=== PATIENT | female | born 1935 | race Hispanic/Latino ===

== ENCOUNTER 2021-07-12 17:31 | Inpatient (IN) | payer OTHER ==
[2021-07-12 18:59] LABS: Urine Blood 1+ (Negative); Urine Glucose Negative (Negative); Urine Protein 2+ (Negative)
--- NOTE | 2021-07-12 19:04 | RAD REPORT ---
EXAM DESCRIPTION: CT - CTHCSPWOC - 07/12/2021 6:58 pm CLINICAL HISTORY: Trauma, head and neck injury. syncope, head injury COMPARISON: No comparisons TECHNIQUE: Axial 5 mm thick images of the head were obtained. Axial 2 mm thick images of the cervical spine were obtained with sagittal and coronal reconstruction images generated and reviewed. All CT scans are performed using dose optimization technique as appropriate and may include automated exposure control or mA/KV adjustment according to patient size. FINDINGS: CT HEAD WITHOUT CONTRAST: No acute hemorrhage, hydrocephalus or extra-axial collection is identified.Mild generalized brain atr ophy is present with mild periventricular and deep white matter chronic microvascular ischemic change s.No areas of brain edema or midline shift. The paranasal sinuses and mastoids are clear.The calvarium is intact. CT CERVICAL SPINE WITHOUT CONTRAST: No fracture or subluxation.Moderate lower cervical degenerative spondylosis is present.No prevertebra l soft tissues swelling is identified. IMPRESSION: No acute intracranial or cervical spine findings.
[2021-07-12 19:07] LABS: Absolute Lymphocytes (CBC) 1.9 K/uL (0.7-4.9); Hematocrit 41.7 % (36.0-45.0); Lymphocytes % 28.1 % (15.3-44.8); MPV 9.1 fL (7.6-11.3); RBC Red Blood Cell Count 4.97 M/uL (3.86-4.86)
[2021-07-12 19:09] LABS: Protime INR 0.98
[2021-07-12] MEDS ORDERED: MORPHINE 2 MG/ML SYR ONE (19:20)
[2021-07-12] MEDS ORDERED: ONDANSETRON 4 MG/2 ML VIAL ONE (19:20)
[2021-07-12] MEDS ORDERED: HYDRALAZINE HCL 20 MG/ML VIAL ONE (19:22)
[2021-07-12 19:28] LABS: Albumin 3.9 g/dL (3.4-5.0); Bilirubin Direct 0.1 mg/dL (0-0.2); Bilirubin Total 0.4 mg/dL (0.2-1.0); Magnesium 2.2 mg/dL (1.8-2.4); Potassium 3.6 mmol/L (3.5-5.1); Protein, Total 8.4 g/dL (6.4-8.2); Troponin High Sensitivity 57.1 pg/mL (<58.9)
[2021-07-12 20:07] LABS: SARS-COV-2 RT PCR NEGATIVE (NEGATIVE)
--- NOTE | 2021-07-12 20:07 | RAD REPORT ---
EXAM DESCRIPTION: CT - Head angio - 07/12/2021 7:59 pm CLINICAL HISTORY: Dizziness, non-specific Headache, drowsiness COMPARISON: <Comparisons> TECHNIQUE: CT angiography of the head was performed with MIPs. All CT scans are performed using dose optimization technique as appropriate and may include automated exposure control or mA/KV adjustment according to patient size. FINDINGS: No evidence of aneurysm is detected. No flow-limiting stenosis or vascular malformation id entified. Antegrade flow is seen in the vertebral arteries. The vertebral arteries are codominant. The visualized dural venous sinuses are patent. IMPRESSION: No significant flow abnormality is detected.
--- NOTE | 2021-07-12 20:09 | RAD REPORT ---
EXAM DESCRIPTION: CT - Neck Angio - 07/12/2021 7:56 pm CLINICAL HISTORY: Dizziness, non-specific Headache, drowsiness TECHNIQUE: CT angiography of the neck vessels was performed with MIPs. All CT scans are performed using dose optimization technique as appropriate and may include automated exposure control or mA/KV adjustment according to patient size. FINDINGS: A left aortic arch is identified with normal three vessel configuration of the great vesse ls. Mild aortic arch atherosclerosis. No significant flow abnormality is seen of the common carotid bilaterally. Mild atherosclerosis is seen in both proximal internal carotid artery/carotid artery bulbs, greater o n the right. No significant stenosis is seen of either internal carotid artery. Normal flow is seen within both vertebral arteries. IMPRESSION: No significant flow abnormality of the neck vessels.
--- NOTE | 2021-07-12 20:09 | RAD REPORT ---
EXAM DESCRIPTION: RAD - Chest Single View - 07/12/2021 7:47 pm CLINICAL HISTORY: syncope Chest pain. COMPARISON: No comparisons FINDINGS: Portable technique limits examination quality. The lungs are mildly emphysematous but grossly clear. The heart is upper limit of normal in size. No displaced fractures.Aortic atherosclerosis. IMPRESSION: No acute intrathoracic process suspected.
--- NOTE | 2021-07-12 20:31 | EDPHYS ---
Physician Documentation [facility] Name: Lashell Mathur Age: 85 yrs Sex: Female : 1935 Arrival Date: 07/12/2021 Time: 17:37 Bed 18 Private MD: ED Physician Phoebe Antonio HPI: 07/12 18:29 This 85 yrs old Female presents to ER via Ambulatory with complaints of jmm Dizziness. 18:29 The patient presents with dizziness. Onset: The symptoms/episode began/occurred jmm acutely, 1 week(s) ago. Modifying factors: The symptoms are alleviated by nothing, the symptoms are aggravated by movement of head, changing position. Is an 85-year-old female with history of hypertension the presents emerged department with complaints of left-sided headache and dizziness beginning proximally 1 week ago after she had a syncopal episode and fall hitting her head. Patient states since then she has had ongoing left-sided headache and difficulty walking secondary to dizziness. Denies chest pain or shortness of breath. She has not taken her blood pressure medication since she left from [place].. Historical: - Allergies: 18:20 No Known Allergies; vg1 - Home Meds: 18:20 None [Active]; vg1 - PMHx: 18:20 Hypertensive disorder; vg1 - Immunization history:: Client reports receiving the 2nd dose of the Covid vaccine. - Social history:: Smoking status: Patient denies any tobacco usage or history of. ROS: 18:29 Constitutional: Negative for fever, chills, and weight loss, Cardiovascular: Negative jmm for chest pain, palpitations, and edema, Respiratory: Negative for shortness of breath, cough, wheezing, and pleuritic chest pain. 18:29 Neuro: Positive for headache. 18:29 All other systems are negative. Exam: 18:29 Constitutional: This is a well developed, well nourished patient who is awake, alert, jmm and in no acute distress. Head/Face: atraumatic. 18:29 Neck: Trachea midline, Supple Chest/axilla: Normal chest wall appearance and motion. Cardiovascular: Regular rate and rhythm. No edema appreciated Respiratory: Normal respirations, no respiratory distress appreciated Abdomen/GI: Non distended, soft Back: Normal ROM Skin: General appearance color normal MS/ Extremity: Moves all extremities, no obvious deformities appreciated, no edema noted to the lower extremities 18:29 Eyes: Nystagmus: nystagmus with fast component noted, bilaterally. 18:29 Neuro: Orientation: is normal, Mentation: is normal. 18:29 Psych: Behavior/mood is pleasant, cooperative. Vital Signs: 18:17 BP 255 / 104; Pulse 89; Resp 16; Temp 98.2; Pulse Ox 100% ; Weight 53.52 kg; Height 5 vg1 ft. 4 in. (162.56 cm); Pain 8/10; 19:22 BP 215 / 92; Pulse 90; Resp 16 S; Pulse Ox 98% on R/A; Pain 10/10; ag7 19:30 BP 218 / 85; Pulse 91 MON; Resp 19; Pulse Ox 99% on R/A; Pain 10/10; ag7 19:35 BP 189 / 72; Pulse 83; Resp 19 S; Pulse Ox 98% on R/A; Pain 10/10; ag7 20:16 BP 133 / 114; Pulse 102; Resp 19 S; Pulse Ox 98% on R/A; Pain 5/10; ag7 21:15 BP 150 / 67; Pulse 78; Resp 12; Pulse Ox 95% ; Pain 0/10; ag7 21:29 Pain 5/10; ag7 18:17 Body Mass Index 20.25 (53.52 kg, 162.56 cm) vg1 MDM: 18:29 Patient medically screened. [facility] 20:27 Data reviewed: vital signs, nurses notes. Counseling: I had a detailed discussion with kamran the patient and/or guardian regarding: the historical points, exam findings, and any diagnostic results supporting the discharge/admit diagnosis, lab results, radiology results, the need for further work-up and treatment in the hospital. ED course: I discussed the patient with Theresa Tapia whom accepted the patient to Dr. Lord's service. . 07/12 18:30 Order name: Basic Metabolic Panel; Complete Time: 19:32 [facility] 07/12 18:30 Order name: CBC with Diff; Complete Time: 19:13 [facility] 07/12 18:30 Order name: LFT's; Complete Time: 19:32 [facility] 07/12 18:30 Order name: Magnesium; Complete Time: 19:32 [facility] 07/12 18:30 Order name: NT PRO-BNP; Complete Time: 19:32 [facility] 07/12 18:30 Order name: PT-INR; Complete Time: 19:13 [facility] 07/12 18:30 Order name: Troponin HS; Complete Time: 19:32 [facility] 07/12 18:30 Order name: XRAY Chest (1 view); Complete Time: 20:10 [facility] 07/12 18:30 Order name: CT Head C Spine; Complete Time: 19:13 [facility] 07/12 18:34 Order name: COVID-19/FLU A+B (Document "Date of Onset" if Symptomatic); Complete Time: [facility] 20:08 07/12 18:59 Order name: Urine Dipstick-Ancillary; Complete Time: 19:01 [facility] 07/12 19:34 Order name: CT Head Angio; Complete Time: 20:08 [facility] 07/12 19:34 Order name: CT Neck Angio; Complete Time: 20:10 [facility] 07/12 18:30 Order name: EKG; Complete Time: 18:31 [facility] 07/12 18:30 Order name: Cardiac monitoring; Complete Time: 19:40 [facility] 07/12 18:30 Order name: EKG - Nurse/Tech; Complete Time: 19:40 [facility] 07/12 18:30 Order name: IV Saline Lock; Complete Time: 19:09 [facility] 07/12 18:30 Order name: Labs collected and sent; Complete Time: 19:09 [facility] 07/12 18:30 Order name: O2 Per Protocol; Complete Time: 19:09 [facility] 07/12 18:30 Order name: O2 Sat Monitoring; Complete Time: 19:09 [facility] Administered Medications: 19:39 Drug: morphine 2 mg Route: IVP; Site: right antecubital; ag7 21:29 Follow up: Pain 5/10 Adult; Response: No adverse reaction; Marked relief of symptoms; ag7 RASS: Alert and Calm (0) 19:39 Drug: Zofran (Ondansetron) 4 mg Route: IVP; Site: right antecubital; ag7 20:00 Follow up: Response: No adverse reaction; Marked relief of symptoms ag7 19:39 Drug: hydrALAZINE 5 mg Route: IVP; Site: right antecubital; ag7 20:00 Follow up: Response: No adverse reaction; Marked relief of symptoms ag7 20:56 Drug: Rocephin (cefTRIAXone) 1 grams Route: IV; Rate: calculated rate; Site: right ag7 antecubital; 20:57 Follow up: IV Status: Completed infusion; IV Intake: 10ml ag7 21:28 Follow up: Response: No adverse reaction ag7 20:56 Drug: Meclizine 25 mg Route: PO; ag7 21:28 Follow up: Response: No adverse reaction ag7 Disposition Summary: 07/12/21 20:30 Hospitalization Ordered Hospitalization Status: Observation [facility] Provider: Matthew Lord Location: Telemetry/MedSurg (observation) [facility] Condition: Stable [facility] Problem: new m Symptoms: are unchanged [facility] Bed/Room Type: Standard [facility] Room Assignment: 221(07/12/21 21:34) vc1 Diagnosis - Vertigo jmm - Syncope jmm - Urinary Tract Infection [facility] Forms: - Medication Reconciliation Form [facility] - SBAR form [facility] Addendum: 07/17/2021 18:07 Co-signature as Attending Physician, hPoebe Antonio MD. m a2 Signatures: Dispatcher [employer] EDMS Helder Cruz PA PA Phoebe Baxter MD MD ma2 Kimberly Ricardo RN RN vg1 Christina Fuchs RN RN vc1 Shahnaz Nieto, ALICAI RN ag7 Corrections: (The following items were deleted from the chart) 07/12 21:34 20:30 [facility] vc1
--- NOTE | 2021-07-12 20:31 | ER ---
Nurse's Notes [facility] Name: Lashell Mathur Age: 85 yrs Sex: Female : 1935 Arrival Date: 07/12/2021 Time: 17:37 Bed 18 Private MD: Diagnosis: Vertigo;Syncope;Urinary Tract Infection Presentation: 07/12 18:17 Chief complaint: Patient states: Last week Wednesday pt states fainted and fell and hit vg1 head; states has been feeling dizzy with headache since. Denies N/V. Stated did not get medical care last week. Coronavirus screen: Vaccine status: Patient reports receiving the 2nd dose of the covid vaccine. Client denies travel out of the [place] in the last 14 days. Ebola Screen: Patient denies exposure to infectious person. Patient denies travel to an Ebola-affected area in the 21 days before illness onset. Initial Sepsis Screen: Does the patient meet any 2 criteria? No. Patient's initial sepsis screen is negative. Does the patient have a suspected source of infection? No. Patient's initial sepsis screen is negative. Risk Assessment: Do you want to hurt yourself or someone else? Patient reports no desire to harm self or others. Onset of symptoms was July 05, 2021. 18:17 Method Of Arrival: Ambulatory vg1 18:17 Acuity: TERESA 2 vg1 Triage Assessment: 18:20 General: Appears uncomfortable, Behavior is calm, cooperative. Pain: Complains of pain vg1 in head Pain currently is 8 out of 10 on a pain scale. Neuro: Level of Consciousness is awake, alert, obeys commands, Oriented to person, place, time, situation. Respiratory: Airway is patent Respiratory effort is even, unlabored. GI: Patient currently denies nausea, vomiting. :. Historical: - Allergies: 18:20 No Known Allergies; vg1 - Home Meds: 18:20 None [Active]; vg1 - PMHx: 18:20 Hypertensive disorder; vg1 - Immunization history:: Client reports receiving the 2nd dose of the Covid vaccine. - Social history:: Smoking status: Patient denies any tobacco usage or history of. Screenin:02 Abuse screen: Denies threats or abuse. Nutritional screening: No deficits noted. ag7 Tuberculosis screening: No symptoms or risk factors identified. Fall Risk Fall in past 12 months (25 points). Secondary diagnosis (15 points) IV access (20 points). Ambulatory Aid- None/Bed Rest/Nurse Assist (0 pts). Gait- Weak (10 pts.). Mental Status- Oriented to own ability (0 pts). Total Holly Fall Scale indicates High Risk Score (45 or more points). Fall prevention measures have been instituted. Side Rails Up X 2 Placed Close to Nursing Station Frequent Obs/Assessments Occuring Family Present and informed to notify staff if the need to leave the bedside As available patient and family educated on Fall Prevention Program and Strategies. Assessment: 19:00 General: Appears in no apparent distress. Behavior is calm, cooperative, appropriate ag7 for age. Pain: Complains of pain in forehead Pain does not radiate. Pain currently is 10 out of 10 on a pain scale. Quality of pain is described as aching, pressure, Pain began suddenly, Is intermittent. Neuro: Level of Consciousness is awake, alert, obeys commands, Oriented to Appropriate for age Reports dizziness. Cardiovascular: Heart tones S1 S2 present Capillary refill < 3 seconds in bilateral fingers Clubbing of nail beds is absent Patient's skin is warm and dry. Pulses are palpable in right radial artery and left radial artery Edema is absent. Rhythm is. Respiratory: Airway is patent Trachea midline Respiratory effort is even, unlabored, Respiratory pattern is regular, symmetrical, Breath sounds are clear bilaterally. 21:27 Derm: Skin is dusky. ag7 22:00 Reassessment: Patient and/or family updated on plan of care and expected duration. Pain ag7 level reassessed. Patient is alert, oriented x 3, equal unlabored respirations, skin warm/dry/pink. 22:13 Reassessment: spoke to Shanelle for report RM 221, call back pending. ag7 Vital Signs: 18:17 BP 255 / 104; Pulse 89; Resp 16; Temp 98.2; Pulse Ox 100% ; Weight 53.52 kg; Height 5 vg1 ft. 4 in. (162.56 cm); Pain 8/10; 19:22 BP 215 / 92; Pulse 90; Resp 16 S; Pulse Ox 98% on R/A; Pain 10/10; ag7 19:30 BP 218 / 85; Pulse 91 MON; Resp 19; Pulse Ox 99% on R/A; Pain 10/10; ag7 19:35 BP 189 / 72; Pulse 83; Resp 19 S; Pulse Ox 98% on R/A; Pain 10/10; ag7 20:16 BP 133 / 114; Pulse 102; Resp 19 S; Pulse Ox 98% on R/A; Pain 5/10; ag7 21:15 BP 150 / 67; Pulse 78; Resp 12; Pulse Ox 95% ; Pain 0/10; ag7 21:29 Pain 5/10; ag7 18:17 Body Mass Index 20.25 (53.52 kg, 162.56 cm) vg1 ED Course: 17:37 Patient arrived in ED. ds1 18:20 Triage completed. vg1 18:20 Arm band placed on. 1 18:24 Helder Cruz PA is PHCP. m 18:24 Phoebe Antonio MD is Attending Physician. jmm 18:57 Yumiko Rodriguez, RN is Primary Nurse. ll1 18:57 Patient placed in an exam room, on a stretcher. ll1 18:58 Inserted saline lock: 20 gauge in right antecubital area, using aseptic technique. mb7 Blood collected. 18:59 CT Head C Spine In Process Unspecified. EDMS 18:59 COVID-19/FLU A+B (Document "Date of Onset" if Symptomatic) Sent. mb7 19:09 Basic Metabolic Panel Sent. mb7 19:09 Troponin HS Sent. mb7 19:10 PT-INR Sent. mb7 19:10 NT PRO-BNP Sent. mb7 19:10 LFT's Sent. mb7 19:10 Magnesium Sent. mb7 19:22 EKG done, by ED staff, reviewed by Helder BELTRE. mb7 19:29 Primary Nurse role handed off by Yumiko Rodriguez, RN mw2 19:39 Shahnaz Nieto, RN is Primary Nurse. ag7 19:49 XRAY Chest (1 view) In Process Unspecified. EDMS 19:57 CT Neck Angio In Process Unspecified. EDMS 20:00 CT Head Angio In Process Unspecified. EDMS 20:29 Matthew Lord is Hospitalizing Provider. m 21:03 Patient has correct armband on for positive identification. Bed in low position. Call ag7 light in reach. Side rails up X 1. Adult w/ patient. 21:03 No provider procedures requiring assistance completed. ag7 22:42 Patient admitted, IV remains in place. ag7 Administered Medications: 19:39 Drug: morphine 2 mg Route: IVP; Site: right antecubital; ag7 21:29 Follow up: Pain 5/10 Adult; Response: No adverse reaction; Marked relief of symptoms; ag7 RASS: Alert and Calm (0) 19:39 Drug: Zofran (Ondansetron) 4 mg Route: IVP; Site: right antecubital; ag7 20:00 Follow up: Response: No adverse reaction; Marked relief of symptoms ag7 19:39 Drug: hydrALAZINE 5 mg Route: IVP; Site: right antecubital; ag7 20:00 Follow up: Response: No adverse reaction; Marked relief of symptoms ag7 20:56 Drug: Rocephin (cefTRIAXone) 1 grams Route: IV; Rate: calculated rate; Site: right ag7 antecubital; 20:57 Follow up: IV Status: Completed infusion; IV Intake: 10ml ag7 21:28 Follow up: Response: No adverse reaction ag7 20:56 Drug: Meclizine 25 mg Route: PO; ag7 21:28 Follow up: Response: No adverse reaction ag7 Intake: 20:57 IV: 10ml; Total: 10ml. 7 Outcome: 20:30 Decision to Hospitalize by Provider. [facility] 22:41 Admitted to Med/surg accompanied by nurse, via wheelchair, room 221, Report called to olivia Wilhelm RN 22:41 Condition: stable 23:03 Patient left the ED. [facility] Signatures: Dispatcher [employer] EDMS Helder Cruz PA PA jmm [place], Demi ds1 Anjel Galeas mw2 Kimberly Ricardo, RN RN vg1 Yumiko Rodriguez RN RN mayra1 Irais Mcclelland mb7 Shahnaz Nieto, RN RN 7 Corrections: (The following items were deleted from the chart) 21:23 21:22 BP 218 / 85; Pulse 91bpm; MonitorResp 19bpm; Pulse Ox 99% RA; Pain 10/10; ag7 ag7 21:27 19:00 Respiratory: Airway is patent Trachea midline Respiratory effort is even, ag7 unlabored, Respiratory pattern is regular, symmetrical, Breath sounds are clear bilaterally. ag7 21:29 21:29 Response: No adverse reaction; Marked relief of symptoms ag7 ag7
[2021-07-12] MEDS ORDERED: MECLIZINE HCL 12.5 MG TAB ONE (20:48)
[2021-07-12] MEDS ORDERED: CEFTRIAXONE 1000 MG/VIAL ONE (20:49)
--- NOTE | 2021-07-12 22:55 | P.HP ---
Certification for Inpatient Patient admitted to: Inpatient With expected LOS: <2 Midnights Patient will require the following post-hospital care: None Practitioner: I am a practitioner with admitting privileges, knowledge of patient current condition, hospital course, and medical plan of care. Services: Services provided to patient in accordance with Admission requirements found in Title 42 Section 412.3 of the Code of Federal Regulations Patient History Date of Service: 07/12/21 Reason for admission: Dizziness History of Present Illness: Patient is an 85-year-old female with past medical history of hypertension who presented to the ED with complaints of left-sided headache and dizziness. She states that about 1 week ago, she fell and hit her head (unsure if she fell because of syncope or fell then had LOC). Since then, she has had ongoing left-sided headache and difficulty walking secondary to dizziness. She denies chest pain or shortness of breath. Patient is visiting her family from [place] and has not taken her blood pressure pressure medication since being here. She does not know the name of the medication she takes. She states that she is otherwise healthy and has no other medical problems. Initial blood pressure was 255/104 and she was given 5 mg of hydralazine and blood pressure eventually came down to 150/67. Head CT and CT head/neck angio negative. She was given meclizine which improved her dizziness. Other labs significant for BNP of 966 and urine positive for UTI. ED provider wishes to admit patient for further evaluation and treatment. Allergies No Known Allergies Allergy (Verified 07/12/21 23:20) - Past Medical/Surgical History Diabetic: No -: HTN Past Surgical History: Patient denies surgical history Psychosocial/ Personal History: Patient is visiting from [place]. - Family History Father -: Heart disease - Social History Smoking Status: Never smoker Alcohol use: No CD- Drugs: No Caffeine use: No Place of Residence: Home Review of Systems General: Other (dizziness, headache) Neurological: Weakness, Other (fall) Physical Examination - Physical Exam General: Alert, In no apparent distress, Oriented x3 HEENT: Atraumatic, PERRLA, Mucous membr. moist/pink, EOMI, Sclerae nonicteric Neck: Supple, 2+ carotid pulse no bruit, No LAD, Without JVD or thyroid abnormality Respiratory: Clear to auscultation bilaterally, Normal air movement Cardiovascular: Regular rate/rhythm, Normal S1 S2 Gastrointestinal: Normal bowel sounds, No tenderness Musculoskeletal: No tenderness Integumentary: No rashes Neurological: Normal speech, Normal strength at 5/5 x4 extr, Normal tone, Normal affect - Studies Laboratory Data (last 24 hrs) 07/12/21 18:45: PT 10.8, INR 0.98 07/12/21 18:45: WBC 6.8, Hgb 13.5, Hct 41.7, Plt Count 200 07/12/21 18:45: Sodium 140, Potassium 3.6, BUN 19 H, Creatinine 1.41 H, Glucose 108 H, Magnesium 2.2, Total Bilirubin 0.4, AST 14 L, ALT 23, Alkaline Phosphatase 101 Assessment and Plan - Problems (Diagnosis) (1) Falls Current Visit: Yes Status: Acute Qualifiers: Encounter type: sequela Qualified Code(s): W19.XXXS - Unspecified fall, sequela (2) Vertigo Current Visit: Yes Status: Acute (3) Hypertensive urgency Current Visit: Yes Status: Acute (4) UTI (urinary tract infection) Current Visit: Yes Status: Acute Qualifiers: Urinary tract infection type: acute cystitis Hematuria presence: without hematuria Qualified Code(s): N30.00 - Acute cystitis without hematuria (5) Hypertension Current Visit: Yes Status: Chronic Qualifiers: Hypertension type: primary hypertension Qualified Code(s): I10 - Essential (primary) hypertension - Plan -nystagmus noted on physical exam. Dizziness likely related to vertigo -Patient has been very hypertensive. Given hydralazine in the ED. We will start patient on metoprolol and hydralazine as needed. Monitor on telemetry -Patient has a UTI. Got 1 g Rocephin in the ED. We will continue -Consider neurology consult if patient's worsens/does not improve. Consider MRI. -Meclizine PRN dizziness -Continue IV fluids -Lovenox for DVT prophylaxis Discharge Plan: Home Plan to discharge in: 48 Hours - Advance Directives Does patient have a Living Will: No Does patient have a Durable POA for Healthcare: No - Code Status/Comfort Care Code Status Assessed: Yes (Full) Physician Review: Patient Assessed, Agree with Above Assessment and Plan Critical Care: No Time Spent Managing Pts Care (In Minutes): 50
[2021-07-12] MEDS ORDERED: MECLIZINE HCL 12.5 MG TAB PO PRN (23:02)
[2021-07-12] MEDS ORDERED: ONDANSETRON 4 MG/2 ML VIAL IV PRN (23:02)
[2021-07-12] MEDS: NA CHLORIDE 0.9% 1,000 ML IV SCH (23:49)
[2021-07-13 01:14] LABS: Urine Appearance Clear (Clear); Urine Bilirubin Negative (Negative); Urine Blood Trace-intact (Negative); Urine Color Yellow (Yellow); Urine Glucose Negative (Negative); Urine Protein 1+ (Negative); Urine Urobilinogen 0.2 mg/dL (0.2-1.0)
[2021-07-13 01:18] LABS: Urine Microscopic Reflex ORDER UMIC
[2021-07-13 01:30] LABS: Urine Bacteria >50 /HPF (<20); Urine Mucus 1+ /HPF (NONE SEEN); Urine Yeast MANY (NONE SEEN)
[2021-07-13 03:48] LABS: Absolute Lymphocytes (CBC) 1.4 K/uL (0.7-4.9); Lymphocytes % 17.8 % (15.3-44.8); RBC Red Blood Cell Count 4.56 M/uL (3.86-4.86)
[2021-07-13 04:17] LABS: Bilirubin Total 0.2 mg/dL (0.2-1.0); Magnesium 2.1 mg/dL (1.8-2.4); Phosphorus 3.5 mg/dL (2.5-4.9); Potassium 3.8 mmol/L (3.5-5.1); Protein, Total 6.7 g/dL (6.4-8.2); Thyroid Stimulating Hormone 0.75 uIU/mL (0.360-3.740)
[2021-07-13] MEDS: METOPROLOL TAR 25 MG TAB PO SCH ×2 (06:14→18:48)
[2021-07-13] MEDS: INSULIN -REGULAR HUMAN 50 UNIT/0.5 ML ML SQ SCH ×2 (07:30→11:30)
[2021-07-13] MEDS ORDERED: PNEUMOCOCCAL VACCINE 0.5 ML IMVAC ONE (08:00)
[2021-07-13] MEDS: ENOXAPARIN 30 MG/0.3 ML SQ SCH (09:12)
[2021-07-13] MEDS: NA CHLORIDE 0.9% 1,000 ML IV SCH (12:04)
[2021-07-13] MEDS: HYDRALAZINE HCL 20 MG/ML VIAL IV PRN ×2 (12:04→16:47)
--- NOTE | 2021-07-13 13:06 | P.PN ---
Subjective Date of Service: 07/13/21 Chief Complaint: Dizziness Patient stated dizziness has resolved. Blood pressure readings have improved. Physical Examination - Vital Signs Temperature: 97.0 F Blood Pressure: 188/88 Pulse: 70 Respirations: 16 Pulse Ox (%): 99 - Physical Exam General: Alert, In no apparent distress, Oriented x3 HEENT: Mucous membr. moist/pink Neck: JVD not distended Respiratory: Clear to auscultation bilaterally, Normal air movement Cardiovascular: No edema, Regular rate/rhythm, Normal S1 S2 Gastrointestinal: Soft and benign, Non-distended, No tenderness Musculoskeletal: No swelling, No tenderness Integumentary: No rashes, No cyanosis Neurological: Normal strength at 5/5 x4 extr, Cranial nerves 3-12 intact - Studies Laboratory Data (last 24 hrs) 07/12/21 18:45: PT 10.8, INR 0.98 07/12/21 18:45: WBC 6.8, Hgb 13.5, Hct 41.7, Plt Count 200 07/12/21 18:45: Sodium 140, Potassium 3.6, BUN 19 H, Creatinine 1.41 H, Glucose 108 H, Magnesium 2.2, Total Bilirubin 0.4, AST 14 L, ALT 23, Alkaline Phospha tase 101 Assessment And Plan - Current Problems (Diagnosis) (1) Falls Current Visit: Yes Status: Acute Qualifiers: Encounter type: sequela Qualified Code(s): W19.XXXS - Unspecified fall, sequela (2) Hypertensive urgency Current Visit: Yes Status: Acute (3) UTI (urinary tract infection) Current Visit: Yes Status: Acute Qualifiers: Urinary tract infection type: acute cystitis Hematuria presence: without hematuria Qualified Code(s): N30.00 - Acute cystitis without hematuria (4) Vertigo Current Visit: Yes Status: Acute (5) Chronic kidney disease, stage III (moderate) Current Visit: Yes Status: Acute - Plan Dizziness and vertigo resolved, blood pressure improved. Vertigo likely related to severe hypertension. Continue metoprolol. Add amlodipine. Seen by PT and assistive device with ambulation recommended. Continue IV Rocephin. Follow urine culture. Monitor renal function. Continue PT. Physician Review: Patient Assessed, Agree with Above Assessment and Plan
[2021-07-13] MEDS: ACETAMINOPHEN 500 MG TAB PO PRN (16:51)
[2021-07-13] MEDS ORDERED: CEFTRIAXONE 1000 MG/VIAL ONE (16:53)
[2021-07-13] MEDS ORDERED: CEFTRIAXONE 1,000 MG in NA CHLORIDE 0.9% 50 ML IVPB SCH (18:00)
[2021-07-14] MEDS: NA CHLORIDE 0.9% 1,000 ML IV SCH (01:16)
[2021-07-14 04:16] VITALS: BMI 19.7
[2021-07-14 04:35] LABS: Absolute Lymphocytes (CBC) 1.5 K/uL (0.7-4.9); Hematocrit 35.5 % (36.0-45.0); Lymphocytes % 21.5 % (15.3-44.8); MPV 9.2 fL (7.6-11.3); RBC Red Blood Cell Count 4.31 M/uL (3.86-4.86)
[2021-07-14 04:55] LABS: Albumin 2.9 g/dL (3.4-5.0); Bilirubin Total 0.3 mg/dL (0.2-1.0); Protein, Total 6.3 g/dL (6.4-8.2)
[2021-07-14] MEDS: METOPROLOL TAR 25 MG TAB PO SCH (05:26)
[2021-07-14] MEDS: ACETAMINOPHEN 500 MG TAB PO PRN ×2 (05:29→09:46)
[2021-07-14] MEDS: ENOXAPARIN 30 MG/0.3 ML SQ SCH (09:43)
[2021-07-14] MEDS: HYDRALAZINE HCL 20 MG/ML VIAL IV PRN (09:46)
[2021-07-14 09:51] VITALS: O2SAT 98
--- NOTE | 2021-07-14 11:05 | P.DS ---
Admission Date: 07/12/21 Discharge Date: 07/14/21 Disposition: ROUTINE DISCHARGE Discharge Condition: FAIR Reason for Admission: Dizziness - Problems (1) Falls Status: Acute Qualifiers: Encounter type: sequela Qualified Code(s): W19.XXXS - Unspecified fall, sequela (2) Hypertensive urgency Status: Acute (3) UTI (urinary tract infection) Status: Acute Qualifiers: Urinary tract infection type: acute cystitis Hematuria presence: without hematuria Qualified Code(s): N30.00 - Acute cystitis without hematuria (4) Vertigo Status: Acute (5) Chronic kidney disease, stage III (moderate) Status: Acute Brief History of Present Illness: 85-year-old female with past medical history of hypertension presented to the ED with complaints of left-sided headache and dizziness. She states that about 1 week ago, she fell and hit her head (unsure if she fell because of syncope or fell then had LOC). Since then, she has had ongoing left-sided headache and difficulty walking secondary to dizziness. She denied chest pain or shortness of breath. Patient is visiting her family from [place] and had not taken her blood pressure pressure medication since being here. She does not know the name of the medication she takes. She stated that she is otherwise healthy and has no other medical problems. Initial blood pressure was 255/104 and she was given 5 mg of hydralazine and blood pressure eventually came down to 150/67. Head CT and CT head/neck angio negative. She was given meclizine which improved her dizziness. Other labs significant for BNP of 966 and urine positive for UTI. Patient admitted for further management. Hospital Course: Patient was admitted to the medical floor, troponin trended negative, blood pressure was managed with oral metoprolol. Hydralazine given for BP spike. Blood pressure improved with treatment. UA suggested the presence of UTI. Urine culture yielded mixed growth. Patient briefly treated with IV Rocephin. She was seen by physical therapy and she ambulated up to 260 feet with a walker. Patient has clinically improved and deemed stable for discharge. She will need home health. She stated she is planning to go back to [place] within days. Patient prescribed metoprolol and amlodipine for blood pressure control. Vital Signs/Physical Exam: Temp Pulse Resp BP Pulse Ox 98.1 F 71 16 161/73 H 98 07/14/21 08:00 07/14/21 08:00 07/14/21 08:00 07/14/21 08:00 07/14/21 08:00 General: Alert, In no apparent distress, Oriented x3 HEENT: Mucous membr. moist/pink Neck: Supple, JVD not distended Respiratory: Clear to auscultation bilaterally, Normal air movement Cardiovascular: No edema, Regular rate/rhythm, Normal S1 S2 Gastrointestinal: Soft and benign, Non-distended, No tenderness Musculoskeletal: No swelling Integumentary: No tenderness/swelling, No cyanosis Neurological: Normal strength at 5/5 x4 extr Laboratory Data at Discharge: WBC 6.9 K/uL (4.3-10.9) 07/14/21 04:01 Hgb 11.8 g/dL (12.0-15.0) L 07/14/21 04:01 Hct 35.5 % (36.0-45.0) L 07/14/21 04:01 Plt Count 186 K/uL (152-406) 07/14/21 04:01 PT 10.8 SECONDS (9.5-12.5) 07/12/21 18:45 INR 0.98 07/12/21 18:45 Sodium 144 mmol/L (136-145) 07/14/21 04:01 Potassium 4.0 mmol/L (3.5-5.1) 07/14/21 04:01 BUN 17 mg/dL (7-18) 07/14/21 04:01 Creatinine 1.30 mg/dL (0.55-1.3) 07/14/21 04:01 Glucose 116 mg/dL (74-106) H 07/14/21 04:01 Phosphorus 3.5 mg/dL (2.5-4.9) 07/13/21 03:33 Magnesium 2.1 mg/dL (1.8-2.4) 07/13/21 03:33 Total Bilirubin 0.3 mg/dL (0.2-1.0) 07/14/21 04:01 AST 12 U/L (15-37) L 07/14/21 04:01 ALT 17 U/L (12-78) 07/14/21 04:01 Alkaline Phosphatase 75 U/L (45-117) 07/14/21 04:01 Triglycerides 135 mg/dL (<150) 07/13/21 03:33 Cholesterol 184 mg/dL (<200) 07/13/21 03:33 HDL Cholesterol 41 mg/dL (40-60) 07/13/21 03:33 Cholesterol/HDL Ratio 4.49 07/13/21 03:33 Home Medications: Amlodipine [Norvasc*] 5 mg PO DAILY #30 tab 07/14/21 Metoprolol Tartrate [Lopressor*] 25 mg PO BID 6AM 6PM #60 tab 07/14/21 New Medications: Metoprolol Tartrate [Lopressor*] 25 mg PO BID 6AM 6PM #60 tab Amlodipine [Norvasc*] 5 mg PO DAILY #30 tab Diet: AHA Activity: Fall precautions Time spent managing pt's care (in minutes): 33
[2021-07-14 12:36] VITALS: BP 169/78; TEMP 97.8
== END 2021-07-14 14:25 | disposition home or self-care (01) | DRG 305 ==
LOC: ER 17:31 → ERHOLD 21:11 → 2ND 22:45
PROVIDERS: ADMIT Internal Medicine; ATTEND Internal Medicine
DX: I16.0 Hypertensive urgency (principal); N30.00 Acute cystitis without hematuria; I12.9 Hypertensive chronic kidney disease with stage 1 through stage 4 chronic kidney disease, or unspecified chronic kidney disease; N18.30 Chronic kidney disease, stage 3 unspecified; Z91.81 History of falling; Z20.822 Contact with and (suspected) exposure to COVID-19
CPT/HCPCS: 0240U; 36415; 70450; 70496; 70498; 71045; 72125; 80048; 80053; 80061; 80076; 81003; 81015; 82947; 83735; 83880; 84100; 84439; 84443; 84484; 85025; 85610; 87086; 87088; 93005; 96374; 96375; 97112; 97116; 97161; 97530; 99285; J0360; J1650; J2270; J2405; J7030; J8597; Q9967

== ENCOUNTER 2022-08-28 09:02 | Emergency (ER) | payer OTHER ==
[2022-08-28 09:34] LABS: Absolute Lymphocytes (CBC) 1.9 K/uL (0.7-4.9); Lymphocytes % 29.9 % (15.3-44.8); MPV 8.7 fL (7.6-11.3); RBC Red Blood Cell Count 4.88 M/uL (3.86-4.86)
[2022-08-28] MEDS ORDERED: NITROGLYCERIN 1 GM PKT TD ONE (09:38)
--- NOTE | 2022-08-28 09:48 | EDPHYS ---
Physician Documentation [facility] Name: Lashell Mathur Age: 86 yrs Sex: Female : 1935 Arrival Date: 08/28/2022 Time: 09:02 Bed 17 Private MD: ED Physician Gerard Madison HPI: 08/28 10:09 This 86 yrs old Female presents to ER via Ambulatory with complaints of Chest rt Pain, Dizziness. 10:09 Patient presents to the ED with intermittent headaches, dizziness described as rt lightheadedness and chest pain for several days. Patient states that she has not taken her blood pressure medications in quite some time. The patient denies shortness of breath, acute complaints at this time. Symptoms are moderate severity, no other aggravating or alleviating factors.. Historical: - Allergies: :08 No Known Allergies; ld1 - PMHx: 09:08 Hypertensive disorder; ld1 - PSHx: 09:08 None; ld1 - Immunization history:: Adult Immunizations up to date, Client reports receiving the 2nd dose of the Covid vaccine. - Social history:: Smoking status: Patient denies any tobacco usage or history of. Patient/guardian denies using alcohol. - Family history:: not pertinent. ROS: 10:09 Constitutional: Negative for fever, chills, and weight loss, Respiratory: Negative for rt shortness of breath, cough, wheezing, and pleuritic chest pain, Abdomen/GI: Negative for abdominal pain, nausea, vomiting, diarrhea, and constipation, MS/Extremity: Negative for injury and deformity, Skin: Negative for injury, rash, and discoloration, Psych: Negative for depression, anxiety, suicide ideation, homicidal ideation, and hallucinations. 10:09 Cardiovascular: Positive for chest pain, Negative for edema. 10:09 Neuro: Positive for dizziness, headache. Exam: 10:09 Constitutional: This is a well developed, well nourished patient who is awake, alert, rt and in no acute distress. Head/Face: Normocephalic, atraumatic. Chest/axilla: Normal chest wall appearance and motion. Nontender with no deformity. No lesions are appreciated. Cardiovascular: Regular rate and rhythm with a normal S1 and S2. No gallops, murmurs, or rubs. Normal PMI, no JVD. No pulse deficits. Respiratory: Lungs have equal breath sounds bilaterally, clear to auscultation and percussion. No rales, rhonchi or wheezes noted. No increased work of breathing, no retractions or nasal flaring. Abdomen/GI: Soft, non-tender, with normal bowel sounds. No distension or tympany. No guarding or rebound. No evidence of tenderness throughout. Skin: Warm, dry with normal turgor. Normal color with no rashes, no lesions, and no evidence of cellulitis. MS/ Extremity: Pulses equal, no cyanosis. Neurovascular intact. Full, normal range of motion. Neuro: Awake and alert, GCS 15, oriented to person, place, time, and situation. Cranial nerves II-XII grossly intact. Motor strength 5/5 in all extremities. Sensory grossly intact. Cerebellar exam normal. Normal gait. Psych: Awake, alert, with orientation to person, place and time. Behavior, mood, and affect are within normal limits. 10:09 ECG was reviewed by the Attending Physician. Vital Signs: 09:06 BP 239 / 115; Pulse 92; Resp 18; Temp 98.2(TE); Pulse Ox 100% on R/A; Weight 49.9 kg; ld1 Height 5 ft. 3 in. ; Pain 3/10; 09:52 BP 234 / 98; db 09:57 BP 233 / 97; Pulse 100; Resp 18; Pulse Ox 100% on R/A; db 10:15 BP 205 / 85; db 10:30 BP 205 / 95; Pulse 92; Resp 14; Pulse Ox 97% on R/A; db 09:06 Body Mass Index 19.49 (49.90 kg, 160.02 cm) ld1 09:06 Pain Scale: Adult ld1 MDM: 09:12 Patient medically screened. rt 10:13 Differential diagnosis: Intracranial hemorrhage, hypertensive emergency, acute coronary rt syndrome. Data reviewed: vital signs, nurses notes, lab test result(s), EKG, radiologic studies. Consideration of Admission/Observation Patient requires transfer for higher level of care. Management of patient was discussed with the following: Master Mechanic: Discussed with accepting neurointensive. I considered the following discharge prescriptions or medication management in the emergency department Medications were administered in the Emergency Department. See MAR. Independent interpretation of the following test(s) in the Emergency Department CT Scan: My interpretation is Hemorrhage seen on interpretation of the CT scan images. Discussion of test interpretation with radiology: I had a discussion with radiology regarding a test interpretation. Discussed findings of hemorrhage with radiologist. Counseling: I had a detailed discussion with the patient and/or guardian regarding: the historical points, exam findings, and any diagnostic results supporting the discharge/admit diagnosis, lab results, radiology results, the need to transfer to another facility. 08/28 09:11 Order name: Basic Metabolic Panel; Complete Time: 10:14 ld08/28 09:11 Order name: CBC with Diff; Complete Time: 09:57 ld08/28 09:11 Order name: Troponin HS; Complete Time: 10:14 ld08/28 09:21 Order name: LFT's; Complete Time: 09:57 rt 08/28 09:21 Order name: NT PRO-BNP; Complete Time: 09:57 rt 08/28 09:11 Order name: XRAY Chest (1 view); Complete Time: 10:44 ld08/28 09:21 Order name: CT Head Brain wo Cont; Complete Time: 10:14 rt 08/28 09:11 Order name: EKG; Complete Time: 09:12 ld08/28 09:11 Order name: Cardiac monitoring; Complete Time: 09:55 ld08/28 09:11 Order name: EKG - Nurse/Tech; Complete Time: 09:11 08/28 09:11 Order name: IV Saline Lock; Complete Time: 09:55 ld08/28 09:11 Order name: Labs collected and sent; Complete Time: 09:55 08/28 09:11 Order name: O2 Per Protocol; Complete Time: 09:55 08/28 09:11 Order name: O2 Sat Monitoring; Complete Time: 09:55 ld08/28 09:51 Order name: Misc. Order: Goal SBP<140; Complete Time: 11:03 rt EC:09 Rate is 84 beats/min. Rhythm is regular, Normal Sinus Rhythm with PACs. QRS [place] is rt Normal. SC interval is normal. QRS interval is normal. QT interval is normal. Clinical impression: NSR w/ Non-specific ST/T Changes. Administered Medications: 09:54 CANCELLED (Physician Discretion; not ): Nitroglycerin Transdermal Ointment 2 % 1 inches db Transdermal once 10:10 Drug: niCARdipine IV 5 mg/hr Route: IV; Rate: calculated rate; Site: right antecubital; db 10:35 Follow up: Response: No adverse reaction; Rate change 7.5 mg/hr db 11:02 Follow up: Response: No adverse reaction; IV Status: Infusion continued upon transfer db 10:58 Drug: Keppra IV 2000 mg Route: IV; Rate: calculated rate; Site: right antecubital; db 11:01 Follow up: IV Status: Infusion continued upon transfer db 10:58 Drug: Ondansetron IVP 4 mg Route: IVP; Site: right antecubital; db 11:03 Follow up: Response: No adverse reaction db Disposition: 10:13 Critical Care:. rt Disposition Summary: 08/28/22 09:47 Transfer Ordered Transfer Location: [facility] ms3 Reason: Higher level of care ms3 Problem: new ms3 Symptoms: are unchanged ms3 Condition: Critical(08/28/22 09:47) ms3 Accepting Physician: (08/28/22 11:05) rosa Diagnosis - Nontraumatic intracranial hemorrhage, unspecified ms3 - Essential (primary) hypertension rt Forms: - Medication Reconciliation Form ms3 - SBAR form ms3 Critical care time excluding procedures: 10:13 Critical care time: Bedside Care: 30 minutes, Consultation: 10 minutes. Total time: 40 rt minutes Signatures: Dispatcher [employer] Milana Lemus RN RN ss Iam Mccoy DO DO ms3 Odalis Mccoy RN RN ld1 Cassandra Chavez RN RN db Gerard Madison MD MD rt Corrections: (The following items were deleted from the chart) 09:47 09:47 Dr ms3 ms3 09:47 09:47 Stable ms3 ms3 09:54 09:21 Nitroglycerin Transdermal Ointment 2 % 1 inches Transdermal once ordered. rt db 10:15 09:47 Dr ms3 rt 11:05 10:15 rt ss
--- NOTE | 2022-08-28 09:48 | ER ---
Nurse's Notes [facility] Name: Lashell Mathur Age: 86 yrs Sex: Female : 1935 Arrival Date: 08/28/2022 Time: 09:02 Bed 17 Private MD: Diagnosis: Nontraumatic intracranial hemorrhage, unspecified;Essential (primary) hypertension Presentation: 08/28 09:06 Chief complaint: Patient states: Intermittent chest pain, skin problem, dizziness + ld1 headache, recent weight loss. Coronavirus screen: At this time, the client does not indicate any symptoms associated with coronavirus-19. Ebola Screen: No symptoms or risks identified at this time. Initial Sepsis Screen: Does the patient meet any 2 criteria? No. Patient's initial sepsis screen is negative. Does the patient have a suspected source of infection? No. Patient's initial sepsis screen is negative. Risk Assessment: Do you want to hurt yourself or someone else? Patient reports no desire to harm self or others. Onset of symptoms was August 28, 2022. 09:06 Method Of Arrival: Ambulatory ld1 09:06 Acuity: TERESA 3 ld1 Triage Assessment: 09:08 General: Appears in no apparent distress. comfortable, Behavior is calm, cooperative, ld1 appropriate for age. Pain: Complains of pain in chest Pain does not radiate. Pain currently is 3 out of 10 on a pain scale. Quality of pain is described as throbbing, Pain began suddenly, Is continuous. EENT: No signs and/or symptoms were reported regarding the EENT system. Neuro: Level of Consciousness is awake, alert, obeys commands, Oriented to person, place, time, situation. Cardiovascular: Capillary refill < 3 seconds Patient's skin is warm and dry. Rhythm is. Respiratory: Airway is patent Respiratory effort is even, unlabored. GI: Abdomen is flat, non-distended. : No signs and/or symptoms were reported regarding the genitourinary system. Derm: No signs and/or symptoms reported regarding the dermatologic system. Musculoskeletal: No signs and/or symptoms reported regarding the musculoskeletal system. Historical: - Allergies: 09:08 No Known Allergies; ld1 - PMHx: 09: Hypertensive disorder; ld1 - PSHx: : None; ld1 - Immunization history:: Adult Immunizations up to date, Client reports receiving the 2nd dose of the Covid vaccine. - Social history:: Smoking status: Patient denies any tobacco usage or history of. Patient/guardian denies using alcohol. - Family history:: not pertinent. Screenin:55 [facility] ED Fall Risk Assessment (Adult) History of falling in the last 3 months, db including since admission Yes- single mechanical fall (1 pt) Confusion or Disorientation Yes (5 pts) Intoxicated or Sedated No (0 pts) Impaired Gait Yes (1 pt) Mobility Assist Device Used Yes (1 pt) Altered Elimination No (0 pt) Score/Fall Risk Level 3 or more points = High Risk Oriented to surroundings, Maintained a safe environment, Hourly rounding (assess needs \T\ fall precautionary measures) done. Abuse screen: Denies threats or abuse. Denies injuries from another. Nutritional screening: No deficits noted. Tuberculosis screening: No symptoms or risk factors identified. Assessment: 09:25 Reassessment: Patient appears in no apparent distress at this time. Patient and/or db family updated on plan of care and expected duration. Pain level reassessed. Patient is alert, oriented x 3, equal unlabored respirations, skin warm/dry/pink. dizziness, hypertension. General: Appears in no apparent distress. comfortable, Behavior is calm, cooperative. 09:56 Derm: Rash noted that is red, noted red/purple pin size rash all over patient body. db Notified Dr. Madison. 10:38 Reassessment: Patient appears in no apparent distress at this time. Patient and/or db family updated on plan of care and expected duration. Pain level reassessed. Patient is alert, oriented x 3, equal unlabored respirations, skin warm/dry/pink. 10:38 Reassessment: patient placed on puriwick. db 10:39 Pain: Denies pain. db 10:39 Reassessment: Called [facility] to give report for patient to ALICIA snider. db 10:40 Reassessment: unable to obtain PTT, PT blood work. db 10:59 Reassessment: Life flight arrived for patient belt picker and transfer. db 11:04 Reassessment: Patient appears in no apparent distress at this time. Patient and/or db family updated on plan of care and expected duration. Pain level reassessed. Patient is alert, oriented x 3, equal unlabored respirations, skin warm/dry/pink. Transferred by [facility]. Pain: Complains of pain in head. Neuro: Level of Consciousness is awake, alert, obeys commands. Vital Signs: 09:06 BP 239 / 115; Pulse 92; Resp 18; Temp 98.2(TE); Pulse Ox 100% on R/A; Weight 49.9 kg; ld1 Height 5 ft. 3 in. ; Pain 3/10; 09:52 BP 234 / 98; db 09:57 BP 233 / 97; Pulse 100; Resp 18; Pulse Ox 100% on R/A; db 10:15 BP 205 / 85; db 10:30 BP 205 / 95; Pulse 92; Resp 14; Pulse Ox 97% on R/A; db 09:06 Body Mass Index 19.49 (49.90 kg, 160.02 cm) ld1 09:06 Pain Scale: Adult ld1 Vitals: 10:30 Cardiac Rhythm Assessment Regular Sinus rhythm. db ED Course: 09:03 Patient arrived in ED. ts1 09:08 Triage completed. ld1 09:08 Arm band placed on right wrist. EKG completed in triage. Results shown to MD. ld1 09:12 Gerard Madison MD is Attending Physician. rt 09:14 Cassandra Chavez, ALICIA is Primary Nurse. db 09:15 EKG done, by ED staff, reviewed by Gerard Madison MD. zm 09:25 Inserted saline lock: 22 gauge in right antecubital area, using aseptic technique. db Blood collected. 09:29 XRAY Chest (1 view) In Process Unspecified. EDMS 09:46 CT Head Brain wo Cont In Process Unspecified. EDMS 09:48 initiated a transfer with Cedrick Croft Rn from the [facility]. eb 10:20 administrative approval given by Cedrick Croft Rn/ patient has been accepted to [facility] 7 south 5 bed 11/ Dr. Pinto has accepted the patient in transfer/ report to be called to [phone]. 11:04 No provider procedures requiring assistance completed. Patient transferred, IV remains db in place. Patient maintains SpO2 saturation greater than 95% on room air. Administered Medications: 09:54 CANCELLED (Physician Discretion; not ): Nitroglycerin Transdermal Ointment 2 % 1 inches db Transdermal once 10:10 Drug: niCARdipine IV 5 mg/hr Route: IV; Rate: calculated rate; Site: right antecubital; db 10:35 Follow up: Response: No adverse reaction; Rate change 7.5 mg/hr db 11:02 Follow up: Response: No adverse reaction; IV Status: Infusion continued upon transfer db 10:58 Drug: Keppra IV 2000 mg Route: IV; Rate: calculated rate; Site: right antecubital; db 11:01 Follow up: IV Status: Infusion continued upon transfer db 10:58 Drug: Ondansetron IVP 4 mg Route: IVP; Site: right antecubital; db 11:03 Follow up: Response: No adverse reaction db Outcome: 09:47 ER care complete, transfer ordered by . ms3 11:03 Transferred by helicopter to [facility], Transfer form completed. db 11:03 Condition: stable 11:03 Instructed on the need for transfer. 11:05 Patient left the ED. Signatures: Dispatcher [employer] EDMilana Martinez RN RN Carrie Ny Marcus, DO DO ms3 Odalis Mccoy RN RN ld1 Lyla Cano Danielle, RN RN db Gerard Madison MD MD rt Diana Plascenica PAS PAS ts1
[2022-08-28 09:56] LABS: Albumin 3.3 g/dL (3.4-5.0); Bilirubin Direct 0.1 mg/dL (0-0.2); Bilirubin Indirect, Calculated 0.2 mg/dL (0.2-0.8); Bilirubin Total 0.3 mg/dL (0.2-1.0); Protein, Total 7.6 g/dL (6.4-8.2)
[2022-08-28 09:57] LABS: Potassium 3.5 mEq/L (3.5-5.1)
[2022-08-28 10:04] LABS: Troponin High Sensitivity 69.5 pg/mL (<58.9)
--- NOTE | 2022-08-28 10:06 | RAD REPORT ---
EXAM DESCRIPTION: CT - Head Brain Wo Cont - 08/28/2022 9:44 am CLINICAL HISTORY: ETIENNE, HTN Headache, drowsiness COMPARISON: Head angio dated 07/12/2021Head angio dated 07/12/2021 TECHNIQUE: All CT scans are performed using dose optimization technique as appropriate and may inclu de automated exposure control or mA/KV adjustment according to patient size. FINDINGS: There is a oblong intercerebral hematoma present measuring 19 x 10 mm. This is adjacent to the left thalamus and close to the posterior limb left internal capsule.Moderate generalized brain a trophy is present with mild periventricular and deep white matter chronic microvascular ischemic benson ges.No areas of brain edema or evidence of midline shift. The paranasal sinuses and mastoids are clear. The calvarium is intact. IMPRESSION: 19 x 10 mm acute intercerebral hematoma is present as detailed, this is favored to be re lated to hypertensive bleed. The findings were discussed with Dr. Madison in the ER On 08/28/2022 at 9:45 a.m. by telephone.
[2022-08-28] MEDS ORDERED: Nicardipine/NS 25 MG/250 ML KIT IV ONE (10:07)
--- NOTE | 2022-08-28 10:24 | RAD REPORT ---
EXAM DESCRIPTION: RAD - Chest Single View - 08/28/2022 9:28 am CLINICAL HISTORY: CHEST PAIN Chest pain. COMPARISON: Chest Single View dated 07/12/2021 FINDINGS: Portable technique limits examination quality. 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 The heart is normal in size. No displaced fractures.Mi ld aortic atherosclerosis. IMPRESSION: No acute intrathoracic process suspected.
[2022-08-28] MEDS ORDERED: LEVETIRACETAM 500 MG/5 ML VIAL IV ONE (11:01)
[2022-08-28] MEDS ORDERED: ONDANSETRON 4 MG/2 ML VIAL ONE (11:01)
[2022-08-28] MEDS ORDERED: NA CHLORIDE 0.9% 100 ML ONE (11:02)
[2022-08-28 11:19] VITALS: TEMP 98.2
[2022-08-28 11:32] VITALS: BP 205/95; O2SAT 97
--- NOTE | 2022-08-31 12:12 | EKG ---
Test Date: 2022-08-28 Test Time: 09:11:15 Visual Manager: MANISHA MEASUREMENT RESULTS: Intervals: Rate: 84 NV: 140 QRSD: 66 QT: 370 QTc: 437 [place]: P: 80 NV: 140 QRS: 40 T: 98 INTERPRETIVE STATEMENTS: Sinus rhythm with premature atrial complexes Low voltage QRS Nonspecific ST and T wave abnormality Abnormal ECG Compared to ECG 07/12/2021 19:14:46 Atrial premature complex(es) now present Low QRS voltage now present ST (T wave) deviation now present Sinus arrhythmia no longer present Electronically Signed On 08-31-22 12:01:46 CDT by Jeremiah Leonard
== END 2022-08-28 11:05 | disposition short-term general hospital (02) ==
LOC: ER 09:02
DX: I62.9 Nontraumatic intracranial hemorrhage, unspecified (principal); I10 Essential (primary) hypertension; R07.9 Chest pain, unspecified
CPT/HCPCS: 96365; 93005; 85025; 80048; 36415; 80076; 84484; 83880; 70450; 71045; 96375; 99285; J1953; J2405

== ENCOUNTER 2022-12-08 17:17 | Emergency (ER) | payer OTHER ==
--- OUTSIDE RECORDS SUMMARY | 2022-12-08 18:04 | XMS REPORT | Continuity of Care Document ---
:1935 Author Organization [facility] t Address [address] [facility] [address] [place] [address] Care Team Providers Name Role Phone LYNETTE AMADOR Attending Clinician Unavailable Carla COLBERT, Rosario Wilkins Attending Clinician [phone] Jesus Toney MD, Kirsten Braun Attending Clinici an Lynette Amador MD Attending Clinician ROSARIO AGUIRRE Attending Clinician Unavailable ROSARIO AGUIRRE Admitting Clinician Unavailable Payers Payer Name Policy Type Policy Number Effective Date Expiration Date Yenny [facility] [id number] 2022 [facility] 00:00:00 MEDICARE A B [id number] Problems Condition Condition Condition Status Onset Resolution Last Treating Co mments Source Name Details Category Date Date Treatment Clinician Date Hypertensi Hypertensi Disease Active [facility], urgency, 00:00: Medica l malignant malignant 00 [facility] ICH Disease Recurre [facility] (intracere (intracere nce 08-28 Tracie kes bral bral 00:00: Medical hemorrhage hemorrhage 00 Ce nter ) ) Allergies, Adverse Reactions, Alerts Allergy Allergy Status Severity Reaction(s) Onset Inactive Treating Comm ents Source Name Type Date Date Clinician NO KNOWN Allergy Active [facility] Social History Social Habit Start Date Stop Date Quantity Comments Source Tobacco use and 2022-08-28 2022-08-28 Sm[address]eless [address] [facility] exposure 00:00:00 00:00:00 [facility]-user [facility] Alcohol intake 2022-08-28 2022-08-[address] [facility] 00:00:00 00:00:00 [facility] Sex Assigned At [birth year] JEVON Ferro [facility] Smoking Status Start Date Stop Date Source Never smoked tobacco [facility] Medications Ordered Filled Start Stop Current Ordering Indication Dosage Frequency Signature Comments Components Source Medication Medication Date Date Medication? Clinician (SIG) Name Name carvediloL 2023- No 25mg Q.5D Take [address] (COREG) 25 6-15 06-14 tablet (25 Tracie kes MG tablet 00:00: 23:59 mg total) Me dical 00 :00 by mouth 2 Center (two) times daily. NIFEdipine 2023- No 30mg QD Take [address] [facility] [address] (PROCARDIA- 6-15 06-14 tablet (30 L ukes XL) 30 MG 00:00: 23:59 mg total) Me dical (OSM) 24 hr 00 :00 by mouth Cent er tablet daily. NIFEdipine 2022- No 30mg QD Take [address] (PROCARDIA- 6-14 06-15 tablet (30 L ukes XL) 30 MG 00:00: 00:00 mg total) Me dical (OSM) 24 hr 00 :00 by mouth Cent er tablet daily. carvediloL 2022- No 25mg Q.5D Take [address] (COREG) 25 6-14 06-15 tablet (25 Tracie kes MG tablet 00:00: 00:00 mg total) Me dical 00 :00 by mouth 2 Center (two) times daily. Vital Signs Vital Name Observation Time Observation Value Comments Source HEIGHT 2022-08-28 12:00:00 160 cm WEIGHT 2022-08-28 12:00:00 39 kg HEIGHT 2022-08-28 12:00:00 160 cm WEIGHT 2022-08-28 12:00:00 39 kg HEIGHT 2022-08-28 12:00:00 160 cm WEIGHT 2022-08-28 12:00:00 39 kg Systolic blood 2022-09-02 07:59:00 120 mm[Hg] [facility] Diastolic blood 2022-09-02 07:59:00 56 mm[Hg] [facility] Heart rate 2022-09-02 07:59:00 72 /min [facility] Body temperature 2022-09-02 07:59:00 37.06 Helga [facility] Respiratory rate 2022-09-02 07:59:00 19 /min [facility] Oxygen saturation in 2022-09-02 07:59:00 96 /min [facility] Arterial blood by Medical Ce nter Pulse oximetry Body weight 2022-08-28 12:00:00 39 kg [facility] BMI 2022-08-28 12:00:00 15.23 kg/m2 [facility] Body height 2022-08-28 12:00:00 160 cm [facility] Procedures Procedure Date / Time Performing Clinician Source Performed POCT-GLUCOSE METER 2022-09-02 08:12:00 Perry, [facility] POCT-GLUCOSE METER 2022-09-02 04:47:00 Perry, [facility] BASIC METABOLIC PANEL 2022-09-02 04:18:00 Perry, [facility] CBC W/PLT COUNT & AUTO 2022-09-02 04:18:00 Perry, [facility] CBC W/PLT COUNT & AUTO 2022-09-02 04:18:00 Perry, [facility] POCT-GLUCOSE METER 2022-09-02 00:15:00 Perry, [facility] POCT-GLUCOSE METER 2022-09-01 17:34:00 [facility], [facility] 2D ECHO W/ DOPPLER 2022-09-01 12:58:[address] [facility] (CW/PW/COLOR) [facility] POCT-GLUCOSE METER 2022-09-01 08:05:00 Perry, [facility] POCT-GLUCOSE METER 2022-09-01 06:09:00 Perry, [facility] BASIC METABOLIC PANEL 2022-09-01 04:41:00 Perry, [facility] CBC W/PLT COUNT & AUTO 2022-09-01 04:41:00 Perry, [facility] CBC W/PLT COUNT & AUTO 2022-09-01 04:41:00 Perry, [facility] CTA CAROTID 2022-09-01 03:53:38 Feng [facility] CTA BRAIN 2022-09-01 03:53:38 Shaye Toney [facility] POCT-GLUCOSE METER 2022-09-01 00:13:00 Perry, [facility] MR BRAIN WITH & WITHOUT 2022-08-31 18:34:14 Perry, [facility] IV CONTRAST [facility] POCT-GLUCOSE METER 2022-08-31 11:57:00 Perry, [facility] POCT-GLUCOSE METER 2022-08-31 08:12:00 Perry, [facility] POCT-GLUCOSE METER 2022-08-31 06:18:00 [facility], [facility] BASIC METABOLIC PANEL 2022-08-31 04:22:00 Perry, [facility] CBC W/PLT COUNT & AUTO 2022-08-31 04:22:00 Perry, [facility] CBC W/PLT COUNT & AUTO 2022-08-31 04:22:00 Perry, [facility] POCT-GLUCOSE METER 2022-08-31 00:36:00 Perry, [facility] POCT-GLUCOSE METER 2022-08-30 17:18:00 Perry, [facility] POCT-GLUCOSE METER 2022-08-30 05:39:00 Jesus Toney [facility] nter BASIC METABOLIC PANEL 2022-08-30 03:24:00 Mary Reyes [facility] CBC W/PLT COUNT & AUTO 2022-08-30 03:24:00 Mary Reyes I [facility] CBC W/PLT COUNT & AUTO 2022-08-30 03:24:00 Mary Reyes I [facility] POCT-GLUCOSE METER 2022-08-30 00:04:00 Mickmichellealyssa Toney, [facility] Ce nter POCT-GLUCOSE METER 2022-08-29 18:07:00 Mickmichellealyssa Toney, [facility] Ce nter CT BRAIN WITHOUT IV 2022-08-29 12:28:40 [facility] Mary [facility] POCT-GLUCOSE METER 2022-08-29 11:36:00 Mickmichellealyssa Toney, [facility] Ce nter POCT-GLUCOSE METER 2022-08-29 05:51:00 Carla nate [facility] HIGH SENSITIVITY 2022-08-29 03:36:00 [facility] TROPONIN I [facility] MAGNESIUM 2022-08-29 03:36:00 [facility] PHOSPHORUS 2022-08-29 03:36:00 [facility] BASIC METABOLIC PANEL 2022-08-29 03:36:00 [facility] CBC W/PLT COUNT & AUTO 2022-08-29 03:36:00 [facility] Mary I [facility] CBC W/PLT COUNT & AUTO 2022-08-29 03:36:00 [facility] POCT-GLUCOSE METER 2022-08-28 18:33:00 Carla [facility] HIGH SENSITIVITY 2022-08-28 18:27:00 [facility] TROPONIN I [facility] BASIC METABOLIC PANEL 2022-08-28 16:56:00 [facility] CBC W/PLT COUNT & AUTO 2022-08-28 16:56:[address] CBC W/PLT COUNT & AUTO 2022-08-28 16:56:00 [facility] POCT-GLUCOSE METER 2022-08-28 14:24:00 AguirreRosario [facility] UT INSERT 2022-08-28 14:21:01 Jeremías Jarvis [facility] CATH,ART,PERCUT,[facility] RM HEPATIC FUNCTION PANEL 2022-08-28 14:18:00 [facility] PROTHROMBIN TIME/INR 2022-08-28 14:18:00 [facility] APTT 2022-08-28 14:18:00 [facility] HIGH SENSITIVITY 2022-08-28 14:18:00 [facility] TROPONIN [facility] ECG 12-LEAD 2022-08-28 14:07:01 [facility] ECG 12-LEAD 2022-08-28 14:07:01 Unknown, [facility] Doctor [facility] ECG 12-LEAD 2022-08-28 14:06:36 Unknown, Hl7 Doctor [facility] Plan of Care Planned Activity Planned Date Details Comments Source Future Scheduled 2023-08-[address] [facility] 00:[facility]00 [facility] r Screening (12+) [code = Tobacco Cessation Counseling and Screening (12+)] Future Scheduled 2022-11-20 Influenza Vaccine (#1) [facility] 00:00:00 [code = Influenza Medical Ce nter Vaccine (#1)] Future Scheduled 2022-03-[address] [facility] Test 00:00:00 (12+) [code = Medical Center DEPRESSION SCREENING (12+)] Future Scheduled 2022-03-22 FALLS RISK SCREENING [facility] Test 00:00:00 [code = FALLS RISK Medical C enter SCREENING] Future Scheduled 2022-03-22 Medicare IPPE (WELCOME [facility] 00:00:00 TO MEDICARE) [code = Medical Center Medicare IPPE (WELCOME TO MEDICARE)] Future Scheduled 2020-08-11 COVID-19 VACCINE (3 - [facility] 00:00:00 Booster for [facility] series) [code = COVID-19 VACCINE (3 - Booster for Moderna series)] Future Scheduled 1998 PNEUMOCOCCAL 65+ YRS [facility] Test 00:00:00 (1 - PCV) [code = Medical Ce nter PNEUMOCOCCAL 65+ YRS (1 - PCV)] Future Scheduled 1983-12-03 SHINGLES VACCINES ([address] [facility] Test 00:00:00 of 2) [code = SHINGLES Medic al Center VACCINES (1 of 2)] Future Scheduled 1952 DTAP/TDAP/TD VACCINES [facility] 00:00:00 (1 - Tdap) [code = Medical C enter DTAP/TDAP/TD VACCINES (1 - Tdap)] Encounters Start End Encounter Admission Attending Care Care Encounter Source Date/Time Date/Time Type Type Clinicians Facility Department ID 2022-09-01 Inpatient ER PERRY, LYNETTE [facility] [id number] [facility] 12:01:44 2022-08-31 Inpatient ER PERRY, LYNETTE [facility]H [facility] [id number] [facility] 17:33:41 2022-10-14 2022-10-14 Outpatient SFA [facility] [id number] [place] 10:23:35 10:23:35 [id number] F Ruffin 2022-10-08 2022-10-08 Outpatient SFA [facility] [id number] [place] 13:50:29 13:50:29 [id number] F Ruffin 2022-09-18 2022-09-18 Outpatient SFA [facility] [id number] [place] 09:04:50 09:04:50 [id number] F Ruffin 2022-08-28 2022-09-02 Inpatient ER PERRY, LYNETTE [facility] [id number] [facility] 11:31:00 10:59:00 2022-08-28 2022-09-02 [facility] Rosario Aguirre [facility] [id number] [facility] 11:31:00 10:59:00 Encounter [facility]irsten Renee [facility] 2022-09-01 2022-09-01 Inpatient ER LYNETTE AMADOR [facility] [id number] [facility] 03:13:20 23:59:00 2022-09-01 2022-09-01 [facility] Lynette Amador [facility] [id number] 02:20:00 23:59:00 Rosario Morales [facility] 2022-08-29 2022-08-29 Inpatient ER CARLA [facility] [id number] SLE 12:18:36 00:00:00 ROSARIO 2022-08-28 2022-08-28 Orders [facility] [id number] 00:00:00 00:00:00 Only [facility] 2022-08-28 2022-08-28 Travel [facility] [id number] [facility] 00[facility]00 00:00:00 [facility] Results Test Description Test Time Test Comments Results Result Comments Source POC-Glucose meter 2022-09-02 08:27:14 Test Item Value Reference Range Interpretation Comme nts POC-Glucose Meter (test code = 122 mg/dL 70-110 H : TESTED AT [facility] [address] [facility] 15[address]) [facility], [address]: Supervisor [place]/Techni shad ID = [id number] for ROHIT SUAZO [place] Lab Interpretation (test code = Abnormal 06995-7) [facility] [id number] 08:27:14 Test Item Value Reference Range Interpretation Comments POC-GLUCOSE METER 122 mg/dL 70-110 H : TESTED A T [facility] [address] (BEAKER) (test code = BERTNE R [facility], 1538) [address]: Supervisor [place]/Techni shad ID = [id number] for PERI UREÑA BASIC METABOLIC [id number] 05:17:53 Test Item Value Reference Range Interpretation Comments SODIUM (BEAKER) 139 meq/L 136-145 (test code = 381) POTASSIUM 4.0 meq/L 3.5-5.1 (BEAKER) (test code = 379) CHLORIDE (BEAKER) 106 meq/L 98-107 (test code = 382) CO2 (BEAKER) 24 meq/L 22-29 (test code = 355) BLOOD UREA 41 mg/dL 7-21 H NITROGEN (BEAKER) (test code = 354) CREATININE 1.74 mg/dL 0.57-1.25 H (BEAKER) (test code = 358) GLUCOSE RANDOM 112 mg/dL 70-105 H (BEAKER) (test code = 652) CALCIUM (BEAKER) 8.4 mg/dL 8.4-10.2 (test code = 697) EGFR (BEAKER) 28 Interpretatio n of eGFR (test code = mL/min/1.73 values Stage De scription 1092) sq m Result G1 Selina l or high >=90 G2 Mildly decreased 60-89 G3a Mildl y to moderately 45-5 9 G3b Moderately to s everely 30-44 G4 Severl y decreased 15-29 G5 Kidne y failure <15Reported eGF R is based on the CKD-EPI 2020 equation that d oes not use a race coefficientEsti mated GFR is not as accur ate as Creatinine Kiah praveen in predicting glom erular filtration rate . Estimated GFR is not appl icable for dialysis patien ts Supervisor [place] ID - FAM WPOCT-GLUCOSE [id number] 04:58:41 Test Item Value Reference Range Interpretation Comments POC-GLUCOSE METER 106 mg/dL 70-110 : TESTED A T [facility] [address] ([facility]) (test code = L[place], [id number]) [id number]: Supervisor [place]/Techni shad ID = [id number] for Ty Herman garcia CBC W/PLT COUNT & AUTO [id number] 04:46:48 Test Item Value Reference Range Interpretation Comments WHITE BLOOD CELL COUNT (BEAKER) 6.7 K/ L 3.5-10.5 (test code = 775) RED BLOOD CELL COUNT (BEAKER) 3.83 M/ L 3.93-5.22 L (test code = 761) HEMOGLOBIN (BEAKER) (test code = 10.1 GM/DL 11.2-15.7 L 410) HEMATOCRIT (BEAKER) (test code = 31.9 % 34.1-44.9 L 411) MEAN CORPUSCULAR VOLUME (BEAKER) 83 fL 79-95 (test code = 753) MEAN CORPUSCULAR HEMOGLOBIN 26.4 pg 25.6-32.2 (BEAKER) (test code = 751) MEAN CORPUSCULAR HEMOGLOBIN CONC 31.7 GM/DL 32.2-35.5 L (BEAKER) (test code = 752) RED CELL DISTRIBUTION WIDTH 15.6 % 11.7-14.4 H (BEAKER) (test code = 412) PLATELET COUNT (BEAKER) (test 192 K/CU MM 150-450 code = 756) MEAN PLATELET VOLUME (BEAKER) 11.3 fL 9.4-12.3 (test code = 754) NUCLEATED RED BLOOD CELLS 0 /100 WBC 0-0 (BEAKER) (test code = 413) NEUTROPHILS RELATIVE PERCENT 56 % (BEAKER) (test code = 429) LYMPHOCYTES RELATIVE PERCENT 31 % (BEAKER) (test code = 430) MONOCYTES RELATIVE PERCENT 9 % (BEAKER) (test code = 431) EOSINOPHILS RELATIVE PERCENT 2 % (BEAKER) (test code = 432) BASOPHILS RELATIVE PERCENT 1 % (BEAKER) (test code = 437) NEUTROPHILS ABSOLUTE COUNT 3.79 K/ L 1.56-6.13 (BEAKER) (test code = 670) LYMPHOCYTES ABSOLUTE COUNT 2.11 K/ L 1.18-3.74 (BEAKER) (test code = 414) MONOCYTES ABSOLUTE COUNT (BEAKER) 0.61 K/ L 0.24-0.36 H (test code = 415) EOSINOPHILS ABSOLUTE COUNT 0.16 K/ L 0.04-0.36 (BEAKER) (test code = 416) BASOPHILS ABSOLUTE COUNT (BEAKER) 0.04 K/ L 0.01-0.08 (test code = 417) IMMATURE GRANULOCYTES-RELATIVE 0.10 % 0.00-1.00 PERCENT (BEAKER) (test code = 2801) POCT-GLUCOSE [id number] 00:27:42 Test Item Value Reference Range Interpretation Comments POC-GLUCOSE METER 114 mg/dL 70-110 H : TESTED A T [facility] 67[address] (BEAKER) (test code = [place], 1538) [address]: Supervisor [place]/Techni shad ID = [id number] for Herman Johnson POCT-GLUCOSE [id number] 17:46:16 Test Item Value Reference Range Interpretation Comments POC-GLUCOSE METER 116 mg/dL 70-110 H : TESTED A T [facility] [address] (BEAKER) (test code = LIDIA Crane [facility], 1538) [address]: Supervisor [place]/Techni shad ID = [id number] for PERI UREÑA MR BRAIN WITH & WITHOUT IV [id number] 14:20:42 [facility] CRUZ KYLE : 1935 Sex: FMR BRAIN WITH & WITHOUT IV CONTRASTINDICATION: Stroke, follow upTechnique: MRI of the brain utilizing axialT1, T2, FLAIR, GRE, DWI,sagittal T1; and postgadolinium axial, sagittal, and coronal T1-weightedimages.COMPARISON: 08/29/22FINDINGS:Unchanged appearance of 1.2 x 1.8 cm intraparenchymal hematoma withinthe left basal ganglia with associated hemosiderin deposition.No restricted diffusion to suggest recent infarct. Remote infarcts ofthe cerebellar hemispheres and volume loss within the extreme capsulesbilaterally is redemonstrated.Scattered T2/FLAIR hyperintense foci within the periventricular andsubcortical white matter are nonspecific, however, statisticallyrepresent chronic microvascular ischemic keturah nges.No hydrocephalus.Orbits are within normal limits.Moderate mucosal thickening of the right maxillary sinus.Additional findings: None.IMPRESSION:1. Unchanged appearance of 1.2 x 1.8 cm intraparenchymal hematomawithin the left basal ganglia with associated hemosiderin deposition.2. 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 withinthe extreme capsules bilaterally is redemonstrated.POCT-GLUCOSE [id number] 08:18:49 Test Item Value Reference Range Interpretation Comments POC-GLUCOSE METER 101 mg/dL 70-110 : TESTED A T [facility] [address] ([place]) (test code = LIDIA Crane [place], 1538) [address]: Supervisor [place]/Techni shad ID = [id number] for PERI UREÑA BASIC METABOLIC [id number] 06:37:20 Test Item Value Reference Range Interpretation Comments SODIUM (BEAKER) 139 meq/L 136-145 (test code = 381) POTASSIUM 4.1 meq/L 3.5-5.1 (BEAKER) (test code = 379) CHLORIDE (BEAKER) 106 meq/L 98-107 (test code = 382) CO2 (BEAKER) 22 meq/L 22-29 (test code = 355) BLOOD UREA 26 mg/dL 7-21 H NITROGEN (BEAKER) (test code = 354) CREATININE 1.39 mg/dL 0.57-1.25 H (BEAKER) (test code = 358) GLUCOSE RANDOM 110 mg/dL 70-105 H (BEAKER) (test code = 652) CALCIUM (BEAKER) 8.5 mg/dL 8.4-10.2 (test code = 697) EGFR (BEAKER) 36 Interpretatio n of eGFR (test code = mL/min/1.73 values Stage De scription 1092) sq m Result G1 Selina l or high >=90 G2 Mildly decreased 60-89 G3a Mildl y to moderately 45-5 9 G3b Moderately to s everely 30-44 G4 Severl y decreased 15-29 G5 Kidney failure <15Reported eGF R is based on the CKD-EPI 2020 equation that d oes not use a race coefficientEsti mated GFR is not as accur ate as Creatinine Kiah morton in predicting glom erular filtration rate . Estimated GFR is not appl icable for dialysis patien ts Supervisor [place] ID - FAM WPOCT-GLUCOSE [id number] 06:20:57 Test Item Value Reference Range Interpretation Comments POC-GLUCOSE METER 100 mg/dL 70-110 : TESTED A T [facility] [address] (BEAKER) (test code ROSY [place], = 1538) [id number]: Supervisor [place]/Techni shad ID = [id number] for Jermaine Quiñones CTA [id number] 05:08:29 [facility]ame: CRUZ KYLE : 1935 Sex: FEXAM: CTA BRAIN, CTA CAROTIDINDICATION: Stroke, follow upTECHNIQUE: Helical CT of the head without IV contrast.Postcontrast CTAof the head and CTA of the neck with IV contrast. Multiplanarreconstructed images. 3D reconstructions with MIP images were performed.This exam was performed according to our departmental dose- optimizationprogram, which includes automated exposure control, adjustment of the mAand/or kV according to patient size and/or use of iterativereconstruction technique.COMPARISON: 08/29/2022.FINDINGS:CT HEAD: Parenchyma: No significant change in size or mass effect of theparenchymal hematoma in the left thalamocapsular region. Nointraventricular extension. No evidence of acute infarction. 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 Patchy and confluentareas of hypoattenuation are present in the cerebral white matter thatare nonspecific but compatible with moderate chronic microvascularischemic changes. Extra-axial Collection: NoneVentricular System: No hydrocephalus.Paranasal Sinuses: Predominantly clearTympanomastoid Cavities: NormalOther: NoneCTA HEAD: Anterior Circulation:Right intracranial internal carotid artery (ICA): Atheroscleroticchanges without significant narrowing. Righ t anterior cerebral artery (ZACK): NormalRight middle cerebral artery (MCA): Moderate focal stenosis of theproximal M1 segment with patency distallyLeft intracranial internal carotid artery (ICA): Moderateatherosclerosis of the cavernous and supraclinoid segments with patencydistally.Left anterior cerebral artery (ZACK): NormalLeft middle cerebral artery (MCA): NormalAnterior communicating artery (AComm): PresentPosterior communicating arteries (PComm): Not well-visualizedbilaterally.Posterior Circulation:Right posterior cerebral artery (MACHINE PRECISION ETCHER): Moderate stenosis of the Y2vbazkla with patency distally.Left posterior cerebral artery (MACHINE PRECISION ETCHER): NormalRight vertebral artery (VA): NormalLeft vertebral artery (VA): NormalBasilar artery (BA): NormalOther: NormalDural Venous Sinuses: NormalCTA NECK:Aortic arch and proximal great vessels: Atherosclerotic changes withoutsignificant narrowing. Right carotid arterial system: Mild (<50%) internal carotid arterynarrowing at the carotid bulb secondary to atherosclerosis.Left carotid arterial system: Minimal atherosclerosis without luminalnarrowing.Right vertebral artery: NormalLeft vertebral artery: Minimal atherosclerosis at the origin withpatency distally.Where applicable, evaluation of internal carotid artery (ICA) stenosiswas performed using NASCET-like criteria, where the site of greateststenosis is compared to the diameter of the ICA distal to the stenosisat a point where the ICA singh become parallel.Neck Soft Tissues: UnremarkableOsseous Structures: No acute osseous abnormality.Included Lung Apices: UnremarkableIMPRESSION:1. No significant change inleft thalamocapsular intracranialhematoma.2. No vascular etiology identified for hemorrhage on CTA of the headand neck.3. No large vessel cut off on CTA of the head. Moderate stenosis ofthe right M1 segment, left cavernous and supraclinoid segments, andright P2 segment with patency distally.4. No hemodynamically significant stenosis on CTA of the neck.CTA [id number] 05:08:29 [facility]ame: CRUZ KYLE : 1935 Sex: FEXAM: CTA BRAIN, CTA CAROTIDINDICATION: Stroke, follow upTECHNIQUE: Helical CT of the head without IV contrast.Postcontrast CTAof the head and CTA of the neck with IV contrast. Multiplanarreconstructed images. 3D reconstructions with MIP images were performed.This exam was performed according to our departmental dose- optimizationprogram, which includes automated exposure control, adjustment of the mAand/or kV according to patient size and/or use of iterativereconstruction technique.COMPARISON: 08/29/2022.FINDINGS:CT HEAD: Parenchyma: No significant change in size or mass effect of theparenchymal hematoma in the left thalamocapsular region. Nointraventricular extension. No evidence of acute infarction. 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 Patchy and confluentareas of hypoattenuation are present in the cerebral white matter thatare nonspecific but compatible with moderate chronic microvascularischemic changes. Extra-axial Collection: NoneVentricular System: No hydrocephalus.Paranasal Sinuses: Predominantly clearTympanomastoid Cavities: NormalOther: NoneCTA HEAD: Anterior Circulation:Right intracranial internal carotid artery (ICA): Atheroscleroticchanges without significant narrowing. Righ t anterior cerebral artery (ZACK): NormalRight middle cerebral artery (MCA): Moderate focal stenosis of theproximal M1 segment with patency distallyLeft intracranial internal carotid artery (ICA): Moderateatherosclerosis of the cavernous and supraclinoid segments with patencydistally.Left anterior cerebral artery (ZACK): NormalLeft middle cerebral artery (MCA): NormalAnterior communicating artery (AComm): PresentPosterior communicating arteries (PComm): Not well-visualizedbilaterally.Posterior Circulation:Right posterior cerebral artery (MACHINE PRECISION ETCHER): Moderate stenosis of the A0zwneigc with patency distally.Left posterior cerebral artery (MACHINE PRECISION ETCHER): NormalRight vertebral artery (VA): NormalLeft vertebral artery (VA): NormalBasilar artery (BA): NormalOther: NormalDural Venous Sinuses: NormalCTA NECK:Aortic arch and proximal great vessels: Atherosclerotic changes withoutsignificant narrowing. Right carotid arterial system: Mild (<50%) internal carotid arterynarrowing at the carotid bulb secondary to atherosclerosis.Left carotid arterial system: Minimal atherosclerosis without luminalnarrowing.Right vertebral artery: NormalLeft vertebral artery: Minimal atherosclerosis at the origin withpatency distally.Where applicable, evaluation of internal carotid artery (ICA) stenosiswas performed using NASCET-like criteria, where the site of greateststenosis is compared to the diameter of the ICA distal to the stenosisat a point where the ICA singh become parallel.Neck Soft Tissues: UnremarkableOsseous Structures: No acute osseous abnormality.Included Lung Apices: UnremarkableIMPRESSION:1. No significant change inleft thalamocapsular intracranialhematoma.2. No vascular etiology identified for hemorrhage on CTA of the headand neck.3. No large vessel cut off on CTA of the head. Moderate stenosis ofthe right M1 segment, left cavernous and supraclinoid segments, andright P2 segment with patency distally.4. No hemodynamically significant stenosis on CTA of the neck.CBC W/PLT COUNT & AUTO [id number] 04:55:51 Test Item Value Reference Range Interpretation Comments WHITE BLOOD CELL COUNT (BEAKER) 6.5 K/ L 3.5-10.5 (test code = 775) RED BLOOD CELL COUNT (BEAKER) 4.46 M/ L 3.93-5.22 (test code = 761) HEMOGLOBIN (BEAKER) (test code = 12.1 GM/DL 11.2-15.7 410) HEMATOCRIT (BEAKER) (test code = 38.1 % 34.1-44.9 411) MEAN CORPUSCULAR VOLUME (BEAKER) 85 fL 79-95 (test code = 753) MEAN CORPUSCULAR HEMOGLOBIN 27.1 pg 25.6-32.2 (BEAKER) (test code = 751) MEAN CORPUSCULAR HEMOGLOBIN CONC 31.8 GM/DL 32.2-35.5 L (BEAKER) (test code = 752) RED CELL DISTRIBUTION WIDTH 15.1 % 11.7-14.4 H (BEAKER) (test code = 412) PLATELET COUNT (BEAKER) (test 196 K/CU MM 150-450 code = 756) MEAN PLATELET VOLUME (BEAKER) 11.0 fL 9.4-12.3 (test code = 754) NUCLEATED RED BLOOD CELLS 0 /100 WBC 0-0 (BEAKER) (test code = 413) NEUTROPHILS RELATIVE PERCENT 60 % (BEAKER) (test code = 429) LYMPHOCYTES RELATIVE PERCENT 28 % (BEAKER) (test code = 430) MONOCYTES RELATIVE PERCENT 9 % (BEAKER) (test code = 431) EOSINOPHILS RELATIVE PERCENT 3 % (BEAKER) (test code = 432) BASOPHILS RELATIVE PERCENT 1 % (BEAKER) (test code = 437) NEUTROPHILS ABSOLUTE COUNT 3.84 K/ L 1.56-6.13 (BEAKER) (test code = 670) LYMPHOCYTES ABSOLUTE COUNT 1.79 K/ L 1.18-3.74 (BEAKER) (test code = 414) MONOCYTES ABSOLUTE COUNT (BEAKER) 0.60 K/ L 0.24-0.36 H (test code = 415) EOSINOPHILS ABSOLUTE COUNT 0.16 K/ L 0.04-0.36 (BEAKER) (test code = 416) BASOPHILS ABSOLUTE COUNT (BEAKER) 0.04 K/ L 0.01-0.08 (test code = 417) IMMATURE GRANULOCYTES-RELATIVE 0.30 % 0.00-1.00 PERCENT (BEAKER) (test code = 2801) POCT-GLUCOSE [id number] 00:29:31 Test Item Value Reference Range Interpretation Comments POC-GLUCOSE METER 105 mg/dL 70-110 : TESTED A T [facility] 6720 (BEAKER) (test code [facility], = 1538) 72794: Supervisor [place]/Techni shad ID = [id number] for Jermaine Quiñones POCT-GLUCOSE [id number] 12:10:56 Test Item Value Reference Range Interpretation Comments POC-GLUCOSE METER 144 mg/dL 70-110 H : TESTED A T [facility] 6720 (BEAKER) (test code = [facility], 1538) 96789: Supervisor [place]/Techni shad ID = [id number] for YOLANDA ZHAOLarry PERI POCT-GLUCOSE [id number] 08:31:08 Test Item Value Reference Range Interpretation Comments POC-GLUCOSE METER 108 mg/dL 70-110 : TESTED A T [facility] 6720 (BEAKER) (test code = [facility], 1538) 92188: Supervisor [place]/Techni shad ID = [id number] for YOLANDA GAINESTIMOTHYLarry PERI BASIC METABOLIC [id number] 08:15:21 Test Item Value Reference Range Interpretation Comments SODIUM (BEAKER) 139 meq/L 136-145 (test code = 381) POTASSIUM 4.4 meq/L 3.5-5.1 Specimen slight ly (BEAKER) (test hemolyzed code = 379) CHLORIDE (BEAKER) 108 meq/L 98-107 H (test code = 382) CO2 (BEAKER) 18 meq/L 22-29 L (test code = 355) BLOOD UREA 20 mg/dL 7-21 NITROGEN (BEAKER) (test code = 354) CREATININE 1.25 mg/dL 0.57-1.25 Specimen slight ly (BEAKER) (test hemolyzed code = 358) GLUCOSE RANDOM 110 mg/dL 70-105 H (BEAKER) (test code = 652) CALCIUM (BEAKER) 8.9 mg/dL 8.4-10.2 (test code = 697) EGFR (BEAKER) 41 Interpretatio n of eGFR (test code = mL/min/1.73 values Stage De scription 1092) sq m Result G1 Selina l or high >=90 G2 Mildly decreased 60-89 G3a Mildl y to moderately 45-5 9 G3b Moderately to s everely 30-44 G4 Severl y decreased 15-29 G5 Kidney failure <15Reported eGF R is based on the CKD-EPI 2020 equation that d oes not use a race coefficientEsti mated GFR is not as accur ate as Creatinine Kiah praveen in predicting glom erular filtration rate . Estimated GFR is not appl icable for dialysis patien ts Supervisor [place] ID - mmCBC W/PLT COUNT & AUTO [id number] 07:06:55 Test Item Value Reference Range Interpretation Comments WHITE BLOOD CELL COUNT 6.3 K/ L 3.5-10.5 (BEAKER) (test code = 775) RED BLOOD CELL COUNT 4.64 M/ L 3.93-5.22 (BEAKER) (test code = 761) HEMOGLOBIN (BEAKER) 12.5 GM/DL 11.2-15.7 (test code = 410) HEMATOCRIT (BEAKER) 40.6 % 34.1-44.9 (test code = 411) MEAN CORPUSCULAR 88 fL 79-95 Discordant results VOLUME (BEAKER) (test compar ed to previous code = 753) results; clinic al correlation required. MEAN CORPUSCULAR 26.9 pg 25.6-32.2 HEMOGLOBIN (BEAKER) (test code = 751) MEAN CORPUSCULAR 30.8 GM/DL 32.2-35.5 L HEMOGLOBIN CONC (BEAKER) (test code = 752) RED CELL DISTRIBUTION 16.1 % 11.7-14.4 H WIDTH (BEAKER) (test code = 412) PLATELET COUNT 153 K/CU MM 150-450 (BEAKER) (test code = 756) MEAN PLATELET VOLUME 11.7 fL 9.4-12.3 (BEAKER) (test code = 754) NUCLEATED RED BLOOD 0 /100 WBC 0-0 CELLS (BEAKER) (test code = 413) NEUTROPHILS RELATIVE 59 % PERCENT (BEAKER) (test code = 429) LYMPHOCYTES RELATIVE 29 % PERCENT (BEAKER) (test code = 430) MONOCYTES RELATIVE 9 % PERCENT (BEAKER) (test code = 431) EOSINOPHILS RELATIVE 2 % PERCENT (BEAKER) (test code = 432) BASOPHILS RELATIVE 1 % PERCENT (BEAKER) (test code = 437) NEUTROPHILS ABSOLUTE 3.66 K/ L 1.56-6.13 COUNT (BEAKER) (test code = 670) LYMPHOCYTES ABSOLUTE 1.82 K/ L 1.18-3.74 COUNT (BEAKER) (test code = 414) MONOCYTES ABSOLUTE 0.54 K/ L 0.24-0.36 H COUNT (BEAKER) (test code = 415) EOSINOPHILS ABSOLUTE 0.10 K/ L 0.04-0.36 COUNT (BEAKER) (test code = 416) BASOPHILS ABSOLUTE 0.05 K/ L 0.01-0.08 COUNT (BEAKER) (test code = 417) IMMATURE 1.30 % 0.00-1.00 H GRANULOCYTES-RELATIVE PERCENT (BEAKER) (test code = 2801) POCT-GLUCOSE [id number] 06:29:48 Test Item Value Reference Range Interpretation Comments POC-GLUCOSE METER 116 mg/dL 70-110 H : TESTED A T [facility] 6720 (BEAKER) (test code = [facility], 153) [id number]: Supervisor [place]/Techni shad ID = [id number] for HORTENCIA WHITEGISEL TONG POCT-GLUCOSE [id number] 00:48:26 Test Item Value Reference Range Interpretation Comments POC-GLUCOSE METER 124 mg/dL 70-110 H : TESTED A T [facility] 6720 (BEAKER) (test code = [facility], 1538) 42175: Supervisor [place]/Techni shad ID = [id number] for HORTENCIA DANIELITO JAMEYTTA POCT-GLUCOSE [id number] 17:30:51 Test Item Value Reference Range Interpretation Comments POC-GLUCOSE METER 135 mg/dL 70-110 H : TESTED A T [facility] 6720 (BEAKER) (test code = [facility], 1538) 98869: Supervisor [place]/Techni shad ID = [id number] for Elvia Davila POCT-GLUCOSE [id number] 05:50:46 Test Item Value Reference Range Interpretation Comments POC-GLUCOSE METER 147 mg/dL 70-110 H : [facility]ED [facility] (BEAKER) [facility] = 1538) 11763: Supervisor [place]/Techni shad ID = [id number] for Jermaine Quiñones BASIC METABOLIC [id number] 05:04:55 Test Item Value Reference Range Interpretation Comments SODIUM (BEAKER) 142 meq/L 136-145 (test code = 381) POTASSIUM 4.0 meq/L 3.5-5.1 (BEAKER) (test code = 379) CHLORIDE (BEAKER) 109 meq/L 98-107 H (test code = 382) CO2 (BEAKER) 25 meq/L 22-29 (test code = 355) BLOOD UREA 18 mg/dL 7-21 NITROGEN (BEAKER) (test code = 354) CREATININE 1.35 mg/dL 0.57-1.25 H (BEAKER) (test code = 358) GLUCOSE RANDOM 129 mg/dL 70-105 H (BEAKER) (test code = 652) CALCIUM (BEAKER) 8.7 mg/dL 8.4-10.2 (test code = 697) EGFR (BEAKER) 38 Interpretatio n of eGFR (test code = mL/min/1.73 values Stage De scription 1092) sq m Result G1 Selina l or high >=90 G2 Mildly decreased 60-89 G3a Mildl y to moderately 45-5 9 G3b Moderately to s everely 30-44 G4 Severl y decreased 15-29 G5 Kidney failure <15Reported eGF R is based on the CKD-EPI 2021 equation that d oes not use a race coefficientEsti mated GFR is not as accur ate as Creatinine Kiah morton in predicting glom erular filtration rate . Estimated GFR is not appl icable for dialysis patien ts Supervisor [place] ID - MMCBC W/PLT COUNT & AUTO [id number] 04:36:37 Test Item Value Reference Range Interpretation Comments WHITE BLOOD CELL COUNT (BEAKER) 8.0 K/ L 3.5-10.5 (test code = 775) RED BLOOD CELL COUNT (BEAKER) 4.54 M/ L 3.93-5.22 (test code = 761) HEMOGLOBIN (BEAKER) (test code = 12.3 GM/DL 11.2-15.7 410) HEMATOCRIT (BEAKER) (test code = 37.5 % 34.1-44.9 411) MEAN CORPUSCULAR VOLUME (BEAKER) 83 fL 79-95 (test code = 753) MEAN CORPUSCULAR HEMOGLOBIN 27.1 pg 25.6-32.2 (BEAKER) (test code = 751) MEAN CORPUSCULAR HEMOGLOBIN CONC 32.8 GM/DL 32.2-35.5 (BEAKER) (test code = 752) RED CELL DISTRIBUTION WIDTH 15.3 % 11.7-14.4 H (BEAKER) (test code = 412) PLATELET COUNT (BEAKER) (test 223 K/CU MM 150-450 code = 756) MEAN PLATELET VOLUME (BEAKER) 11.1 fL 9.4-12.3 (test code = 754) NUCLEATED RED BLOOD CELLS 0 /100 WBC 0-0 (BEAKER) (test code = 413) NEUTROPHILS RELATIVE PERCENT 74 % (BEAKER) (test code = 429) LYMPHOCYTES RELATIVE PERCENT 17 % (BEAKER) (test code = 430) MONOCYTES RELATIVE PERCENT 6 % (BEAKER) (test code = 431) EOSINOPHILS RELATIVE PERCENT 2 % (BEAKER) (test code = 432) BASOPHILS RELATIVE PERCENT 1 % (BEAKER) (test code = 437) NEUTROPHILS ABSOLUTE COUNT 5.89 K/ L 1.56-6.13 (BEAKER) (test code = 670) LYMPHOCYTES ABSOLUTE COUNT 1.35 K/ L 1.18-3.74 (BEAKER) (test code = 414) MONOCYTES ABSOLUTE COUNT (BEAKER) 0.48 K/ L 0.24-0.36 H (test code = 415) EOSINOPHILS ABSOLUTE COUNT 0.18 K/ L 0.04-0.36 (BEAKER) (test code = 416) BASOPHILS ABSOLUTE COUNT (BEAKER) 0.04 K/ L 0.01-0.08 (test code = 417) IMMATURE GRANULOCYTES-RELATIVE 0.40 % 0.00-1.00 PERCENT (BEAKER) (test code = 2801) POCT-GLUCOSE [id number] 00:15:58 Test Item Value Reference Range Interpretation Comments POC-GLUCOSE METER 129 mg/dL 70-110 H : TESTED A T [facility] 6720 (RIZWANA) (test code [facility], = 1538) 35087: Supervisor [place]/Techni shad ID = [id number] for Jermaine Quiñones POCT-GLUCOSE [id number] 18:19:10 Test Item Value Reference Range Interpretation Comments POC-GLUCOSE METER 141 mg/dL 70-110 H : Notified RN/MD: (RIZWANA) (test code = TESTED AT [facility] 6720 1538) [facility], [address]: Supervisor [place]/Techni shad ID = [id number] for VALERIE URIAS CT BRAIN WITHOUT IV [id number] 13:47:49 [facility] CALIF[facility]NIAName: CRUZ KYLE : 1935 Sex: FCT BRAIN WITHOUT IV CONTRASTCLINICAL INDICATION: Unlisted Reason for Exam, follow-up intracranialhemorrhageCOMPARISON: NoneTECHNIQUE: Noncontrast axial CT imaging of the brain and skull. 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 Hypoattenuation within theperiventricular and subcortical white matter is present, nonspecific byimaging, however, statistically representing chronic microvascularchanges in this age group. Diffuse senescent parenchymal volume loss.No hydrocephalus.Atherosclerotic calcification of the intracranial internal carotid andvertebral arteries. Orbits are within normal limits.No obstructive paranasal sinus disease.IMPRESSION:1. 2.3 x 1.9 x 1.2 cm intraparenchymal hematoma in the leftthalamocapsular region. No prior exams were available for review at thetime of this dictation.2. Chronic small volume infarcts in the bilateral cerebellarhemispheresIf there is persistent clinical concern for intracranial pathology, Andrei be considered for further characterization.POCT-GLUCOSE [id number] 11:52:01 Test Item Value Reference Range Interpretation Comments POC-GLUCOSE METER 109 mg/dL 70-110 : TESTED A T [facility] 6720 (BEAKER) (test code = [facility], 1538) 84804: Supervisor [place]/Techni shad ID = [id number] for VALERIE URIAS POCT-GLUCOSE [id number] 06:03:17 Test Item Value Reference Range Interpretation Comments POC-GLUCOSE METER 108 mg/dL 70-110 : TESTED A T [facility] 6720 (BEAKER) (test code = [facility], 1538) 87762: Supervisor [place]/Techni shad ID = [id number] for Wes Suero HIGH SENSITIVITY TROPONIN [id number] 04:24:03 Test Item Value Reference Range Interpretation Comments HIGH SENSITIVITY TROPONIN I (test 50 pg/ml <=17 H code = 2004606) Supervisor [place] ID - MMThe INSTRUMENTATION TECHNICIAN STAT High Sensitivity Troponin-I results should be used in conjunctionwith other diagnostic information such as ECG, clinical observations and information, and patient symptoms to aid in the diagnosis of CA.BASIC METABOLIC [id number] 04:20:39 Test Item Value Reference Range Interpretation Comments SODIUM (BEAKER) 145 meq/L 136-145 (test code = 381) POTASSIUM 3.9 meq/L 3.5-5.1 (BEAKER) (test code = 379) CHLORIDE (BEAKER) 112 meq/L 98-107 H (test code = 382) CO2 (BEAKER) 24 meq/L 22-29 (test code = 355) BLOOD UREA 16 mg/dL 7-21 NITROGEN (BEAKER) (test code = 354) CREATININE 1.16 mg/dL 0.57-1.25 (BEAKER) (test code = 358) GLUCOSE RANDOM 125 mg/dL 70-105 H (BEAKER) (test code = 652) CALCIUM (BEAKER) 8.3 mg/dL 8.4-10.2 L (test code = 697) EGFR (BEAKER) 45 Interpretatio n of eGFR (test code = mL/min/1.73 values Stage De scription 1092) sq m Result G1 Selina l or high >=90 G2 Mildly decreased 60-89 G3a Mildl y to moderately 45-5 9 G3b Moderately to s everely 30-44 G4 Severl y decreased 15-29 G5 Kidne y failure <15Reported eGF R is based on the CKD-EPI 2020 equation that d oes not use a race coefficientEsti mated GFR is not as accur ate as Creatinine Kiah praveen in predicting glom erular filtration rate . Estimated GFR is not appl icable for dialysis patien ts Supervisor [place] ID - [id number] 04:20:39 Test Item Value Reference Range Interpretation Comments MAGNESIUM (BEAKER) (test code = 2.1 mg/dL 1.6-2.6 627) Supervisor [place] ID - [id number] 04:20:39 Test Item Value Reference Range Interpretation Comments PHOSPHORUS (BEAKER) (test code = 4.2 mg/dL 2.3-4.7 604) Supervisor [place] ID - MMCBC W/PLT COUNT & AUTO [id number] 04:03:40 Test Item Value Reference Range Interpretation Comments WHITE BLOOD CELL COUNT (BEAKER) 6.9 K/ L 3.5-10.5 (test code = 775) RED BLOOD CELL COUNT (BEAKER) 3.99 M/ L 3.93-5.22 (test code = 761) HEMOGLOBIN (BEAKER) (test code = 10.7 GM/DL 11.2-15.7 L 410) HEMATOCRIT (BEAKER) (test code = 33.5 % 34.1-44.9 L 411) MEAN CORPUSCULAR VOLUME (BEAKER) 84 fL 79-95 (test code = 753) MEAN CORPUSCULAR HEMOGLOBIN 26.8 pg 25.6-32.2 (BEAKER) (test code = 751) MEAN CORPUSCULAR HEMOGLOBIN CONC 31.9 GM/DL 32.2-35.5 L (BEAKER) (test code = 752) RED CELL DISTRIBUTION WIDTH 14.9 % 11.7-14.4 H (BEAKER) (test code = 412) PLATELET COUNT (BEAKER) (test 210 K/CU MM 150-450 code = 756) MEAN PLATELET VOLUME (BEAKER) 11.2 fL 9.4-12.3 (test code = 754) NUCLEATED RED BLOOD CELLS 0 /100 WBC 0-0 (BEAKER) (test code = 413) NEUTROPHILS RELATIVE PERCENT 65 % (BEAKER) (test code = 429) LYMPHOCYTES RELATIVE PERCENT 23 % (BEAKER) (test code = 430) MONOCYTES RELATIVE PERCENT 8 % (BEAKER) (test code = 431) EOSINOPHILS RELATIVE PERCENT 4 % (BEAKER) (test code = 432) BASOPHILS RELATIVE PERCENT 1 % (BEAKER) (test code = 437) NEUTROPHILS ABSOLUTE COUNT 4.41 K/ L 1.56-6.13 (BEAKER) (test code = 670) LYMPHOCYTES ABSOLUTE COUNT 1.57 K/ L 1.18-3.74 (BEAKER) (test code = 414) MONOCYTES ABSOLUTE COUNT (BEAKER) 0.53 K/ L 0.24-0.36 H (test code = 415) EOSINOPHILS ABSOLUTE COUNT 0.27 K/ L 0.04-0.36 (BEAKER) (test code = 416) BASOPHILS ABSOLUTE COUNT (BEAKER) 0.05 K/ L 0.01-0.08 (test code = 417) IMMATURE GRANULOCYTES-RELATIVE 0.30 % 0.00-1.00 PERCENT (BEAKER) (test code = 2801) HIGH SENSITIVITY TROPONIN [id number] 18:57:01 Test Item Value Reference Range Interpretation Comments HIGH SENSITIVITY TROPONIN I (test 62 pg/ml <=17 H code = 8958610) Supervisor [place] ID - ADMINThe INSTRUMENTATION TECHNICIAN STAT High Sensitivity Troponin-I results should be used in conjunction with other diagnostic information such as ECG, clinical observations and information, and patientsymptoms to aid in the diagnosis of CA. POCT-GLUCOSE [id number] 18:45:08 Test Item Value Reference Range Interpretation Comments POC-GLUCOSE METER 126 mg/dL 70-110 H : TESTED A T [facility] 6720 (BEAKER) (test code = [facility] Royce [place], 1538) 99676: Supervisor [place]/Techni shad ID = [id number] for Ph am, Sharmin (Kendra) BASIC METABOLIC [id number] 17:22:03 Test Item Value Reference Range Interpretation Comments SODIUM (BEAKER) 145 meq/L 136-145 (test code = 381) POTASSIUM 3.7 meq/L 3.5-5.1 (BEAKER) (test code = 379) CHLORIDE (BEAKER) 112 meq/L 98-107 H (test code = 382) CO2 (BEAKER) 23 meq/L 22-29 (test code = 355) BLOOD UREA 16 mg/dL 7-21 NITROGEN (BEAKER) (test code = 354) CREATININE 1.22 mg/dL 0.57-1.25 (BEAKER) (test code = 358) GLUCOSE RANDOM 165 mg/dL 70-105 H (BEAKER) (test code = 652) CALCIUM (BEAKER) 8.3 mg/dL 8.4-10.2 L (test code = 697) EGFR (BEAKER) 43 Interpretatio n of eGFR (test code = mL/min/1.73 values Stage De scription 1092) sq m Result G1 Selina l or high >=90 G2 Mildly decreased 60-89 G3a Mildl y to moderately 45-5 9 G3b Moderately to s everely 30-44 G4 Severl y decreased 15-29 G5 Kidney failure <15Reported eGF R is based on the CKD-EPI 2020 equation that d oes not use a race coefficientEsti mated GFR is not as accur ate as Creatinine Kiah morton in predicting glom erular filtration rate . Estimated GFR is not appl icable for dialysis patien ts Supervisor [place] ID - ADMINCBC W/PLT COUNT & AUTO [id number] 17:07:51 Test Item Value Reference Range Interpretation Comments WHITE BLOOD CELL COUNT (BEAKER) 8.6 K/ L 3.5-10.5 (test code = 775) RED BLOOD CELL COUNT (BEAKER) 4.43 M/ L 3.93-5.22 (test code = 761) HEMOGLOBIN (BEAKER) (test code = 11.9 GM/DL 11.2-15.7 410) HEMATOCRIT (BEAKER) (test code = 37.3 % 34.1-44.9 411) MEAN CORPUSCULAR VOLUME (BEAKER) 84 fL 79-95 (test code = 753) MEAN CORPUSCULAR HEMOGLOBIN 26.9 pg 25.6-32.2 (BEAKER) (test code = 751) MEAN CORPUSCULAR HEMOGLOBIN CONC 31.9 GM/DL 32.2-35.5 L (BEAKER) (test code = 752) RED CELL DISTRIBUTION WIDTH 14.9 % 11.7-14.4 H (BEAKER) (test code = 412) PLATELET COUNT (BEAKER) (test 222 K/CU MM 150-450 code = 756) MEAN PLATELET VOLUME (BEAKER) 10.4 fL 9.4-12.3 (test code = 754) NUCLEATED RED BLOOD CELLS 0 /100 WBC 0-0 (BEAKER) (test code = 413) NEUTROPHILS RELATIVE PERCENT 63 % (BEAKER) (test code = 429) LYMPHOCYTES RELATIVE PERCENT 25 % (BEAKER) (test code = 430) MONOCYTES RELATIVE PERCENT 8 % (BEAKER) (test code = 431) EOSINOPHILS RELATIVE PERCENT 4 % (BEAKER) (test code = 432) BASOPHILS RELATIVE PERCENT 1 % (BEAKER) (test code = 437) NEUTROPHILS ABSOLUTE COUNT 5.40 K/ L 1.56-6.13 (BEAKER) (test code = 670) LYMPHOCYTES ABSOLUTE COUNT 2.14 K/ L 1.18-3.74 (BEAKER) (test code = 414) MONOCYTES ABSOLUTE COUNT (BEAKER) 0.65 K/ L 0.24-0.36 H (test code = 415) EOSINOPHILS ABSOLUTE COUNT 0.30 K/ L 0.04-0.36 (BEAKER) (test code = 416) BASOPHILS ABSOLUTE COUNT (BEAKER) 0.05 K/ L 0.01-0.08 (test code = 417) IMMATURE GRANULOCYTES-RELATIVE 0.20 % 0.00-1.00 PERCENT (BEAKER) (test code = 2801) HIGH SENSITIVITY TROPONIN [id number] 14:52:16 Test Item Value Reference Range Interpretation Comments HIGH SENSITIVITY TROPONIN I (test 65 pg/ml <=17 H code = 6137117) Supervisor [place] ID - ADMINThe INSTRUMENTATION TECHNICIAN STAT High Sensitivity Troponin-I results should be used in conjunction with other diagnostic information such as ECG, clinical observations and information, and patientsymptoms to aid in the diagnosis of CA. HEPATIC FUNCTION [id number] 14:47:09 Test Item Value Reference Range Interpretation Comments TOTAL PROTEIN (BEAKER) (test code = 6.5 gm/dL 6.0-8.3 770) ALBUMIN (BEAKER) (test code = 1145) 3.4 g/dL 3.5-5.0 L BILIRUBIN TOTAL (BEAKER) (test code 0.2 mg/dL 0.2-1.2 = 377) BILIRUBIN DIRECT (BEAKER) (test 0.1 mg/dL 0.1-0.5 code = 706) ALKALINE PHOSPHATASE (BEAKER) (test 83 U/L 40-150 code = 346) AST (SGOT) (BEAKER) (test code = 15 U/L 5-34 353) ALT (SGPT) (BEAKER) (test code = 15 U/L 6-55 347) Supervisor [place] ID - ADMINPOCT-GLUCOSE [id number] 14:38:03 Test Item Value Reference Range Interpretation Comments POC-GLUCOSE METER 123 mg/dL 70-110 H : TESTED A T [facility] 6720 (RIZWANA) (test code = [facility] ID, 1538) [address]: Supervisor [place]/Techni shad ID = [id number] for Ph am, Sharmin (Kendra) [id number] 14:34:20 Test Item Value Reference Range Interpretation Comments PARTIAL THROMBOPLASTIN TIME 27.6 seconds 22.5-36.0 (BEAKER) (test code = 760) PROTHROMBIN TIME/[id number] 14:33:40 Test Item Value Reference Range Interpretation Comments PROTIME (BEAKER) (test code = 14.1 seconds 11.9-14.2 759) INR (BEAKER) (test code = 370) 1.16 <=5.90 RECOMMENDED COUMADIN/WARFARIN INR THERAPY RANGESSTANDARD DOSE: 2.0 - 3.0 Includes: PROPHYLAXIS for venous thrombosis, systemic embolization; TREATMENT for venous thrombosis and/or pulmonary embolus.HIGH RISK: Target INR is 2.5-3.5 for patients with mechanical heart valves.
[2022-12-08 18:30] LABS: Absolute Lymphocytes (CBC) 1.6 K/uL (0.7-4.9); Hematocrit 36.8 % (36.0-45.0); MCV 86.2 fL (80-100); MPV 8.2 fL (7.6-11.3); Platelets 210 thou/uL (152-406); RBC Red Blood Cell Count 4.27 M/uL (3.86-4.86)
[2022-12-08 18:35] LABS: Specific Gravity 1.019 (1.005-1.030); Urine Bacteria <20 /HPF (<20); Urine Bilirubin NEGATIVE (Negative); Urine Blood Negative (Negative); Urine Clarity Turbid (Clear); Urine Color Yellow (Yellow); Urine Crystals Unidentified Few /HPF (None Seen); Urine Glucose NEGATIVE (Negative); Urine Mucus Slight /HPF (None Seen); Urine Protein 1+ (Negative); Urine RBC <5 /HPF (None Seen); Urine Urobilinogen Normal (Normal); Urine WBC Clump Rare /HPF (None Seen); Urine pH 5.5 (5.0-7.0)
[2022-12-08 18:37] LABS: Protime INR 0.92
[2022-12-08 18:50] LABS: Potassium 4.4 mEq/L (3.5-5.1); Troponin High Sensitivity 26.2 pg/mL (<58.9)
--- NOTE | 2022-12-08 19:07 | RAD REPORT ---
EXAM DESCRIPTION: RAD - Chest Single View - 12/08/2022 6:37 pm CLINICAL HISTORY: confusion Chest pain. COMPARISON: Chest Single View dated 08/28/2022; Chest Single View dated 07/12/2021 FINDINGS: Portable technique limits examination quality. 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 The heart is normal in size. No displaced fractures. IMPRESSION: Mild COPD.
--- NOTE | 2022-12-08 19:09 | RAD REPORT ---
EXAM DESCRIPTION: CT - Head Brain Wo Cont - 12/08/2022 6:58 pm CLINICAL HISTORY: CONFUSED Headache, drowsiness COMPARISON: Head Brain Wo Cont dated 08/28/2022; Head angio dated 07/12/2021 TECHNIQUE: All CT scans are performed using dose optimization technique as appropriate and may inclu de automated exposure control or mA/KV adjustment according to patient size. FINDINGS: No intracranial hemorrhage, hydrocephalus or extra-axial fluid collection.Advanced general ized brain atrophy is present with moderate periventricular and deep white matter chronic microvascul ar ischemic changes.No areas of brain edema or evidence of midline shift. Moderate polypoid mucosal thickening right maxillary antrum. The calvarium is intact. IMPRESSION: No acute intracranial abnormality.
--- NOTE | 2022-12-08 19:21 | ER ---
Nurse's Notes [facility] Name: Lashell Mathur Age: 87 yrs Sex: Female : 1935 Arrival Date: 12/08/2022 Time: 17:17 Bed 24 Private MD: Diagnosis: UTI/ Urinary tract infection, site not specified;Altered mental status, unspecified Presentation: 12/08 17:31 Chief complaint: Patient's son or daughter states: "Today, she seemed confused, lost, mb9 dizzy, and had a headache. She was scared because she didn't know where she was at and needed help.". Coronavirus screen: At this time, the client does not indicate any symptoms associated with coronavirus-19. Ebola Screen: No symptoms or risks identified at this time. Initial Sepsis Screen: Does the patient meet any 2 criteria? No. Patient's initial sepsis screen is negative. Does the patient have a suspected source of infection? No. Patient's initial sepsis screen is negative. Risk Assessment: Do you want to hurt yourself or someone else? Patient reports no desire to harm self or others. Onset of symptoms was December 08, 2022. 17:31 Method Of Arrival: Wheelchair mb9 17:31 Acuity: TERESA 3 mb9 Triage Assessment: 17:34 General: Appears uncomfortable, Behavior is cooperative. Pain: Complains of pain in mb9 head. Neuro: Level of Consciousness is awake, obeys commands, Oriented to person. Cardiovascular: Patient's skin is warm and dry. Respiratory: Airway is patent Respiratory effort is even, unlabored, Respiratory pattern is regular, symmetrical. Derm: Skin is fragile, is thin, with poor turgor. Musculoskeletal: Range of motion: intact in all extremities. Historical: - Allergies: 17:33 No Known Allergies; mb9 - Home Meds: 17:33 carvedilol oral [Active]; mb9 - PMHx: 17:33 Hypertensive disorder; mb9 - PSHx: 17:33 None; mb9 - Immunization history:: Adult Immunizations up to date. - Social history:: Smoking status: Patient denies any tobacco usage or history of. Screenin:36 [facility] ED Fall Risk Assessment (Adult) Confusion or Disorientation Yes (5 pts) dd1 Score/Fall Risk Level 3 or more points = High Risk. 18:36 Abuse screen: UNABLE TO VERIFY PT IS ALTERED, NO SUSPITION OF ABUSE NOTICED PER THIS dd1 RN. Nutritional screening: No deficits noted. Tuberculosis screening: No symptoms or risk factors identified. 18:48 [place] Swallow Protocol 3 oz Water Swallow Challenge: Pt able to drink all water without dd1 stopping, coughing, choking or throat clearing: Yes. Assessment: 18:36 Neuro: Reports PT FAMILY MEMBER REPORTS PT HAS BEEN GETTING MORE ALTERED FOR THE PAST dd1 COUPLE MONTHS. FAMILY STATES PT ASKED TO COME IN TODAY. TO THE ED. PT IS AOX2 AT THE MOMENT. NAD NOTED.. Vital Signs: 17:31 BP 147 / 58; Pulse 79; Resp 16; Temp 98.9; Pulse Ox 98% on R/A; Weight 58.97 kg; Height mb9 5 ft. 5 in. ; 18:36 BP 146 / 62; Pulse 72; Resp 16; Pulse Ox 98% ; Pain 0/10; dd1 18:46 Temp 98.4; dd1 17:31 Body Mass Index 21.63 (58.97 kg, 165.1 cm) mb9 18:36 Pain Scale: Adult dd1 ED Course: 17:23 Patient arrived in ED. mg5 17:26 Thu Arrington, BAO is PHCP. aj3 17:26 Iam Mccoy DO is Attending Physician. aj3 17:31 Arm band placed on. mb9 17:33 Triage completed. mb9 17:42 Neymar Nelson, RN is Primary Nurse. dd1 18:26 Urinalysis W/Microscopic Sent. dd1 18:30 No provider procedures requiring assistance completed. Inserted saline lock: 20 gauge dd1 in right antecubital area, using aseptic technique. 18:36 Bed in low position. Call light in reach. Side rails up X2. Adult w/ patient. dd1 18:39 Chest Single View XRAY In Process Unspecified. EDMS 18:59 CT Head Brain wo Cont In Process Unspecified. EDMS 20:02 IV discontinued, intact. dd1 20:03 Provided Education on: DC INSTRUCTIONS GIVEN TO SON AT BEDSIDE. dd1 Administered Medications: 19:40 Drug: Cephalexin PO 500 mg PO once Route: PO; dd1 Medication: 18:36 VIS not applicable for this client. dd1 Outcome: 19:21 Discharge ordered by . aj3 20:02 Discharged to home ambulatory, dd1 20:02 Condition: good 20:02 Discharge instructions given to patient, family, 20:03 Patient left the ED. dd1 Signatures: Dispatcher [employer] EDThu Olguin, PREPARATION SUPERVISOR FREEZING PREPARATION SUPERVISOR FREEZING aj3 Irais Mcclelland, RN RN mb9 Sisi Mccracekn 5 Neymar Nelson RN RN dd1
--- NOTE | 2022-12-08 19:21 | EDPHYS ---
Physician Documentation [facility] [place] Name: Lashell Mathur Age: 87 yrs Sex: Female : 1935 Arrival Date: 12/08/2022 Time: 17:17 Bed 24 Private MD: ED Physician Iam Mccoy HPI: 12/08 17:49 This 87 yrs old Female presents to ER via Wheelchair with complaints of aj3 Confusion, Dizziness. 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 He noticed that since she has been discharged, she has become more forgetful/confused, not knowing who he is or where she is sometimes. Today he he came home and noticed that she was outside confused and scared because she did not know where she was. He did report that she complained of headache but otherwise no other symptoms reported. No obvious signs of respiratory distress, vomiting, fever. Historical: - Allergies: 17:33 No Known Allergies; mb9 - Home Meds: 17:33 carvedilol oral [Active]; mb9 - PMHx: 17:33 Hypertensive disorder; mb9 - PSHx: 17:33 None; mb9 - Immunization history:: Adult Immunizations up to date. - Social history:: Smoking status: Patient denies any tobacco usage or history of. ROS: 17:49 Constitutional: Negative for fever, chills, and weight loss, Neck: Negative for injury, aj3 pain, and swelling, Cardiovascular: Negative for chest pain, palpitations, and edema, Respiratory: Negative for shortness of breath, cough, wheezing, and pleuritic chest pain, Abdomen/GI: Negative for abdominal pain, nausea, vomiting, diarrhea, and constipation, : Negative for dysuria, hematuria, discharge or pelvic pain MS/Extremity: Negative for injury and deformity, Skin: Negative for injury, rash, and discoloration, 17:49 Neuro: Positive for altered mental status, headache, Negative for gait disturbance, numbness, syncope, Exam: 17:49 Constitutional: This is a well developed, well nourished patient who is awake, alert, aj3 and in no acute distress. Head/Face: Normocephalic, atraumatic. Neck: Supple, full range of motion without nuchal rigidity. Cardiovascular: Regular rate and rhythm with a normal S1 and S2. No gallops, murmurs, or rubs. Normal PMI, no JVD. No pulse deficits. Respiratory: Lungs have equal breath sounds bilaterally, clear to auscultation and percussion. No rales, rhonchi or wheezes noted. No increased work of breathing, no retractions or nasal flaring. Abdomen/GI: Soft, non-tender, with normal bowel sounds. No distension or tympany. No guarding or rebound. No evidence of tenderness throughout. Skin: Warm, dry with normal turgor. Normal color with no rashes, no lesions, and no evidence of cellulitis. MS/ Extremity: Pulses equal, no cyanosis. Neurovascular intact. Full, normal range of motion. 17:49 Neuro: Orientation: to person, place, Not oriented to time, situation, Cranial nerves: CN II- XII are normal as tested, 18:23 ECG was reviewed by the Attending Physician. aj3 Vital Signs: 17:31 BP 147 / 58; Pulse 79; Resp 16; Temp 98.9; Pulse Ox 98% on R/A; Weight 58.97 kg; Height mb9 5 ft. 5 in. ; 18:36 BP 146 / 62; Pulse 72; Resp 16; Pulse Ox 98% ; Pain 0/10; dd1 18:46 Temp 98.4; dd1 17:31 Body Mass Index 21.63 (58.97 kg, 165.1 cm) mb9 18:36 Pain Scale: Adult dd1 MDM: 17:49 Patient medically screened. aj3 17:49 Differential diagnosis: pneumonia UTI, intracranial bleed, intracranial mass, ischemic aj3 stroke, dehydration, electrolyte imbalance, anemia, ACS. Data reviewed: vital signs, nurses notes, I have discussed the patient's presentation/case with the attending Emergency Department Physician;. Historians other than the Patient: Daughter/Son: Patient son. 18:53 Data reviewed: lab test result(s), urinalysis, bacteruria. aj3 19:31 Data reviewed: EKG, radiologic studies. Independent interpretation of the following aj3 test(s) in the Emergency Department EKG: See my EKG interpretation above CT Scan: My interpretation is No acute head bleed noted. store leader: rate is 76 beats/min, Rhythm is normal sinus rhythm. 19:31 Care significantly affected by the following chronic conditions: Hypertension. aj3 Counseling: I had a detailed discussion with the patient and/or guardian regarding the historical points, exam findings, and any diagnostic results supporting the discharge/admit diagnosis, the presence of at least one elevated blood pressure reading (>120/80) during this emergency department visit, lab results, radiology results, the need for outpatient follow up, to return to the emergency department if symptoms worsen or persist or if there are any questions or concerns that arise at home. ED course: Patient's labs concerning for UTI which could explain her recent confusion. ED work-up otherwise is unremarkable and does not warrant admission today. Will discharge patient home with Keflex after giving first dose in the ED. Discharge instructions for supportive measures, follow-up and strict ER return precautions given.. 12/08 17:36 Order name: Basic Metabolic Panel; Complete Time: 18:50 [facility] 12/08 17:36 Order name: CBC with Diff; Complete Time: 18:50 [facility] 12/08 17:36 Order name: High Sensitivity Troponin; Complete Time: 18:50 [facility] 12/08 17:36 Order name: Protime (+inr); Complete Time: 18:50 [facility] 12/08 17:36 Order name: Ptt, Activated; Complete Time: 18:50 [facility] 12/08 17:36 Order name: Urinalysis W/Microscopic; Complete Time: 18:50 [facility] 12/08 18:42 Order name: Urine Culture [facility] 12/08 18:46 Order name: Glucose, Ancillary Testing; Complete Time: 18:50 [facility] 12/08 17:36 Order name: CT Head Brain wo Cont; Complete Time: 19:14 [facility] 12/08 17:36 Order name: Chest Single View XRAY; Complete Time: 19:14 [facility] 12/08 17:36 Order name: EKG; Complete Time: 17:37 [facility] 12/08 17:36 Order name: Accucheck; Complete Time: 18:36 [facility] 12/08 17:36 Order name: Cardiac monitoring; Complete Time: 18:25 [facility] 12/08 17:36 Order name: EKG - Nurse/Tech; Complete Time: 18:25 [facility] 12/08 17:36 Order name: IV Saline Lock; Complete Time: 18:25 aj12/08 17:36 Order name: Labs collected and sent; Complete Time: 18:26 12/08 17:36 Order name: NPO; Complete Time: 18:26 12/08 17:36 Order name: O2 Per Protocol; Complete Time: 17:43 12/08 17:36 Order name: O2 Sat Monitoring; Complete Time: 17:43 12/08 17:36 Order name: Stroke Swallow Screen; Complete Time: 18:48 aj3 EC:16 Rate is 75 beats/min. Rhythm is regular. QRS [place] is Normal. VA interval is normal. QRS aj3 interval is normal. QT interval is normal. No ST changes noted. Clinical impression: Normal ECG. Interpreted by me. Reviewed by me. Administered Medications: 19:40 Drug: Cephalexin PO 500 mg PO once Route: PO; dd1 Disposition: 18:55 I was immediately available on-site in the Emergency Department for consultation in the ms3 care of the patient. Disposition Summary: 12/08/22 19:21 Discharge Ordered Problem: new aj3 Symptoms: have improved aj3 Condition: Stable aj3 Diagnosis - UTI/ Urinary tract infection, site not specified aj3 - Altered mental status, unspecified aj3 Followup: aj3 - With: Private Physician - When: - Reason: Recheck today's complaints, Re-evaluation by your physician Followup: aj3 - With: Emergency Department - When: - Reason: Trouble breathing, Worsening of condition Discharge Instructions: - Discharge Summary Sheet aj3 - Urinary Tract Infection, Adult, [id number] aj3 Forms: - Medication Reconciliation Form aj3 - Thank You Letter aj3 - Antibiotic Education aj3 - Prescription Opioid Use aj3 - Patient Portal Instructions aj3 - Leadership Thank You Letter aj3 Prescriptions: - Cephalexin 500 mg Oral capsule - take 1 capsule ORAL route every 12 hours for 7 days; 14 capsule; Refills: 0, aj3 Product Selection Permitted Signatures: Dispatcher [employer] EDIam Schneider DO DO ms3 Thu Arrington NP [employer]OD[employer] M[employer] WORKER [email or web address] Irais Mcclelland, RN RN mb9 Neymar Nelson RN RN dd1
[2022-12-08] MEDS ORDERED: CEPHALEXIN 250 MG CAP ONE (19:49)
[2022-12-08 20:57] VITALS: O2SAT 98
[2022-12-08 20:58] VITALS: BP 146/62
[2022-12-08 20:59] VITALS: TEMP 98.4
--- NOTE | 2022-12-09 14:31 | EKG ---
Test Date: 2022-12-08 Test Time: 18:16:11 Investigator Cash Shortage: BIA MEASUREMENT RESULTS: Intervals: Rate: 75 [place]: 148 QRSD: 64 QT: 398 QTc: 444 [place]: P: 55 [place]: 148 QRS: 22 T: 71 INTERPRETIVE STATEMENTS: Normal sinus rhythm Septal infarct, age undetermined Abnormal ECG Compared to ECG 08/28/2022 09:11:15 Myocardial infarct finding now present Atrial premature complex(es) no longer present ST (T wave) deviation no longer present Electronically Signed On 12-09-22 14:30:22 CDT by Kody Murrieta
== END 2022-12-08 20:03 | disposition home or self-care (01) ==
LOC: ER 17:17
DX: N39.0 Urinary tract infection, site not specified (principal); R51.9 Headache, unspecified; I10 Essential (primary) hypertension
CPT/HCPCS: 36415; 70450; 71045; 80048; 81001; 82947; 84484; 85025; 85610; 85730; 87086; 87088; 93005

== ENCOUNTER 2023-01-17 18:55 | Observation (INO) | payer OTHER ==
--- OUTSIDE RECORDS SUMMARY | 2023-01-17 19:00 | XMS REPORT | Continuity of Care Document ---
:[address] [facility] t Address [address] [facility] [address] [place] [address] Care Team Providers Name Role Phone [facility] Primary Care Physician Unavailable LYNETTE AMADOR Attending Clinician Unavailable GEORGE BURDICK Attending Clinician Unavailable GEORGE BURDICK Attending Clinician Unavailable George Burdick MD Attending Clinician Doctor Unassigned, [place] Attending Clinician Unavailable Carla COLBERT, Rosario Wilkins Attending Clinician [phone] Jesus Toney MD, Kirsten Braun Attending Clinici an Lynette Amador MD Attending Clinician ROSARIO AGUIRRE Attending Clinician Unavailable ROSARIO AGUIRRE Admitting Clinician Unavailable Payers Payer Name Policy Type Policy Number Effective Date Expiration Date Yenny reaves [facility] [id number] 2022 [facility] 00:00:00 [facility] [id number] 2022 00:00:00 Problems Condition Condition Condition Status Onset Resolution Last Treating Co mments Source Name Details Category Date Date Treatment Clinician Date Hypertensi Hypertensi Disease Active C [facility], urgency, 00:00: Medica l malignant malignant 00 Cent er ICH ICH Disease Recurre [facility] (intracere (intracere nce 6-09 Tracie kes bral bral 00:00: Medical hemorrhage hemorrhage 00 Ce nter ) ) Allergies, Adverse Reactions, Alerts Allergy Allergy Status Severity Reaction(s) Onset Inactive Treating Comm ents Source Name Type Date Date Clinician NO KNOWN Drug Active [facility] NO KNOWN Allergy Active [facility] Social History Social Habit Start Date Stop Date Quantity Comments Source Sexual orientation Univer [facility] Tobacco use and 2022-12-18 2022-12-18 Smokeless Universit y of exposure 00:00:00 00:00:00 tobacco non-user [facility] Social 2022-12-18 2022-12-18 Univers ity of function 00:00:00 00:00:00 [facility] Alcohol intake 2022-08-28 2022-08-[address] [facility] 00:00:00 00:00:00 non-drinker [facility] (finding) Sex Assigned At [birth year] [facility] 00:[facility]:00 00:00:00 [facility] Smoking Status Start Date Stop Date Source Tobacco smoking consumption [facility] Never smoked tobacco [facility] Medications Ordered Filled Start Stop Current Ordering Indication Dosage Frequency Signature Comments Components Source Medication Medication Date Date Medication? Clinician (SIG) Name Name rivastigmin 2022-03 Yes [id number] 1{patch Apply 1 Univers e 4.6 mg/24 0-01 } Patch to [place]. Branch rivastigmin 2022-03 Yes [id number] 1{patch Apply 1 Univers e 4.6 mg/24 0-01 } Patch to [place] Medical morning. Branch carvediloL 2023- No 25mg Q.5D Take 1 [...] by mouth Cent er tablet daily. carvediloL 2022-0 2023- No 25mg Q.5D Take [address] (COREG) 25 6-15 06-14 tablet (25 Tracie kes MG tablet 00:00: 23:59 mg total) Me dical 00 :00 by mouth 2 Center (two) times daily. NIFEdipine 2022-0 2023- No 30mg QD Take [address] [facility] (PROCARDIA- 6-15 06-14 tablet (30 L ukes XL) 30 MG 00:00: 23:59 mg total) Me dical (OSM) 24 hr 00 :00 by mouth Cent er tablet daily. carvediloL 2022-0 202- No 25mg Q.5D Take [address] (COREG) 25 6-14 06-15 tablet (25 Tracie kes MG tablet 00:00: 00:00 mg total) Me dical 00 :00 by mouth 2 Center (two) times daily. NIFEdipine 2022-0 2022- No 30mg QD Take [address] (PROCARDIA- 6-14 06-15 tablet (30 L ukes XL) 30 MG 00:00: 00:00 mg total) Me dical (OSM) 24 hr 00 :00 by mouth Cent er tablet daily. NIFEdipine 2022-0 2022- No 30mg QD Take [address] (PROCARDIA- 6-14 06-15 tablet (30 L ukes XL) 30 MG 00:00: 00:00 mg total) Me dical (OSM) 24 hr 00 :00 by mouth Cent er tablet daily. carvediloL 0 2022- No 25mg Q.5D Take [address] (COREG) 25 6-14 06-15 tablet (25 Tracie kes MG tablet 00:00: 00:00 mg total) Me dical 00 :00 by mouth 2 Center (two) times daily. Immunizations Ordered Immunization Filled Immunization Date Status Commen ts Source Name Name SARS-COV-2 COVID-19 Unknown Completed Unive rsity of MODERNA 12+ YRS [facility] ical VACCINE Branch SARS-COV-2 COVID-19 Unknown Completed Unive rsity of MODERNA 12+ YRS [facility] ical VACCINE Branch SARS-COV-2 COVID-19 Unknown Completed Unive rsity of MODERNA 12+ YRS [facility] ical VACCINE Branch SARS-COV-2 COVID-19 Unknown Completed Unive rsity of MODERNA 12+ YRS [facility] ical VACCINE Branch SARS-COV-2 COVID-19 Unknown Completed Unive rsity of MODERNA 12+ YRS [facility] ical VACCINE Branch SARS-COV-2 COVID-19 Unknown Completed Unive rsity of MODERNA 12+ YRS [facility] ical VACCINE Branch Vital Signs Vital Name Observation Time Observation Value Comments Source Systolic blood 2022-12-18 14:03:00 163 mm[Hg] Univer sity of pressure [facility] Diastolic blood 2022-12-18 14:03:00 86 mm[Hg] Unive rsity of pressure [facility] Heart rate 2022-12-18 14:00:00 59 /min Universi ty [facility] Respiratory rate 2022-12-18 14:00:00 18 /min [facility] Body height 2022-12-18 14:00:00 157.5 cm [facility] Body weight 2022-12-18 14:00:00 51.801 kg [facility] BMI 2022-12-18 14:00:00 20.89 kg/m2 [facility] Oxygen saturation in 2022-12-18 14:00:00 99 /min [facility] Arterial blood by [facility] Pulse oximetry Branch HEIGHT 2022-08-28 12:00:00 160 cm WEIGHT 2022-08-28 12:00:00 39 kg HEIGHT 2022-08-28 12:00:00 160 cm WEIGHT 2022-08-28 12:00:00 39 kg HEIGHT 2022-08-28 12:00:00 160 cm WEIGHT 2022-08-28 12:00:00 39 kg Systolic blood 2022-09-02 07:59:00 120 mm[Hg] [facility] Diastolic blood 2022-09-02 07:59:00 56 mm[Hg] [facility] Heart rate 2022-09-02 07:59:00 72 /min [facility] Body temperature 2022-09-02 07:59:00 37.06 Helga [facility] Respiratory rate 2022-09-02 07:59:00 19 /min [facility] Oxygen saturation in 2022-09-02 07:59:00 96 /min [facility] Arterial blood by Medical Ce nter Pulse oximetry Body height 2022-08-28 12:00:00 160 cm [facility] Body weight 2022-08-28 12:00:00 39 kg [facility] BMI 2022-08-28 12:00:00 15.23 kg/m2 [facility] Procedures Procedure Date / Time Performing Clinician Source Performed CONSENT/REFUSAL FOR 2022-12-18 13:36:25 Doctor Unassigned, No Un [facility] DIAGNOSIS AND TREATMENT Name Medical Branch POCT-GLUCOSE METER 2022-09-02 08:12:00 Perry, [facility] POCT-GLUCOSE METER 2022-09-02 04:47:00 Perry, [facility] CBC W/PLT COUNT & AUTO 2022-09-02 04:18:00 Perry, [facility] BASIC METABOLIC PANEL 2022-09-02 04:18:00 Perry, [facility] CBC W/PLT COUNT & AUTO 2022-09-02 04:18:00 Perry, [facility] POCT-GLUCOSE METER 2022-09-02 00:15:00 Perry, [facility] POCT-GLUCOSE METER 2022-09-01 17:34:00 [facility], [facility] 2D ECHO W/ DOPPLER 2022-09-01 12:58:58 Thai [facility] (CW/PW/COLOR) [place] POCT-GLUCOSE METER 2022-09-01 08:05:00 Perry, [facility] POCT-GLUCOSE METER 2022-09-01 06:09:00 Perry, [facility] CBC W/PLT COUNT & AUTO 2022-09-01 04:41:00 Perry, [facility] BASIC METABOLIC PANEL 2022-09-01 04:41:00 Perry, [facility] CBC W/PLT COUNT & AUTO 2022-09-01 04:41:00 Perry, [facility] CTA CAROTID 2022-09-01 03:53:38 FengShaye [facility] CTA BRAIN 2022-09-01 03:53:38 FengGeorgeShaye R [facility] POCT-GLUCOSE METER 2022-09-01 00:13:00 Perry, [facility] MR BRAIN WITH & WITHOUT 2022-08-31 18:34:14 Perry, [facility] CONTRAST [place] POCT-GLUCOSE METER 2022-08-31 11:57:00 Perry, [facility] POCT-GLUCOSE METER 2022-08-31 08:12:00 Perry, [facility] POCT-GLUCOSE METER 2022-08-31 06:18:00 Perry, [facility] CBC W/PLT COUNT & AUTO 2022-08-31 04:22:00 Perry, [facility] BASIC METABOLIC PANEL 2022-08-31 04:22:00 Perry, [facility] CBC W/PLT COUNT & AUTO 2022-08-31 04:22:00 Perry, [facility] POCT-GLUCOSE METER 2022-08-31 00:36:00 Perry, [facility] POCT-GLUCOSE METER 2022-08-30 17:18:00 Perry, [facility] POCT-GLUCOSE METER 2022-08-30 05:39:00 Jesus Toney [facility] CBC W/PLT COUNT & AUTO 2022-08-30 03:24:00 Mary Reyes [facility] BASIC METABOLIC PANEL 2022-08-30 03:24:00 Amy [facility] CBC W/PLT COUNT & AUTO 2022-08-30 03:24:00 Mary Reyes [facility] POCT-GLUCOSE METER 2022-08-30 00:04:00 Jesus Toney [facility] POCT-GLUCOSE METER 2022-08-29 18:07:00 [facility] IV 2022-08-29 12:28:40 [facility] POCT-GLUCOSE METER 2022-08-29 11:36:00 [facility] POCT-GLUCOSE METER 2022-08-29 05:51:00 [facility] W/PLT COUNT & AUTO 2022-08-29 03:36:[address] [facility] HIGH SENSITIVITY 2022-08-29 03:36:00 [facility] TROPONIN I Center MAGNESIUM 2022-08-29 03:36:00 [facility] PHOSPHORUS 2022-08-29 03:36:00 [facility] BASIC METABOLIC PANEL 2022-08-29 03:36:00 [facility] CBC W/PLT COUNT & AUTO 2022-08-29 03:36:[address] [facility] POCT-GLUCOSE METER 2022-08-28 18:33:00 Aguirre [facility] HIGH SENSITIVITY 2022-08-28 18:27:00 [facility] TROPONIN I Center CBC W/PLT COUNT & AUTO 2022-08-28 16:56:[address] [facility] BASIC METABOLIC PANEL 2022-08-28 16:56:00 [facility] CBC W/PLT COUNT & AUTO 2022-08-28 16:56:[address] [facility] POCT-GLUCOSE METER 2022-08-28 14:24:00 Aguirre [facility] UT INSERT 2022-08-28 14:21:01 Jeremías Jarvis [facility] CATH,ART,PERCUT,SHORTTE Center RM HEPATIC FUNCTION PANEL 2022-08-28 14:18:00 [facility] PROTHROMBIN TIME/INR 2022-08-28 14:18:00 [facility] APTT 2022-08-28 14:18:00 [facility] HIGH SENSITIVITY 2022-08-28 14:18:00 [facility] ECG 12-LEAD 2022-08-28 14:07:01 [facility] ECG 12-LEAD 2022-08-28 14:07:01 Unknown, 7 [facility] ECG 12-LEAD 2022-08-28 14:07:01 Unknown, 7 [facility] ECG 12-LEAD 2022-08-28 14:06:36 Unknown, 7 [facility] ECG 12-LEAD 2022-08-28 14:06:36 Unknown, 7 [facility] Plan of Care Planned Activity Planned Date Details Comments Source Future Scheduled 2023-08-[address] [facility] Test 00:[facility]00 [facility] r Screening (12+) [code = Tobacco Cessation Counseling and Screening (12+)] Future Scheduled 2023-08-[address] [facility] Test 00:00:00 [facility] r Screening (12+) [code = Tobacco Cessation Counseling and Screening (12+)] Future Scheduled 2022-11-20 Influenza Vaccine (#1) [facility] 00:00:00 [code = Influenza Medical Ce nter Vaccine (#1)] Future Scheduled 2022-11-20 Influenza Vaccine (#1) C [...] Medicare IPPE (WELCOME TO MEDICARE)] Future Scheduled 2022-03-[address] [...] - Booster for Moderna series)] Future Scheduled 2020-08-11 COVID-19 VACCINE (3 - [facility] 00:00[facility]00 Booster for Moderna Medical Center series) [code = COVID-19 VACCINE (3 - Booster for Moderna series)] Future Scheduled 1998 PNEUMOCOCCAL 65+ YRS [facility] Test 00:00:00 (1 - PCV) [code = Medical Ce nter PNEUMOCOCCAL 65+ YRS (1 - PCV)] Future Scheduled 1998 PNEUMOCOCCAL 65+ YRS [facility] Test 00:00:00 (1 - PCV) [code = Medical Ce nter PNEUMOCOCCAL 65+ YRS (1 - PCV)] Future Scheduled 1983-12-03 SHINGLES VACCINES ([address] [facility] Test 00:00:00 of 2) [code = SHINGLES Medic al Center VACCINES (1 of 2)] Future Scheduled 1983-12-03 SHINGLES VACCINES ([address] [facility] Test 00:00:00 of 2) [code = SHINGLES Medic al Center VACCINES (1 of 2)] Future Scheduled 1952 DTAP/TDAP/TD VACCINES [facility] 00:00:00 (1 - Tdap) [code = Medical C enter DTAP/TDAP/TD VACCINES (1 - Tdap)] Future Scheduled 1952 DTAP/TDAP/TD VACCINES [facility] 00:00:00 (1 - Tdap) [code = Medical C enter DTAP/TDAP/TD VACCINES (1 - Tdap)] Encounters Start End Encounter Admission Attending Care Care Encounter Source Date/Time Date/Time Type Type Clinicians Facility Department ID 2022-09-01 Inpatient ER LYNETTE AMADOR [facility] [id number] [facility] 12:01:44 2022-08-31 Inpatient ER LYNETTE AMADOR [facility] [id number] [facility] 17:33:41 2022-12-28 2022-12-28 Outpatient [facility] [place] 10:54:36 10:54:36 [id number] [place] 2022-12-18 2022-12-18 Outpatient R GEORGE BURDICK [facility] [id number] Univers 09:00:00 10:21:33 GEORGE BURDICK ity of [facility] 2022-12-18 2022-12-18 Office Gennaro [facility] [id number] Univers 09:00:00 10:21:33 Visit [facility] [id number] ity of [place] [id number] Jayjay as SYD?BLEA [id number] [address] MEDICAL OFFICE BUILDING 2022-12-18 2022-12-18 Orders Doctor SENTHIL [id number] Univers 00:00:00 00:00:00 Only Unassigned, MARYAM [id number] ity of [place] [facility] [id number] Jayjay as [id number] [address] 2022-10-14 2022-10-14 Outpatient [facility] [place] 10:23:35 10:23:35 [id number] [place] 2022-10-08 2022-10-08 Outpatient [facility] [place] 13:50:29 13:50:29 [id number] [place] 2022-09-18 2022-09-18 Outpatient [facility] [place] 09:04:50 09:04:50 [id number] [place] 2022-08-28 2022-09-02 [facility] Rosario Aguirre [facility] [id number] [facility] 11:31:00 10:59:00 Encounter Kirsten Reneei Lutessie Perry, Lynette [facility] 2022-08-28 2022-09-02 Hospital ER Rosario Aguirre [facility] [id number] [facility] 11:31:00 10:59:00 Encounter Kirsten Renee [facility] Perry, [facility] 2022-08-28 2022-09-02 Inpatient ER PERRY, LYNETTE [facility] Neurology [id number] [facility] 11:31:00 10:59:00 2022-09-01 2022-09-01 Inpatient ER PERRY, LYNETTE [facility] [id number] [facility] 03:13:20 23:59:00 2022-09-01 2022-09-01 [facility] [id number] 02:20:00 23:59:00 Encounter Rosario Aguirre [facility] 2022-09-01 2022-09-01 [facility], [facility] [id number] 02:20:00 23:59:00 Encounter Rosario Aguirre [facility] 2022-08-29 2022-08-29 Inpatient ER CARLA [facility] [id number] [facility] 12:18:36 00:00:00 [facility] 2022-08-28 2022-08-28 Orders [facility] [id number] 00:00:00 00:00:00 Only [facility] 2022-08-28 2022-08-28 Travel [facility] [id number] [facility] 00[facility]00 [facility] 2022-08-28 2022-08-28 Orders [facility] [id number] 00:00:00 00:00:00 [facility] 2022-08-28 2022-08-28 Travel [facility] [id number] [facility] 00:00:00 00:00:00 [facility] Results Test Description Test Time Test Comments Results Result Comments Source POC-Glucose meter 2022-09-02 08:27:14 Test Item Value Reference Range Interpretation Comme nts POC-Glucose Meter (test code = 122 mg/dL 70-110 H : TESTED AT [facility] [address] [facility] 1538) [facility], 770 30: Manager Welding/Techni shad ID = [id number] for ROHIT SUAZO [place] Lab Interpretation (test code = Abnormal 54680-9) [facility] [id number] 08:27:14 Test Item Value Reference Range Interpretation Comments POC-Glucose Meter (test 122 mg/dL 70-110 H : TE STED AT [facility] code = 1538) [address] [facility], 770 30: Manager Welding/Techni shad ID = [id number] for ROHIT SUAZO [place] Lab Interpretation (test Abnormal code = 49801-3) [facility]-GLUCOSE [id number] 08:27:14 Test Item Value Reference Range Interpretation Comments POC-GLUCOSE METER 122 mg/dL 70-110 H : TESTED A T [facility] 6720 (BEAKER) (test code = BERTNE R [facility], 1538) 58867: Manager Welding/Techni shad ID = [id number] for PERI UREÑA BASIC METABOLIC [id number] 05:17:53 Test Item Value Reference Range Interpretation [...] not appl icable for dialysis patien ts Manager Welding ID - FAM WPOCT-GLUCOSE [id number] 04:58:41 Test Item Value Reference Range Interpretation Comments POC-GLUCOSE METER 106 mg/dL 70-110 : TESTED A T [facility] 6720 (BEAKER) (test code = LIDIA Crane [facility], 1538) 02942: Manager Welding/Techni shad ID = [id number] for Ty Herman garcia CBC W/PLT COUNT & AUTO [id number] 04:46:48 Test Item Value Reference Range Interpretation [...] PERCENT (BEAKER) (test code = 2801) POCT-GLUCOSE [id number] 00:27:42 Test Item Value Reference Range Interpretation Comments POC-GLUCOSE METER 114 mg/dL 70-110 H : TESTED A T [facility] 6720 (BEAKER) (test code = [facility], 1538) 25350: Manager Welding/Techni shad ID = [id number] for Herman Johnson POCT-GLUCOSE [id number] 17:46:16 Test Item Value Reference Range Interpretation Comments POC-GLUCOSE METER 116 mg/dL 70-110 H : TESTED A T [facility] 6720 (BEAKER) (test code = [facility], 1538) 41988: Manager Welding/Techni shad ID = [id number] for PERI UREÑA MR BRAIN WITH & WITHOUT IV [id number] 14:20:42 [facility] 1935 Sex: FMR BRAIN WITH & WITHOUT IV CONTRASTINDICATION: Stroke, follow upTechnique: MRI of the brain utilizing axial T1, T2, FLAIR, GRE, DWI,sagittal T1; and postgadolinium [...] are nonspecific, however, statisticallyrepresent chronic microvascular ischemic ch anges.No hydrocephalus.Orbits are within normal limits.Moderate mucosal thickening of the right maxillary sinus.Additional findings: None.IMPRESSION:1. Unchanged appearance of 1.2 x 1.8 cm intraparenchymal hematomawithin the left basal ganglia with associated hemosiderin deposition.2. 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 withinthe extreme capsules bilaterally is redemonstrated.POCT-GLUCOSE [id number] 08:18:49 Test Item Value Reference Range Interpretation Comments POC-GLUCOSE METER 101 mg/dL 70-110 : TESTED A T [facility] 6720 (BEAKER) (test code = [facility], 1538) 95065: Manager Welding/Techni shad ID = [id number] for PERI UREÑA BASIC METABOLIC [id number] 06:37:20 Test Item Value Reference Range Interpretation [...] high >=90 G2 Mildly decreased 60-89 G3a Mild ly to moderately 45-5 9 G3b Moderately to [...] not appl icable for dialysis patien ts Manager Welding ID - FAM WPOCT-GLUCOSE [id number] 06:20:57 Test Item Value Reference Range Interpretation Comments POC-GLUCOSE METER 100 mg/dL 70-110 : TESTED A T [facility] 6720 (RIZWANA) (test [facility], = 1538) 77781: Manager Welding/Techni shad ID = [id number] for Jermaine Quiñones CTA [id number] 05:08:29 [facility] CENTERName: CRUZ KYLE : 1935 Sex: FEXAM: CTA [...] (PComm): Not well-visualizedbilaterally.Posterior Circulation:Right posterior cerebral artery (JAVA WEB APPLICATION DEVELOPER): Moderate stenosis of the J7zypfecy with patency distally.Left posterior cerebral artery (JAVA WEB APPLICATION DEVELOPER): NormalRight vertebral artery (VA): NormalLeft vertebral artery [...] significant stenosis on CTA of the neck.CTA [id number] 05:08:29 [facility] CENTERName: CRUZ KYLE : 1935 Sex: FEXAM: CTA [...] (PComm): Not well-visualizedbilaterally.Posterior Circulation:Right posterior cerebral artery (JAVA WEB APPLICATION DEVELOPER): Moderate stenosis of the B2wernpkm with patency distally.Left posterior cerebral artery (JAVA WEB APPLICATION DEVELOPER): NormalRight vertebral artery (VA): NormalLeft vertebral artery [...] of the neck.CBC W/PLT COUNT & AUTO [id number] 04:55:51 Test Item Value Reference Range Interpretation [...] PERCENT (BEAKER) (test code = 2801) POCT-GLUCOSE [id number] 00:29:31 Test Item Value Reference Range Interpretation Comments POC-GLUCOSE METER 105 mg/dL 70-110 : TESTED A T [facility] 6720 (BEAKER) (test code ROSY [facility], = 1538) 57962: Manager Welding/Techni shad ID = [id number] for Jermaine Quiñones POCT-GLUCOSE [id number] 12:10:56 Test Item Value Reference Range Interpretation Comments POC-GLUCOSE METER 144 mg/dL 70-110 H : TESTED A T [facility] 6720 (BEAKER) (test code = [facility], 1538) 81692: Manager Welding/Techni shad ID = [id number] for PERI UREÑA POCT-GLUCOSE [id number] 08:31:08 Test Item Value Reference Range Interpretation Comments POC-GLUCOSE METER 108 mg/dL 70-110 : TESTED A T [facility] 6720 (BEAKER) (test code = LEONORNY Royce [facility], 1538) 23300: Manager Welding/Techni shad ID = [id number] for PERI UREÑA BASIC METABOLIC [id number] 08:15:21 Test Item Value Reference Range Interpretation [...] not appl icable for dialysis patien ts Manager Welding ID - mmCBC W/PLT COUNT & AUTO [id number] 07:06:55 Test Item Value Reference Range Interpretation [...] PERCENT (BEAKER) (test code = 2801) POCT-GLUCOSE [id number] 06:29:48 Test Item Value Reference Range Interpretation Comments POC-GLUCOSE METER 116 mg/dL 70-110 H : TESTED A T [facility] 6720 (BEAKER) (test code = [facility], 153) 77786: Manager Welding/Techni shad ID = [id number] for JAMEY SHEETSTTA POCT-GLUCOSE [id number] 00:48:26 Test Item Value Reference Range Interpretation Comments POC-GLUCOSE METER 124 mg/dL 70-110 H : TESTED A T [facility] 6720 (BEAKER) (test code = [facility], 153) 74941: Manager Welding/Techni shad ID = [id number] for HORTENCIA ESTEVES, JAMEYTTA POCT-GLUCOSE [id number] 17:30:51 Test Item Value Reference Range Interpretation Comments POC-GLUCOSE METER 135 mg/dL 70-110 H : TESTED A T [facility] 6720 (BEAKER) (test code = [facility], 153) 69384: Manager Welding/Techni shad ID = [id number] for Elvia Davila POCT-GLUCOSE [id number] 05:50:46 Test Item Value Reference Range Interpretation Comments POC-GLUCOSE METER 147 mg/dL 70-110 H : TESTED A T [facility] 6720 (BEAKER) (test code [facility], = 1538) 63512: Manager Welding/Techni shad ID = [id number] for Jermaine Quiñones BASIC METABOLIC [id number] 05:04:55 Test Item Value Reference Range Interpretation [...] decreased 60-89 G3a Mildl y to moderately 45- 59 G3b Moderately to s everely 30-44 G4 Severl y decreased 15-29 G5 Kidney failure <15Reported eGF R is based on the CKD-EPI 2021 equation that d oes not use a race coefficientEsti mated GFR is not as accur ate as Creatinine Kiah praveen in predicting glom erular filtration rate . Estimated GFR is not appl icable for dialysis patien ts Manager Welding ID - MMCBC W/PLT COUNT & AUTO [id number] 04:36:37 Test Item Value Reference Range Interpretation [...] PERCENT (BEAKER) (test code = 2801) POCT-GLUCOSE [id number] 00:15:58 Test Item Value Reference Range Interpretation Comments POC-GLUCOSE METER 129 mg/dL 70-110 H : TESTED Princess [place] [id number] ([facility]) ([facility], = 1538) [address]: Manager Welding/Techni shad ID = [id number] for Jermaine Quiñones POCT-GLUCOSE [id number] 18:19:10 Test Item Value Reference Range Interpretation Comments POC-GLUCOSE METER 141 mg/dL 70-110 H : Notified RN/MD: ([facility]) (test code = TESTED AT [place] [id number]) [facility], [address]: Manager Welding/Techni shad ID = [id number] for VALERIE URIAS CT BRAIN WITHOUT IV [id number] 13:47:49 [facility] : 1935 Sex: FCT BRAIN [...] is persistent clinical concern for intracranial pathology, MRshould be considered for further characterization.POCT-GLUCOSE [id number] 11:52:01 Test Item Value Reference Range Interpretation Comments POC-GLUCOSE METER 109 mg/dL 70-110 : TESTED A T [facility] 6720 (BEAKER) (test code = LIDIA Crane [place], 1538) [address]: Manager Welding/Techni shad ID = [id number] for VALERIE URIAS POCT-GLUCOSE [id number] 06:03:17 Test Item Value Reference Range Interpretation Comments POC-GLUCOSE METER 108 mg/dL 70-110 : TESTED A T [facility] 6720 (BEAKER) (test code = LIDIA Crane [facility], 1538) [address]: Manager Welding/Techni shad ID = [id number] for Wes Suero HIGH SENSITIVITY TROPONIN [id number] 04:24:03 Test Item Value Reference Range Interpretation Comments HIGH SENSITIVITY TROPONIN I (test 50 pg/ml <=17 H code = 3489379) Manager Welding ID - MMThe REGISTERED NURSE MATERNAL CHILD STAT High Sensitivity Troponin-I results should be used in conjunctionwith other diagnostic information such as ECG, clinical observations and information, and patient symptoms to aid in the diagnosis of [place].BASIC METABOLIC [id number] 04:20:39 Test Item Value Reference Range Interpretation [...] not appl icable for dialysis patien ts Manager Welding ID - [id number] 04:20:39 Test Item Value Reference Range Interpretation Comments MAGNESIUM (BEAKER) (test code = 2.1 mg/dL 1.6-2.6 627) Manager Welding ID - [id number] 04:20:39 Test Item Value Reference Range Interpretation Comments PHOSPHORUS (BEAKER) (test code = 4.2 mg/dL 2.3-4.7 604) Manager Welding ID - MMCBC W/PLT COUNT & AUTO [id number] 04:03:40 Test Item Value Reference Range Interpretation [...] (test code = 2801) HIGH SENSITIVITY TROPONIN [id number] 18:57:01 Test Item Value Reference Range Interpretation Comments HIGH SENSITIVITY TROPONIN I (test 62 pg/ml <=17 H code = 9209100) Manager Welding ID - ADMINThe REGISTERED NURSE MATERNAL CHILD STAT High Sensitivity Troponin-I results should be used in conjunction with other diagnostic information such as ECG, clinical observations and information, and patientsymptoms to aid in the diagnosis of [place]. POCT-GLUCOSE [id number] 18:45:08 Test Item Value Reference Range Interpretation Comments POC-GLUCOSE METER 126 mg/dL 70-110 H : TESTED A T [facility] 6720 (BEAKER) (test code = [place], 1538) [address]: Manager Welding/Techni shad ID = [id number] for Ph am, Sharmin (Kendra) BASIC METABOLIC [id number] 17:22:03 Test Item Value Reference Range Interpretation [...] not appl icable for dialysis patien ts Manager Welding ID - ADMINCBC W/PLT COUNT & AUTO [id number] 17:07:51 Test Item Value Reference Range Interpretation [...] (test code = 2801) HIGH SENSITIVITY TROPONIN [id number] 14:52:16 Test Item Value Reference Range Interpretation Comments HIGH SENSITIVITY TROPONIN I (test 65 pg/ml <=17 H code = 5387486) Manager Welding ID - ADMINThe REGISTERED NURSE MATERNAL CHILD STAT High Sensitivity Troponin-I results should be used in conjunction with other diagnostic information such as ECG, clinical observations and information, and patientsymptoms to aid in the diagnosis of [place]. HEPATIC FUNCTION [id number] 14:47:09 Test Item Value Reference Range Interpretation [...] = 15 U/L 5-34 353) ALT (SGPT) (RIZWANA) (test code = 15 U/L 6-55 347) Manager Welding ID - ADMINPOCT-GLUCOSE [id number] 14:38:03 Test Item Value Reference Range Interpretation Comments POC-GLUCOSE METER 123 mg/dL 70-110 H : TESTED A T [facility] 6720 (RIZ[place]) (test code = [place], 1538) [address]: Manager Welding/Techni shad ID = [id number] for Ph am, Sharmin (Kendra) [id number] 14:34:20 Test Item Value Reference Range Interpretation Comments PARTIAL THROMBOPLASTIN TIME 27.6 seconds 22.5-36.0 (RIZWANA) (test code = 760) PROTHROMBIN TIME/[id number] 14:33:40 Test Item Value Reference Range Interpretation Comments PROTIME (RIZWANA) (test code = 14.1 seconds 11.9-14.2 759) INR (RIZWANA) (test code = 370) 1.16 <=5.90 RECOMMENDED COUMADIN/WARFARIN INR THERAPY RANGESSTANDARD DOSE: 2.0 - 3.0 Includes: PROPHYLAXIS for venous thrombosis, systemic embolization; TREATMENT for venous thrombosis and/or pulmonary embolus.HIGH RISK: Target INR is 2.5-3.5 for patients with mechanical heart valves.
[2023-01-17 19:26] LABS: Hematocrit 33.5 % (36.0-45.0); Lymphocytes % 26.2 % (15.3-44.8); MCV 87.3 fL (80-100); MPV 8.5 fL (7.6-11.3); Platelets 211 thou/uL (152-406); RBC Red Blood Cell Count 3.83 M/uL (3.86-4.86)
[2023-01-17 19:32] LABS: Protime INR 0.95
[2023-01-17 19:51] LABS: ALT/SGPT 21 U/L (13-56); AST/SGOT 10 U/L (15-37); Albumin 3.2 g/dL (3.4-5.0); Alkaline Phosphatase 105 U/L (45-117); BUN Blood Urea Nitrogen 25 mg/dL (7-18); Bicarbonate 24 mEq/L (21-32); Bilirubin Total 0.2 mg/dL (0.2-1.0); Glomerular Filtration Rate 29 ml/min (=/>90); Glucose Level 109 mg/dL (74-106); Magnesium 2.3 mg/dL (1.6-2.4); NT PRO-BNP 756 pg/mL (<450); Potassium 4.2 mEq/L (3.5-5.1); Protein, Total 7.5 g/dL (6.4-8.2); Sodium Level 139 mEq/L (136-145); Troponin High Sensitivity 29.1 pg/mL (<58.9)
[2023-01-17] MEDS ORDERED: ACETAMINOPHEN 500 MG TAB ONE (19:52)
[2023-01-17] MEDS ORDERED: METOCLOPRAMIDE 10 MG/2mL INJ ONE (19:52)
--- NOTE | 2023-01-17 19:54 | RAD REPORT ---
EXAM DESCRIPTION: CT - Head Brain Wo Cont - 01/17/2023 7:33 pm CLINICAL HISTORY: Alteration of awareness/confusion COMPARISON: November 2022 TECHNIQUE: Computed axial tomography of the head was obtained. IV contrast was not requested. All CT scans are performed using dose optimization technique as appropriate and may include automated exposure control or mA/KV adjustment according to patient size. FINDINGS: An intracranial bleed is not seen The ventricles are normal in caliber No extra-axial fluid collection is noted. Mild to moderate low-density areas within periventricular, deep and subcortical white matter likely r epresent ischemic changes secondary to small vessel disease. Fluid within the sinuses/ mastoids is not seen. IMPRESSION: No acute intracranial abnormality is seen If patient's symptoms persist MRI of the brain would be recommended
--- NOTE | 2023-01-17 20:15 | RAD REPORT ---
EXAM DESCRIPTION: Luis Eduardo Single View01/17/2023 8:07 pm CLINICAL HISTORY: Chest pain COMPARISON: none FINDINGS: Mild bilateral interstitial lung opacities Heart is mildly enlarged IMPRESSION: These findings probably indicate mild CHF
[2023-01-17 20:35] LABS: Bilirubin Direct < 0.1 mg/dL (0-0.2); Bilirubin Indirect, Calculated ND mg/dL (0.2-0.8)
[2023-01-17 22:48] LABS: Specific Gravity 1.013 (1.005-1.030); Urine Bacteria None Seen /HPF (<20); Urine Bilirubin NEGATIVE (Negative); Urine Blood Negative (Negative); Urine Clarity Turbid (Clear); Urine Color Light-Yellow (Yellow); Urine Glucose NEGATIVE (Negative); Urine Mucus Slight /HPF (None Seen); Urine Protein TRACE (Negative); Urine RBC <5 /HPF (None Seen); Urine Urobilinogen Normal (Normal); Urine pH 6.5 (5.0-7.0)
[2023-01-17] MEDS ORDERED: ACETAMINOPHEN 325 MG TABLET PO PRN (23:50)
[2023-01-17] MEDS ORDERED: ONDANSETRON 4 MG/2 ML VIAL IV PRN (23:50)
--- NOTE | 2023-01-17 23:52 | EDPHYS ---
Physician Documentation [facility] Name: Lashell Mathur Age: 87 yrs Sex: Female : 1935 Arrival Date: 01/17/2023 Time: 18:55 Bed 2 Private MD: ED Physician Josué Squires HPI: 01/17 19:15 This 87 yrs old Female presents to ER via Unassigned with complaints of sp4 Doesn't Feel Right. 20:45 87-year-old female with past medical history of chronic kidney disease, vertigo, sp4 hypertension, UTIs, presents with acute onset of generalized weakness, headache and confusion. Full history is not possible secondary to patient's confusion on arrival. Patient's relative states he found her at home confused 30 minutes prior to arrival. Patient seems to be having persistent complained about headaches.. Historical: - Allergies: 19:21 No Known Allergies; nj1 - PMHx: 19:21 Hypertensive disorder; Aneurysm; nj1 - Immunization history:: Client reports having NOT received the Covid vaccine. - Social history:: Smoking status: Patient denies any tobacco usage or history of. - Family history:: not pertinent. ROS: 20:45 Constitutional: Negative for fever, chills, and weight loss, positive generalized sp4 weakness and acute confusion Eyes: Negative for injury, pain, redness, and discharge, ENT: Negative for injury, pain, and discharge, Neck: Negative for injury, pain, and swelling, Cardiovascular: Negative for chest pain, palpitations, and edema, Respiratory: Negative for shortness of breath, cough, wheezing, and pleuritic chest pain, 20:45 All other systems are negative, 20:45 Unable to obtain ROS due to altered mental status, sp4 Exam: 20:45 Constitutional: This is a well developed, well nourished patient who is awake, alert, sp4 comfortable appearing female, confused, alert and oriented to self 1 Head/Face: Normocephalic, atraumatic. Eyes: Pupils equal round and reactive to light, extra-ocular motions intact. Lids and lashes normal. Conjunctiva and sclera are not injected. Cornea within normal limits. Periorbital areas with no swelling, redness, or edema. ENT: Nares patent. No nasal discharge, no septal abnormalities noted. Tympanic membranes are normal and external auditory canals are clear. Oropharynx with no redness, swelling, or masses, exudates, or evidence of obstruction, uvula midline. Mucous membranes moist. Neck: Trachea midline, no thyromegaly or masses palpated, and no cervical lymphadenopathy. Supple, full range of motion without nuchal rigidity, or vertebral point tenderness. Chest/axilla: Normal chest wall appearance and motion. Nontender with no deformity. No lesions are appreciated. Cardiovascular: Regular rate and rhythm with a normal S1 and S2. No gallops, murmurs, or rubs. Normal PMI, no JVD. No pulse deficits. Respiratory: Lungs have equal breath sounds bilaterally, clear to auscultation and percussion. No rales, rhonchi or wheezes noted. No increased work of breathing, no retractions or nasal flaring. Abdomen/GI: Soft, non-tender, with normal bowel sounds. No distension or tympany. No guarding or rebound. No evidence of tenderness throughout. Back: No spinal tenderness. No costovertebral tenderness. Skin: Warm, dry with normal turgor. Normal color with no rashes, no lesions, and no evidence of cellulitis. MS/ Extremity: Pulses equal, no cyanosis. Neurovascular intact. Full, normal range of motion. Neuro: Awake and alert, GCS 14, oriented to self 1 . cranial nerves II-XII grossly intact. Motor strength 5/5 in all extremities. Sensory grossly intact. 20:58 ECG was reviewed by the Attending Physician. EKG time 1913, there is normal sinus sp4 rhythm no ST elevation or depression no ectopy. Vital Signs: 19:02 BP 184 / 71; Pulse 78; Resp 18; Temp 97.8; Pulse Ox 100% on R/A; Weight 49.9 kg; Height nj1 5 ft. 4 in. ; 19:15 BP 160 / 69; Pulse 78; Resp 16; Pulse Ox 98% on R/A; km8 19:37 BP 141 / 64; Pulse 77; Resp 16 S; Pulse Ox 97% on R/A; km8 19:45 BP 134 / 66; Pulse 74; Resp 16 S; Pulse Ox 97% on R/A; km8 22:06 BP 148 / 78; Pulse 78; Resp 19 S; Pulse Ox 99% on R/A; km8 22:15 BP 149 / 77; Pulse 78; Resp 18 S; Pulse Ox 99% on R/A; km8 22:30 BP 139 / 68; Pulse 71; Resp 14; Pulse Ox 98% on R/A; km8 22:45 BP 135 / 72; Pulse 67; Resp 14 S; Pulse Ox 98% on R/A; km8 23:00 BP 145 / 67; Pulse 64; Resp 12 S; Pulse Ox 99% on R/A; km8 23:30 BP 146 / 68; Pulse 66; Resp 14 S; Pulse Ox 98% on R/A; km8 01/18 00:00 BP 143 / 68; Pulse 63; Resp 12 S; Pulse Ox 97% on R/A; km8 00:30 BP 143 / 66; Pulse 68; Resp 16 S; Pulse Ox 99% on R/A; km8 01:00 BP 136 / 64; Pulse 67; Resp 16 S; Pulse Ox 97% on R/A; km8 01/17 19:02 Body Mass Index 18.88 (49.90 kg, 162.56 cm) nj1 MDM: 01/17 19:06 Patient medically screened. sp4 23:47 ED course: Chest X ray - EXAM DESCRIPTION: Luis Eduardo Single View01/17/2023 8:07 pm sp4 CLINICAL HISTORY: Chest pain COMPARISON: none FINDINGS: Mild bilateral interstitial lung opacities Heart is mildly enlarged IMPRESSION: These findings probably indicate mild CHF. ED course: CT - TECHNIQUE: Computed axial tomography of the head was obtained. IV contrast was not requested. All CT scans are performed using dose optimization technique as appropriate and may include automated exposure control or mA/KV adjustment according to patient size. FINDINGS: An intracranial bleed is not seen The ventricles are normal in caliber No extra-axial fluid collection is noted. Mild to moderate low-density areas within periventricular, deep and subcortical white matter likely represent ischemic changes secondary to small vessel disease. Fluid within the sinuses/ mastoids is not seen. IMPRESSION: No acute intracranial abnormality is seen If patient's symptoms persist MRI of the brain would be recommended. 23:49 Differential Diagnosis altered mental status, sepsis, flu. Data reviewed: vital signs. sp4 Data reviewed: nurses notes, old medical records, lab test result(s), EKG, radiologic studies, CT scan, plain films. Consideration of Admission/Observation Patient was admitted/placed on observation. Escalation of care including admission/observation considered. Management of patient was discussed with the following: Hospitalist: Alex COLBERT . ED course: Patient has mild acute renal insufficiency on chronic kidney disease, also mild UTI which may contribute to confusion and generalized weakness. Will give IV Rocephin we will request admission for observation.. 01/17 19:06 Order name: Basic Metabolic Panel; Complete Time: 20:44 [facility] 01/17 19:06 Order name: CBC with Diff; Complete Time: 20:44 [facility] 01/17 19:06 Order name: LFT's; Complete Time: 20:44 4 01/17 19:06 Order name: Magnesium; Complete Time: 20:44 [facility] 01/17 19:06 Order name: NT PRO-BNP; Complete Time: 20:44 [facility] 01/17 19:06 Order name: PT-INR; Complete Time: 20:44 [facility] 01/17 19:06 Order name: Troponin HS; Complete Time: 20:44 [facility] 01/17 19:14 Order name: COVID-19 SARS RT PCR; Complete Time: 20:44 [facility] 01/17 19:14 Order name: Influenza Screen (a \T\ B); Complete Time: 20:44 [facility] 01/17 19:14 Order name: Urinalysis W/Microscopic; Complete Time: 23:44 [facility] 01/17 19:14 Order name: Blood Culture Adult (2) [facility] 01/17 19:14 Order name: CRP; Complete Time: 20:44 [facility] 01/17 19:14 Order name: Procalcitonin; Complete Time: 21:19 [facility] 01/17 22:54 Order name: Urine Culture [facility] 01/17 23:59 Order name: Basic Metabolic Panel [facility] 01/17 23:59 Order name: Basic Metabolic Panel [facility] 01/17 19:06 Order name: XRAY Chest (1 view); Complete Time: 20:44 [facility] 01/17 19:06 Order name: CT Head Brain wo Cont; Complete Time: 20:44 [facility] 01/17 19:06 Order name: EKG; Complete Time: 19:07 [facility] 01/17 19:06 Order name: Cardiac monitoring; Complete Time: 19:22 [facility] 01/17 19:06 Order name: EKG - Nurse/Tech; Complete Time: 19:14 [facility] 01/17 19:06 Order name: IV Saline Lock; Complete Time: 19: sp4 01/17 19:06 Order name: Labs collected and sent; Complete Time: 19: sp4 01/17 19:06 Order name: O2 Per Protocol; Complete Time: 19: sp4 01/17 19:06 Order name: O2 Sat Monitoring; Complete Time: 19: sp4 EC:58 Rate is 65 beats/min. Rhythm is regular, Normal Sinus Rhythm. QRS [place] is Normal. DC sp4 interval is normal. QRS interval is normal. QT interval is normal. No Q waves. T waves are Normal. No ST changes noted. Clinical impression: Normal ECG. Interpreted by me. Administered Medications: 19:45 Drug: Acetaminophen PO 500 mg PO once Route: PO; [facility] 22:23 Follow up: Response: No adverse reaction 19:45 Drug: metoCLOPramide IVP 10 mg IVP once; over 1 to 2 minutes Route: IVP; Site: left [facility] antecubital; 22:23 Follow up: Response: No adverse reaction [facility] 01/18 00:23 Drug: Rocephin - Rocephin (cefTRIAXone) IVPB 1 grams IVPB once over 30 mins; (mix in 50 km8 mL NS) Route: IVPB; Infused Over: 30 mins; Site: left antecubital; 00:54 Follow up: Response: No adverse reaction; IV Status: Completed infusion; IV Intake: 03swib4 Disposition Summary: 01/17/23 23:51 Hospitalization Ordered Notes: Hospitalization Status: Observation sp4 Provider: Jose Francisco Johnson sp4 [facility] sp[facility] Condition: Stable sp4 Problem: new sp4 Symptoms: have improved sp4 Bed/Room Type: Standard sp4 Room Assignment: 406(01/18/23 00:48) eb1 Diagnosis - UTI/ Urinary tract infection, site not specified sp4 - Acute hypoactive delirium, acute encephalopathy, acute on chronic renal sp4 insufficiency, and acute UTI Forms: - Medication Reconciliation Form sp4 - SBAR form sp4 - Leadership Thank You Letter sp4 Signatures: Dispatcher [employer] Rohith Rangel RN RN jb4 Sarah Abbott RN RN eb1 Josué Squires MD MD sp4 Selina Bianchi RN RN nj1 Jessica Dyer RN RN km8 Corrections: (The following items were deleted from the chart) 00:48 01/17 23:51 [email or web address] [email or web address]
--- NOTE | 2023-01-17 23:52 | ER ---
Nurse's Notes [facility] [place] Name: Lashell Mathur Age: 87 yrs Sex: Female : 1935 Arrival Date: 01/17/2023 Time: 18:55 Bed 2 Private MD: Diagnosis: UTI/ Urinary tract infection, site not specified;Acute hypoactive delirium, acute encephalopathy, acute on chronic renal insufficiency, and acute UTI Presentation: 01/17 19:02 Chief complaint: Patient's son or daughter states: Confusion. He got home about 30 nj1 minutes ago, his mother was complaining asking to be taken to a doctor. Pt rocking self back and forth stating repeatedly "my head". 19:02 Coronavirus screen: Vaccine status: Patient reports being unvaccinated. Ebola Screen: nj1 Patient denies travel to an Ebola-affected area in the 21 days before illness onset. Initial Sepsis Screen: Does the patient meet any 2 criteria? Altered Mental Status. No. Patient's initial sepsis screen is negative. Does the patient have a suspected source of infection? No. Patient's initial sepsis screen is negative. Risk Assessment: Do you want to hurt yourself or someone else? Unable to obtain. Onset of symptoms was January 17, 2023 at 18:30. 19:02 Method Of Arrival: Wheelchair nj1 19:02 Acuity: TERESA 2 nj1 Historical: - Allergies: 19:21 No Known Allergies; nj1 - PMHx: 19:21 Hypertensive disorder; Aneurysm; nj1 - Immunization history:: Client reports having NOT received the Covid vaccine. - Social history:: Smoking status: Patient denies any tobacco usage or history of. - Family history:: not pertinent. Screenin:26 [facility] ED Fall Risk Assessment (Adult) History of falling in the last 3 months, km8 including since admission Yes- single mechanical fall (1 pt) Confusion or Disorientation No (0 pts) Intoxicated or Sedated No (0 pts) Impaired Gait No (0 pts) Mobility Assist Device Used No (0 pt) Altered Elimination No (0 pt) Score/Fall Risk Level 0 - 2 = Low Risk Oriented to surroundings, Maintained a safe environment, Educated pt \\T\\ family on fall prevention, incl call for assistance when getting out of bed, Assessed \\T\\ reinforced patient's understanding of fall precautions. Abuse screen: Denies threats or abuse. Denies injuries from another. Nutritional screening: No deficits noted. Tuberculosis screening: No symptoms or risk factors identified. Assessment: 19:26 General: Appears in no apparent distress. comfortable, Behavior is calm, cooperative. km8 Pain: Complains of pain in head Unable to use pain scale. Does not appear to understand pain scale. Neuro: Kimble Agitation-Sedation Scale (RASS): 0 - Alert and Calm Level of Consciousness is awake, alert, obeys commands, confused, Oriented to person, place, time. Cardiovascular: Denies chest pain, shortness of breath, Capillary refill < 3 seconds Patient's skin is warm and dry. Respiratory: Airway is patent Respiratory effort is even, unlabored, Respiratory pattern is regular, symmetrical, Denies cough, shortness of breath. GI: No deficits noted. No signs and/or symptoms were reported involving the gastrointestinal system. : No deficits noted. No signs and/or symptoms were reported regarding the genitourinary system. EENT: No deficits noted. No signs and/or symptoms were reported regarding the EENT system. Derm: No signs and/or symptoms reported regarding the dermatologic system. Skin is intact, is fragile, Skin is dry, flakey Skin is normal, Skin temperature is warm. Musculoskeletal: Range of motion: intact in all extremities. 21:47 Reassessment: Patient appears in no apparent distress at this time. No changes from km8 previously documented assessment. Patient and/or family updated on plan of care and expected duration. Pain level reassessed. Patient is alert, oriented x 3, equal unlabored respirations, skin warm/dry/pink. 01/18 00:05 Reassessment: Patient appears in no apparent distress at this time. No changes from km8 previously documented assessment. Patient and/or family updated on plan of care and expected duration. Pain level reassessed. Patient is alert, oriented x 3, equal unlabored respirations, skin warm/dry/pink. Vital Signs: 01/17 19:02 BP 184 / 71; Pulse 78; Resp 18; Temp 97.8; Pulse Ox 100% on R/A; Weight 49.9 kg; Height nj1 5 ft. 4 in. ; 19:15 BP 160 / 69; Pulse 78; Resp 16; Pulse Ox 98% on R/A; km8 19:37 BP 141 / 64; Pulse 77; Resp 16 S; Pulse Ox 97% on R/A; km8 19:45 BP 134 / 66; Pulse 74; Resp 16 S; Pulse Ox 97% on R/A; km8 22:06 BP 148 / 78; Pulse 78; Resp 19 S; Pulse Ox 99% on R/A; km8 22:15 BP 149 / 77; Pulse 78; Resp 18 S; Pulse Ox 99% on R/A; km8 22:30 BP 139 / 68; Pulse 71; Resp 14; Pulse Ox 98% on R/A; km8 22:45 BP 135 / 72; Pulse 67; Resp 14 S; Pulse Ox 98% on R/A; km8 23:00 BP 145 / 67; Pulse 64; Resp 12 S; Pulse Ox 99% on R/A; km8 23:30 BP 146 / 68; Pulse 66; Resp 14 S; Pulse Ox 98% on R/A; km8 01/18 00:00 BP 143 / 68; Pulse 63; Resp 12 S; Pulse Ox 97% on R/A; km8 00:30 BP 143 / 66; Pulse 68; Resp 16 S; Pulse Ox 99% on R/A; km8 01:00 BP 136 / 64; Pulse 67; Resp 16 S; Pulse Ox 97% on R/A; km8 01/17 19:02 Body Mass Index 18.88 (49.90 kg, 162.56 cm) [facility] ED Course: 01/17 18:58 Patient arrived in ED. im 19:06 Josué Squires MD is Attending Physician. sp4 19:06 Jessica Dyer RN is Primary Nurse. km8 19:10 Inserted saline lock: 20 gauge in left antecubital area, using aseptic technique. Blood km8 collected. Patient maintains SpO2 saturation greater than 95% on room air. 19:21 Triage completed. nj1 19:22 Arm band placed on. nj1 19:26 Patient has correct armband on for positive identification. Placed in gown. Bed in low km8 position. Call light in reach. Side rails up X2. Client placed on continuous cardiac and pulse oximetry monitoring. NIBP monitoring applied. nurse monitoring on. Door closed. Noise minimized. Warm blanket given. 19:26 Blood Culture Adult (2) Sent. km8 19:26 Influenza Screen (a \\T\\ B) Sent. km8 19:26 COVID-19 SARS RT PCR Sent. km8 19:26 Basic Metabolic Panel Sent. km8 19:26 CBC with Diff Sent. km8 19:26 LFT's Sent. km8 19:26 Magnesium Sent. km8 19:26 NT PRO-BNP Sent. km8 19:26 PT-INR Sent. km8 19:26 Troponin HS Sent. km8 19:26 Procalcitonin Sent. km8 19:26 CRP Sent. km8 19:34 CT Head Brain wo Cont In Process Unspecified. EDMS 20:09 XRAY Chest (1 view) In Process Unspecified. EDMS 22:23 Urinalysis W/Microscopic Sent. km8 23:50 Jose Francisco Johnson MD is Hospitalizing Provider. sp4 01/18 00:55 No provider procedures requiring assistance completed. km8 01:08 Provided Education on: admission process. km8 01:08 Patient admitted, IV remains in place. km8 Administered Medications: 01/17 19:45 Drug: Acetaminophen PO 500 mg PO once Route: PO; jb4 22:23 Follow up: Response: No adverse reaction km8 19:45 Drug: metoCLOPramide IVP 10 mg IVP once; over 1 to 2 minutes Route: IVP; Site: left [facility] antecubital; 22:23 Follow up: Response: No adverse reaction km8 01/18 00:23 Drug: Rocephin - Rocephin (cefTRIAXone) IVPB 1 grams IVPB once over 30 mins; (mix in 50 km8 mL NS) Route: IVPB; Infused Over: 30 mins; Site: left antecubital; 00:54 Follow up: Response: No adverse reaction; IV Status: Completed infusion; IV Intake: [id number] Medication: 00:54 VIS not applicable for this client. km8 Intake: 00:54 IV: 50ml; Total: 50ml. km8 Outcome: 01/17 23:51 Decision to Hospitalize by Provider. sp4 01/18 01:08 Admitted to Med/surg accompanied by nurse, via wheelchair, room 406, with chart, Report km8 called to Shanelle Condition: stable Discharge instructions given to patient, Instructed on the need for transfer, Demonstrated understanding of instructions, 01:30 Patient left the ED. km8 Signatures: Dispatcher [facility] Rohith Rangel RN RN jb4 Josué Squires MD MD sp4 Selina Bianchi RN RN nj1 Daniela Sabillon Katie, RN RN km8 Corrections: (The following items were deleted from the chart) 01/17 19:22 19:02 Coronavirus screen: Vaccine status: nj1 nj
--- NOTE | 2023-01-18 00:20 | P.HP ---
Certification for Inpatient Patient admitted to: Observation With expected LOS: <2 Midnights Patient will require the following post-hospital care: None Practitioner: I am a practitioner with admitting privileges, knowledge of patient current condition, hospital course, and medical plan of care. Services: Services provided to patient in accordance with Admission requirements found in Title 42 Section 412.3 of the Code of Federal Regulations Patient History Date of Service: 01/18/23 Reason for admission: Altered mental status, urinary tract infection. History of Present Illness: 87-year-old female patient who has a medical history significant for hypertension, advanced age, hyperlipidemia who was brought to the emergency room for complaint of not feeling good and being altered. There was no report of falls, fever, chills, recent changes to medication. She was worked up in the emergency room with imaging studies that revealed no intracranial pathology however her UA was concerning for evolving urinary tract infection. She was also found to have slight elevated blood pressure with systolic in the 180s. She was asked to be admitted on observation secondary to altered mentation. Empiric antibiotic therapy of Rocephin was given after urine and blood cultures were taken. Allergies No Known Allergies Allergy (Verified 07/12/21 23:20) Home Medications: Amlodipine [Norvasc*] 5 mg PO DAILY #30 tab 07/14/21 Metoprolol Tartrate [Lopressor*] 25 mg PO BID 6AM 6PM #60 tab 07/14/21 - Past Medical/Surgical History Diabetic: No -: HTN -: right ovary removed Psychosocial/ Personal History: Patient is visiting from [place]. - Family History Father -: Heart disease - Social History Alcohol use: No CD- Drugs: No Caffeine use: No Review of Systems General: Malaise Eyes: Unremarkable ENT: Unremarkable Respiratory: Unremarkable Cardiovascular: Unremarkable Gastrointestinal: Unremarkable Genitourinary: Unremarkable Integumentary: Unremarkable Neurological: Unremarkable Physical Examination - Physical Exam General: Alert HEENT: Atraumatic, Normocephalic Neck: Supple Respiratory: Normal air movement Cardiovascular: Regular rate/rhythm, Normal S1 S2 Gastrointestinal: Soft and benign Musculoskeletal: No swelling Neurological: Normal speech, Normal strength at 5/5 x4 extr - Studies Laboratory Data (last 24 hrs) 01/17/23 01/17/23 01/17/23 19:11 19:11 19:11 WBC 7.70 Hgb 11.2 L Hct 33.5 L Plt Count 211 PT 10.5 INR 0.95 Sodium 139 Potassium 4.2 BUN 25 H Creatinine 1.68 H Glucose 109 H Magnesium 2.3 Total Bilirubin 0.2 AST 10 L ALT 21 Alkaline Phosphatase 105 Microbiology Data (last 24 hrs): 01/17/23 19:19 Nasopharnyx Influenza Type A Antigen Screen - Final 01/17/23 19:19 Nasopharnyx Influenza Type B Antigen Screen - Final Assessment and Plan - Plan Toxic-metabolic encephalopathy: Deemed secondary to above urinary tract infection. No significant found concerns for hypertensive encephalopathy at this point. Blood and urine cultures were taken and empiric antibiotic therapy Rocephin was started. We will monitor mentation closely. UTI: UA significantly concerning. We will continue routine monitoring of cultures for adjustment of antibiotic therapy. Rocephin to be continued from UTI management pending finalization of cultures. Hypertension: No significant concerns for hypertensive encephalopathy at this time. We will continue routine monitoring of vitals per unit protocol and oral antihypertensive medications as prescribed outpatient Prophylaxis: Lovenox for DVT prophylaxis. CODE STATUS: Full code Disposition: We will manage her altered mental status/UTI and discharge her when she is deemed clinically stable. Discharge Plan: Home - Advance Directives Does patient have a Living Will: No Does patient have a Durable POA for Healthcare: No
[2023-01-18] MEDS ORDERED: CEFTRIAXONE 1000 MG/VIAL ONE (00:25)
[2023-01-18] MEDS ORDERED: NA CHLORIDE 0.9% 50 ML ONE (00:25)
[2023-01-18] MEDS: NA CHLORIDE 0.9% 1,000 ML IV SCH ×2 (01:49→13:59)
[2023-01-18 02:05] VITALS: BMI 18.8
[2023-01-18 06:48] LABS: Potassium 3.6 mEq/L (3.5-5.1)
[2023-01-18] MEDS ORDERED: ENOXAPARIN 40 MG/0.4 ML SQ SCH (09:00)
[2023-01-18] MEDS: ENOXAPARIN 30 MG/0.3 ML SQ SCH (09:03)
--- NOTE | 2023-01-18 12:24 | P.PN ---
Date of Service: 01/18/23 Subjective: Awake, alert, oriented x1 Son at bedside Denies any specific complaints ROS: 10 point ROS as noted above, otherwise negative Physical exam GEN: Alert, oriented x1, NAD HEENT: Normal conjunctiva, sclera anicteric CV: Regular rate and rhythm, no edema Pulm: Nonlabored respirations on room air ABD: Soft, nontender, nondistended MSK: No joint tenderness Integumentary: No rashes Neuro: Normal speech, normal affect Vitals reviewed Problem List Metabolic encephalopathy secondary to UTI Hypertension Dementia Metabolic encephalopathy secondary to UTI Deemed secondary to above urinary tract infection. Follow blood and urine cultures, on empiric Rocephin currently. Hypertension Continue home meds, monitor BP Dementia Now close to baseline per son PT and foster care social worker consult may benefit with home health/PT Prophylaxis: Lovenox . CODE STATUS: Full code Disposition: We will manage her altered mental status/UTI and discharge her when she is deemed clinically stable. Time Spent Managing Pts Care (In Minutes): 35
[2023-01-18] MEDS ORDERED: HYDRALAZINE HCL 20 MG/ML VIAL IV PRN (16:05)
[2023-01-18] MEDS ORDERED: carvediloL 25 MG TAB PO ONE (16:14)
[2023-01-18] MEDS: NIFEDIPINE XL 60 MG TABLET PO SCH (16:21)
[2023-01-18] MEDS ORDERED: carvediloL 25 MG TAB ONE ×2 (16:42→20:25)
[2023-01-18] MEDS ORDERED: NIFEDIPINE XL 90 MG TABLET PO ONE (16:43)
[2023-01-18 17:08] VITALS: TEMP 97.1
[2023-01-18] MEDS ORDERED: HYDRALAZINE HCL 20 MG/ML VIAL ONE (17:26)
[2023-01-18 20:08] VITALS: O2SAT 98
[2023-01-18] MEDS: carvediloL 25 MG TAB PO SCH (20:17)
[2023-01-18] MEDS ORDERED: CEFTRIAXONE 1,000 MG in NA CHLORIDE 0.9% 50 ML IVPB SCH (21:00)
[2023-01-19] MEDS: NA CHLORIDE 0.9% 1,000 ML IV SCH (01:32)
[2023-01-19] MEDS ORDERED: carvediloL 25 MG TAB PO SCH (06:00)
[2023-01-19] MEDS ORDERED: carvediloL 25 MG TAB ONE (07:27)
--- NOTE | 2023-01-19 07:53 | EKG ---
Test Date: 2023-01-17 Test Time: 19:14:16 Motor Equipment Commanding Officer: ERIKA MEASUREMENT RESULTS: Intervals: Rate: 65 OK: QRSD: 68 QT: 434 QTc: 451 Vona: P: OK: QRS: 63 T: 84 INTERPRETIVE STATEMENTS: Junctional rhythm Septal infarct, age undetermined Abnormal ECG Compared to ECG 12/08/2022 18:16:11 Junctional rhythm now present Sinus rhythm no longer present Myocardial infarct finding still present Electronically Signed On 01-19-23 07:51:08 CDT by Kody Murrieta
[2023-01-19] MEDS: NIFEDIPINE XL 60 MG TABLET PO SCH (09:00)
[2023-01-19] MEDS ORDERED: NIFEDIPINE XL 30 MG TABLET PO SCH (09:00)
[2023-01-19] MEDS: carvediloL 25 MG TAB PO SCH (09:17)
[2023-01-19] MEDS: ENOXAPARIN 30 MG/0.3 ML SQ SCH (09:17)
[2023-01-19 09:25] LABS: Absolute Lymphocytes (CBC) 1.2 K/uL (0.7-4.9); Lymphocytes % 13.9 % (15.3-44.8); MCV 87.8 fL (80-100); MPV 8.3 fL (7.6-11.3); Platelets 247 thou/uL (152-406); RBC Red Blood Cell Count 4.32 M/uL (3.86-4.86)
[2023-01-19] MEDS ORDERED: NIFEDIPINE XL 60 MG TABLET PO SCH (09:30)
[2023-01-19 09:37] LABS: Potassium 3.9 mEq/L (3.5-5.1)
--- NOTE | 2023-01-19 12:52 | P.DS ---
Admission Date: 01/17/23 Discharge Date: 01/19/23 Disposition: ROUTINE DISCHARGE Discharge Condition: FAIR Reason for Admission: Altered mental status, urinary tract infection. - Problems (1) Chronic kidney disease, stage III (moderate) Status: Acute (2) UTI (urinary tract infection) Status: Acute Qualifiers: Urinary tract infection type: acute cystitis Hematuria presence: without hematuria Qualified Code(s): N30.00 - Acute cystitis without hematuria (3) Hypertension Status: Chronic Qualifiers: Hypertension type: primary hypertension Qualified Code(s): I10 - Essential (primary) hypertension Hospital Course: Lashell Mathur is a pleasant 87 year old female with a past medical history significant for hypertension, advanced age, and hyperlipidemia who was admitted to the [facility] on 01/17 for UTI. Lashell Mathur presented to the ED c/o altered mental status and not feeling well. While in the ED, CT head did not show any intracranial reason for her altered mental status but the UA was evident of a urinary tract infection. She tolerated IV Rocephin therapy, PO diet, and has been able to converse well. She is stable for dischrge home with home health. On 01/19/23, Lashell was seen on morning rounds and deemed medically stable for discharge. Lashell was discharged with instructions to schedule follow-up appointments with PCP. Lashell was provided prescription for omnicef. The patient and family members were given the opportunity to ask questions and reported no further questions. Furthermore, all questions were answered to the best of my ability. A copy of this discharge summary will be sent to the above providers to facilitate continuity of care. Today, I personally spent 55 minutes with Lashell, of which greater than 50% of the time was spent in patient education, counseling, and coordination of care as described above. Physical exam GEN: Alert, oriented x1, NAD HEENT: Normal conjunctiva, sclera anicteric CV: Regular rate and rhythm, no edema Pulm: Nonlabored respirations on room air ABD: Soft, nontender, nondistended MSK: No joint tenderness Integumentary: No rashes Neuro: Normal speech, normal affect Vital Signs/Physical Exam: Temp Pulse Resp BP Pulse Ox 97.1 F 62 17 152/73 H 98 01/19/23 08:00 01/19/23 09:26 01/19/23 08:00 01/19/23 09:26 01/19/23 08:00 Laboratory Data at Discharge: WBC 8.40 thou/uL (4.3-10.9) 01/19/23 09:07 Hgb 12.4 g/dL (12.0-15.0) 01/19/23 09:07 Hct 38.0 % (36.0-45.0) 01/19/23 09:07 Plt Count 247 thou/uL (152-406) 01/19/23 09:07 PT 10.5 SECONDS (9.5-12.5) 01/17/23 19:11 INR 0.95 01/17/23 19:11 Sodium 140 mEq/L (136-145) 01/19/23 09:07 Potassium 3.9 mEq/L (3.5-5.1) 01/19/23 09:07 BUN 13 mg/dL (7-18) 01/19/23 09:07 Creatinine 1.12 mg/dL (0.55-1.02) H 01/19/23 09:07 Glucose 132 mg/dL (74-106) H 01/19/23 09:07 Magnesium 2.3 mg/dL (1.6-2.4) 01/17/23 19:11 Total Bilirubin 0.2 mg/dL (0.2-1.0) 01/17/23 19:11 AST 10 U/L (15-37) L 01/17/23 19:11 ALT 21 U/L (13-56) 01/17/23 19:11 Alkaline Phosphatase 105 U/L (45-117) 01/17/23 19:11 Home Medications: Amlodipine [Norvasc*] 5 mg PO DAILY #30 tab 07/14/21 Metoprolol Tartrate [Lopressor*] 25 mg PO BID 6AM 6PM #60 tab 07/14/21 Cefdinir [Omnicef] 300 mg PO DAILY 7 Days #7 cap 01/19/23 New Medications: Cefdinir [Omnicef] 300 mg PO DAILY 7 Days #7 cap Physician Discharge Instructions: 1. Please call and schedule a follow-up appointment with your PCP in 3-5 days - Please follow-up with your PCP for medication refills/adjustments 2. Continue home medications as previously prescribed 3. Fall risk, will need assistance while ambulating 4. Regular diet New medications: Omnicef 300 mg daily for 7 days Diet: Regular Activity: Fall risk, needs assistance Followup: NONE,NONE [Primary Care Provider] - 1 Week (make an appointment) Time spent managing pt's care (in minutes): 55
[2023-01-19] MEDS ORDERED: CEFDINIR 300 MG CAP PO SCH (13:00)
[2023-01-19 13:16] VITALS: BP 167/79
== END 2023-01-19 14:50 | disposition home health service (06) ==
LOC: ER 18:55 → ERHOLD 23:51 → 4TH 01-18 00:55
PROVIDERS: ADMIT Internal Medicine Nephrology; ATTEND Internal Medicine
DX: N30.00 Acute cystitis without hematuria (principal); G92.8 Other toxic encephalopathy; E78.5 Hyperlipidemia, unspecified; I12.9 Hypertensive chronic kidney disease with stage 1 through stage 4 chronic kidney disease, or unspecified chronic kidney disease; N18.30 Chronic kidney disease, stage 3 unspecified; F03.90 Unspecified dementia, unspecified severity, without behavioral disturbance, psychotic disturbance, mood disturbance, and anxiety; Z11.52 Encounter for screening for COVID-19
CPT/HCPCS: 36415; 70450; 71045; 80048; 80076; 81001; 83735; 83880; 84145; 84484; 85025; 85610; 86140; 87040; 87086; 87088; 87635; 87804; 93005; 96365; 96375; 97116; 97161; 97530; 99285; G0378; J0360; J0696; J1650; J2765; J7030

== ENCOUNTER 2023-08-02 11:01 | Emergency (ER) | payer OTHER ==
--- NOTE | 2023-08-02 12:14 | RAD REPORT ---
EXAM DESCRIPTION: RADChest Single View08/02/2023 12:05 pm CLINICAL HISTORY: MALAISE COMPARISON: Chest Single View dated 04/29/2023; Chest Single View dated 01/17/2023; Chest Single View dated 12/08/2022; Chest Single View dated 08/28/2022 TECHNIQUE: Portable AP view of the chest. FINDINGS: The lungs are clear. No pneumothorax or effusion. The cardiomediastinal contours are unre markable. IMPRESSION: No acute cardiopulmonary process.
[2023-08-02 12:45] LABS: Absolute Eosinophils 0.1 K/uL (0-0.5); Absolute Lymphocytes (CBC) 1.4 K/uL (0.7-4.9); Absolute Monocytes 0.8 K/uL (0.1-1.3); Absolute Neutrophil 6.2 K/uL (1.8-8.0); Basophils % 0.4 % (0-1.3); Eosinophils % 1.6 % (0-4.4); Hematocrit 38.6 % (36.0-45.0); Hemoglobin 12.2 g/dL (12.0-15.0); Lymphocytes % 16.2 % (15.3-44.8); MCH 27.9 pg (27.0-35.0); MCHC 31.6 g/dL (32.0-36.0); MCV 88.4 fL (80-100); MPV 8.7 fL (7.6-11.3); Monocytes % 9.2 % (3.3-12.3); Neutrophils % 72.6 % (41.7-73.7); Platelets 223 thou/uL (152-406); RBC Red Blood Cell Count 4.36 M/uL (3.86-4.86); Red Cell Distribution Width 16.3 % (12.1-15.2)
[2023-08-02 13:04] LABS: ALT/SGPT 20 U/L (13-56); Albumin 3.3 g/dL (3.4-5.0); Albumin/Globulin Ratio 0.8 (1.1-1.8); Alkaline Phosphatase 98 U/L (45-117); Anion Gap 9.9 mEq/L (5.0-15.0); BUN Blood Urea Nitrogen 20 mg/dL (7-18); Bicarbonate 26 mEq/L (21-32); Bilirubin Total 0.4 mg/dL (0.2-1.0); Globulin 4.3 g/dL (2.3-3.5); Glomerular Filtration Rate 35 ml/min (=/>90); Glucose Level 110 mg/dL (74-106); Lipase 44 U/L (13-75); NT PRO-BNP 1112 pg/mL (<450); Potassium 3.9 mEq/L (3.5-5.1); Protein, Total 7.6 g/dL (6.4-8.2); Sodium Level 139 mEq/L (136-145); Troponin High Sensitivity 28.9 pg/mL (<58.9)
[2023-08-02 13:06] LABS: AST/SGOT < 10 U/L (15-37)
[2023-08-02] MEDS ORDERED: HYDRALAZINE HCL 20 MG/ML VIAL ONE (13:55)
[2023-08-02 14:18] LABS: Specific Gravity 1.012 (1.005-1.030); Sqamous Epithelial None Seen /HPF (None Seen); Urine Bacteria <20 /HPF (<20); Urine Bilirubin NEGATIVE (Negative); Urine Blood Negative (Negative); Urine Clarity Clear (Clear); Urine Color Light-Yellow (Yellow); Urine Culture Reflex Order NOT NEEDED; Urine Glucose NEGATIVE (Negative); Urine Ketones NEGATIVE (Negative); Urine Microscopic Reflex YN ORDER UMIC; Urine Mucus Slight /HPF (None Seen); Urine Nitrite NEGATIVE (Negative); Urine Protein TRACE (Negative); Urine RBC <5 /HPF (None Seen); Urine Urobilinogen Normal (Normal); Urine WBC <5 /HPF (<5); Urine pH 6.5 (5.0-7.0)
[2023-08-02] MEDS ORDERED: MORPHINE 2 MG/ML SYR ONE (14:40)
[2023-08-02] MEDS ORDERED: LABETALOL 20 MG/4ML SYRINGE IV ONE (14:40)
[2023-08-02] MEDS ORDERED: ONDANSETRON 4 MG/2 ML VIAL ONE (14:40)
--- NOTE | 2023-08-02 15:06 | RAD REPORT ---
EXAM DESCRIPTION: CTAbdomen Pelvis Wo Contrast - 08/02/2023 2:38 pm CLINICAL HISTORY: ABD PAIN COMPARISON: Chest Single View dated 08/02/2023; Head C Spine Cap Wo Con dated 04/29/2023 TECHNIQUE: CT of the abdomen and pelvis was performed. All CT scans are performed using dose optimization technique as appropriate and may include automated exposure control or mA/KV adjustment according to patient size. FINDINGS: Lower chest: Coronary calcifications. Liver: Low-density liver lesions noted which are likely benign. Biliary: Question cholelithiasis. Stomach: No significant focal abnormality. Duodenum: No significant focal abnormality. Pancreas: No significant abnormality. Spleen: No significant abnormality. Adrenal: No suspicious lesions. Kidney/ureter: No hydronephrosis. Right nephrolithiasis. Retroperitoneum: No retroperitoneal adenopathy. Vascular: No aneurysm. Atherosclerosis . Bowel: Diverticulosis without diverticulitis.. Peritoneum: Mild ascites. Bladder: Grossly unremarkable. Reproductive: Abnormal pelvic mass which is not well appreciated. This may represent a complex fibroi d uterus. Bones: No acute fracture. Other: n/a IMPRESSION: No acute intra-abdominal or pelvic finding. Enlarged heterogeneous pelvic mass which is not well assessed and possibly an enlarged fibroid uterus . This is grossly similar to the prior CT from 04/29/2023. Nonemergent pelvic ultrasound could furthe r evaluate clinically indicated. . Mild ascites again noted.
--- NOTE | 2023-08-02 15:17 | ER ---
Nurse's Notes [facility] Name: Lashell Mathur Age: 87 yrs Sex: Female : 1935 Arrival Date: 08/02/2023 Time: 11:01 Bed 15 Private MD: Diagnosis: Dysuria;Lower abdominal pain, unspecified;Essential (primary) hypertension Presentation: 08/01 11:12 Chief complaint: Patient states: MALAISE AND DYSURIA SINCE LAST PM. Coronavirus screen: bp At this time, the client does not indicate any symptoms associated with coronavirus-19. Ebola Screen: No symptoms or risks identified at this time. Initial Sepsis Screen: Does the patient meet any 2 criteria? No. Patient's initial sepsis screen is negative. Does the patient have a suspected source of infection? No. Patient's initial sepsis screen is negative. Risk Assessment: Do you want to hurt yourself or someone else? Patient reports no desire to harm self or others. Onset of symptoms was August 02, 2023 at 02:00. 11:12 Method Of Arrival: Ambulatory bp 11:12 Acuity: TERESA 3 bp Triage Assessment: 11:13 General: Appears ill, unkempt, Behavior is cooperative, CONFUSED. Pain: Complains of bp pain in pelvis. Neuro: Level of Consciousness is obeys commands, confused, Oriented to person, AT BASELINE. : Reports burning with urination. Historical: - Allergies: 11:13 No Known Allergies; bp - PMHx: 11:13 Aneurysm; Hypertensive disorder; Dementia; bp - Immunization history:: Adult Immunizations up to date. - Infectious Disease History:: Denies. - Social history:: Smoking status: Patient denies any tobacco usage or history of. Screenin:04 [facility] ED Fall Risk Assessment (Adult) History of falling in the last 3 months, tl4 including since admission No falls in past 3 months (0 pts) Confusion or Disorientation No (0 pts) Intoxicated or Sedated No (0 pts) Impaired Gait No (0 pts) Mobility Assist Device Used No (0 pt) Altered Elimination No (0 pt) Score/Fall Risk Level 0 - 2 = Low Risk Oriented to surroundings, Maintained a safe environment, Educated pt \T\ family on fall prevention, incl call for assistance when getting out of bed, Assessed \T\ reinforced patient's understanding of fall precautions, Provided non-skid footwear, Hourly rounding (assess needs \T\ fall precautionary measures) done, Used ambulatory aids as needed (educated on \T\ assisted with), Used gait belt as appropriate. Abuse screen: Denies threats or abuse. Denies injuries from another. Nutritional screening: No deficits noted. Tuberculosis screening: No symptoms or risk factors identified. Assessment: 12:20 General: Appears in no apparent distress. Behavior is calm, cooperative. Pain: Denies tl4 pain. Neuro: Level of Consciousness is awake, alert, obeys commands, Oriented to person, place, Moves all extremities. Speech is normal, Facial symmetry appears normal. Cardiovascular: Capillary refill < 3 seconds Patient's skin is warm and dry. Respiratory: Airway is patent Respiratory effort is even, unlabored, Respiratory pattern is regular, symmetrical, Breath sounds are clear bilaterally. GI: No signs and/or symptoms were reported involving the gastrointestinal system. : No signs and/or symptoms were reported regarding the genitourinary system. EENT: No signs and/or symptoms were reported regarding the EENT system. Derm: No signs and/or symptoms reported regarding the dermatologic system. Musculoskeletal: No signs and/or symptoms reported regarding the musculoskeletal system. 13:15 Reassessment: No changes from previously documented assessment. Patient and/or family tl4 updated on plan of care and expected duration. Pain level reassessed. Patient is alert, oriented x 3, equal unlabored respirations, skin warm/dry/pink. 14:29 Reassessment: Patient and/or family updated on plan of care and expected duration. Pain tl4 level reassessed. Patient is alert, oriented x 3, equal unlabored respirations, skin warm/dry/pink. Pt now c/o right abdominal pain that radiates into her back. Provider Hadash aware. 15:15 Reassessment: No changes from previously documented assessment. Patient and/or family tl4 updated on plan of care and expected duration. Pain level reassessed. Patient is alert, oriented x 3, equal unlabored respirations, skin warm/dry/pink. Patient states feeling better. 15:40 Reassessment: No changes from previously documented assessment. Patient and/or family tl4 updated on plan of care and expected duration. Pain level reassessed. Patient is alert, oriented x 3, equal unlabored respirations, skin warm/dry/pink. Vital Signs: 11:12 BP 204 / 92; Pulse 103; Resp 16; Temp 97.8; Pulse Ox 97% ; bp 12:12 BP 203 / 98; Pulse 85; Resp 18; Pulse Ox 100% on R/A; Pain 0/10; tl4 12:30 BP 208 / 89; Pulse 83; Resp 18; Pulse Ox 100% on R/A; tl4 13:00 BP 209 / 91; Pulse 81; Resp 16; Pulse Ox 100% on R/A; Pain 0/10; tl4 13:30 BP 200 / 89; Pulse 94; Resp 20; Pulse Ox 100% ; tl4 14:00 BP 223 / 79; Pulse 100; Resp 20; Pulse Ox 100% on R/A; tl4 14:30 BP 198 / 93; Pulse 94; Resp 16; Pulse Ox 99% on R/A; tl4 15:00 BP 166 / 75; Pulse 89; Resp 18; Pulse Ox 100% on R/A; Pain 0/10; tl4 15:40 BP 155 / 70; Pulse 82; Resp 16; Temp 98.1(O); Pulse Ox 99% on R/A; Pain 0/10; tl4 12:12 Pain Scale: Adult tl4 13:00 Pain Scale: Adult tl4 15:00 Pain Scale: Adult tl4 15:40 Pain Scale: Adult tl4 ED Course: 11:04 Patient arrived in ED. mr 11:05 Tish Gardner, [employer] [facility] jh7 11:05 Jose Raul Prakash MD is Attending Physician. jh7 11:13 Triage completed. bp 11:13 Arm band placed on. bp 11:33 Cleaned of incontinence. new brief applied in lobby restroom. Small liquid BM noted in ll1 old brief. Tolerated well. Gait steady to room 15. 11:40 Patient placed in an exam room, on a stretcher. ll1 11:44 Door closed. Warm blanket given. Pillow given. ll1 11:47 Katt Ingram, RN is Primary Nurse. ph 12:00 Report given to ALICIA Tamez. ph 12:08 XRAY Chest (1 view) In Process Unspecified. EDMS 12:20 No provider procedures requiring assistance completed. Initial lab(s) drawn, by me, tl4 sent to lab. EKG done, by ED staff, reviewed by Tish LAFLEUR. Inserted saline lock: 22 gauge in right antecubital area, using aseptic technique. Blood collected. 12:51 PROBNP Sent. tl4 12:51 Troponin High Sensitivity Sent. tl4 12:51 CMP Sent. tl4 12:51 Lipase Sent. tl4 12:51 Urinalysis w/ reflexes Sent. tl4 13:04 Patient has correct armband on for positive identification. Placed in gown. Bed in low tl4 position. Call light in reach. Side rails up X2. Adult w/ patient. Provided Education on: ED process, call toro use. Client placed on continuous cardiac and pulse oximetry monitoring. NIBP monitoring applied. potline monitor on. Noise minimized. Lights dimmed. Warm blanket given. 14:14 Warm blanket given. tl4 14:27 Urine collected: straight cath specimen, clear. Straight cath inserted, using sterile tl4 technique, 14 Fr. Specimen obtained. 14:36 CT Abd/Pelvis - Without Contrast In Process Unspecified. EDMS 15:40 IV discontinued, intact, bleeding controlled, No redness/swelling at site. Pressure tl4 dressing applied. Administered Medications: 14:11 Drug: hydrALAZINE IVP 10 mg IVP once Route: IVP; Site: right antecubital; tl4 14:51 Follow up: Response: No adverse reaction; Blood pressure is unchanged tl4 14:50 Drug: Ondansetron IVP 4 mg IVP once; over 2 minutes Route: IVP; Infused Over: 2 mins; tl4 Site: right antecubital; 15:14 Follow up: Response: No adverse reaction tl4 14:50 Drug: morphine IVP or IV 2 mg IVP once over 4 mins Route: IVP; Infused Over: 4 mins; tl4 Site: right antecubital; 15:14 Follow up: Response: No adverse reaction; Pain is decreased tl4 14:51 Drug: Labetalol IV 10 mg IV at 1 calculated rate once Route: IV; Rate: 1 calculated tl4 rate; Site: right antecubital; 15:14 Follow up: Response: No adverse reaction; Blood pressure is lowered; IV Status: tl4 Completed infusion Medication: 13:03 VIS not applicable for this client. tl4 Outcome: 15:16 Discharge ordered by MD. jh7 15:40 Discharged to home ambulatory, with family, tl4 15:40 Condition: stable 15:40 Discharge instructions given to patient, family, Instructed on discharge instructions, follow up and referral plans. medication usage, Demonstrated understanding of instructions, follow-up care, medications, Prescriptions given X 1, 15:41 Patient left the ED. tl4 Signatures: Dispatcher [employer] EDMS Irais Woodson, Reg Reg mr Katt Ingram, RN RN Lorenzo Laurent RN RN Yumiko Younger RN RN ll1 Tish Gardner FNP FNP 7 Dashawn Bronson RN RN tl4 Corrections: (The following items were deleted from the chart) 11:45 11:33 Patient placed in an exam room, on a stretcher, ll1
--- NOTE | 2023-08-02 15:17 | EDPHYS ---
Physician Documentation [facility] Name: Lashell Mathur Age: 87 yrs Sex: Female : 1935 Arrival Date: 08/02/2023 Time: 11:01 Bed 15 Private MD: ED Physician Jose Raul Prakash HPI: 08/01 11:12 This 87 yrs old Female presents to ER via Ambulatory with complaints of community hospital Urinary Problem, malaise. 11:12 87-year-old female with a past medical history of hypertension and dementia presents to community hospital the ER for malaise and possible UTI. The patient's son states that she woke him up early this morning and stated that she needed to go to the hospital. He said that she has a history of UTIs but that she keeps repeating " I do not feel well." She denies chest pain, shortness of breath, fever, and dizziness. When asked if it rodriguez when she urinates she states "yes".. Historical: - Allergies: 11:13 No Known Allergies; bp - PMHx: 11:13 Aneurysm; Hypertensive disorder; Dementia; bp - Immunization history:: Adult Immunizations up to date. - Infectious Disease History:: Denies. - Social history:: Smoking status: Patient denies any tobacco usage or history of. ROS: 11:12 Constitutional: Per [place] [id number] Exam: 11:12 Constitutional: This is a well developed, well nourished patient who is awake, alert, community hospital and in no acute distress. Head/Face: Normocephalic, atraumatic. Eyes: Pupils equal round and reactive to light, extra-ocular motions intact. Lids and lashes normal. Conjunctiva and sclera are non-icteric and not injected. Cornea within normal limits. Periorbital areas with no swelling, redness, or edema. Neck: Trachea midline, no thyromegaly or masses palpated, and no cervical lymphadenopathy. Supple, full range of motion without nuchal rigidity, or vertebral point tenderness. No Meningismus. Cardiovascular: Regular rate and rhythm with a normal S1 and S2. No gallops, murmurs, or rubs. Normal PMI, no JVD. No pulse deficits. Respiratory: Lungs have equal breath sounds bilaterally, clear to auscultation and percussion. No rales, rhonchi or wheezes noted. No increased work of breathing, no retractions or nasal flaring. Abdomen/GI: Soft, non-tender, with normal bowel sounds. No distension or tympany. No guarding or rebound. No evidence of tenderness throughout. Skin: Warm, dry with normal turgor. Normal color with no rashes, no lesions, and no evidence of cellulitis. MS/ Extremity: Pulses equal, no cyanosis. Neurovascular intact. Full, normal range of motion. 11:12 Neuro: Orientation: Not oriented to place, time, situation, Mentation: is normal, jh7 Motor: is normal, Sensation: is normal, Gait: is steady, at baseline per the patient's son, Vital Signs: 11:12 BP 204 / 92; Pulse 103; Resp 16; Temp 97.8; Pulse Ox 97% ; bp 12:12 BP 203 / 98; Pulse 85; Resp 18; Pulse Ox 100% on R/A; Pain 0/10; tl4 12:30 BP 208 / 89; Pulse 83; Resp 18; Pulse Ox 100% on R/A; tl4 13:00 BP 209 / 91; Pulse 81; Resp 16; Pulse Ox 100% on R/A; Pain 0/10; tl4 13:30 BP 200 / 89; Pulse 94; Resp 20; Pulse Ox 100% ; tl4 14:00 BP 223 / 79; Pulse 100; Resp 20; Pulse Ox 100% on R/A; tl4 14:30 BP 198 / 93; Pulse 94; Resp 16; Pulse Ox 99% on R/A; tl4 15:00 BP 166 / 75; Pulse 89; Resp 18; Pulse Ox 100% on R/A; Pain 0/10; tl4 15:40 BP 155 / 70; Pulse 82; Resp 16; Temp 98.1(O); Pulse Ox 99% on R/A; Pain 0/10; tl4 12:12 Pain Scale: Adult tl4 13:00 Pain Scale: Adult tl4 15:00 Pain Scale: Adult tl4 15:40 Pain Scale: Adult tl4 MDM: 11:05 Patient medically screened. jh7 14:26 ED course: Reevaluated the patient. The patient stated that she was experiencing right jh7 lower quadrant pain radiating to her flank. Right lower quadrant tender upon palpation. Will order a CT.. 08/01 11:12 Order name: CBC with Diff; Complete Time: 12:58 [facility] 08/01 11:12 Order name: CMP; Complete Time: 13:30 [facility] 08/01 11:12 Order name: Lipase; Complete Time: 13:30 [facility] 08/01 11:12 Order name: Urinalysis w/ reflexes; Complete Time: 14:19 [facility] 08/01 11:12 Order name: Troponin High Sensitivity; Complete Time: 13:30 [facility] 08/01 11:12 Order name: PROBNP; Complete Time: 13:30 [facility] 08/01 11:12 Order name: XRAY Chest (1 view); Complete Time: 12:19 [facility] 08/01 14:25 Order name: CT Abd/Pelvis - Without Contrast; Complete Time: 15:13 [facility] 08/01 11:12 Order name: IV Saline Lock; Complete Time: 12:51 [facility] 08/01 11:12 Order name: Labs collected and sent; Complete Time: 12:51 [facility] 08/01 11:12 Order name: EKG - Nurse/Tech; Complete Time: 12:51 [facility] 08/01 12:42 Order name: Recheck Blood Pressure; Complete Time: 12:51 [facility] 08/01 13:31 Order name: Straight Cath - Urine; Complete Time: 14:11 [facility] 08/01 15:13 Order name: Recheck Blood Pressure; Complete Time: 15:14 jh7 EC:26 Rate is 91 beats/min. Rhythm is regular. QRS Parker is Normal. OK interval is normal at jh7 188 msec. QRS interval is normal at 64 msec. QT interval is normal at 356 msec. No Q waves. T waves are Normal. No ST changes noted. Clinical impression: Normal ECG. Administered Medications: 14:11 Drug: hydrALAZINE IVP 10 mg IVP once Route: IVP; Site: right antecubital; tl4 14:51 Follow up: Response: No adverse reaction; Blood pressure is unchanged tl4 14:50 Drug: Ondansetron IVP 4 mg IVP once; over 2 minutes Route: IVP; Infused Over: 2 mins; tl4 Site: right antecubital; 15:14 Follow up: Response: No adverse reaction tl4 14:50 Drug: morphine IVP or IV 2 mg IVP once over 4 mins Route: IVP; Infused Over: 4 mins; tl4 Site: right antecubital; 15:14 Follow up: Response: No adverse reaction; Pain is decreased tl4 14:51 Drug: Labetalol IV 10 mg IV at 1 calculated rate once Route: IV; Rate: 1 calculated tl4 rate; Site: right antecubital; 15:14 Follow up: Response: No adverse reaction; Blood pressure is lowered; IV Status: tl4 Completed infusion Disposition: 16:10 Co-signature as Attending Physician, Jose Raul Prakash MD I reviewed the patient's care rn provided by the Advanced Practice Provider and agree with the diagnosis and treatment plan. Disposition Summary: 08/02/23 15:16 Discharge Ordered Notes: Location: Home [facility] Problem: new [facility] hospital Symptoms: have improved jh Condition: Stable [facility] Diagnosis - Dysuria jh7 - Lower abdominal pain, unspecified jh7 - Essential (primary) hypertension community hospital Followup: [facility] hospital - With: Private Physician - When: 2 - 3 days - Reason: Recheck today's complaints Discharge Instructions: - Discharge Summary Sheet community hospital - Dysuria 7 - Hypertension, Adult [facility] - Abdominal or Pelvic Ultrasound [facility] - Pelvic Mass, Female [facility] hospital Forms: - Medication Reconciliation Form 7 - Antibiotic Education 7 - Patient Portal Instructions community hospital - Leadership Thank You Letter community hospital Prescriptions: - cefdinir 300 mg Oral capsule - take 1 capsule ORAL route 2 times per day for 7 days; 14 capsule; Refills: 0, jh7 Product Selection Permitted Signatures: Dispatcher [employer] Jose Raul Daugherty MD MD rn Peltier, Brian, RN RN bp Hadash, Jennifer, FNP [place] [id number] Dashawn Bronson RN RN tl4 Corrections: (The following items were deleted from the chart) 13:54 11:12 Constitutional: This is a well developed, well nourished patient who is awake, jh7 alert, and in no acute distress. Head/Face: Normocephalic, atraumatic. Eyes: Pupils equal round and reactive to light, extra-ocular motions intact. Lids and lashes normal. Conjunctiva and sclera are non-icteric and not injected. Cornea within normal limits. Periorbital areas with no swelling, redness, or edema. Neck: Trachea midline, no thyromegaly or masses palpated, and no cervical lymphadenopathy. Supple, full range of motion without nuchal rigidity, or vertebral point tenderness. No Meningismus. Cardiovascular: Regular rate and rhythm with a normal S1 and S2. No gallops, murmurs, or rubs. Normal PMI, no JVD. No pulse deficits. Respiratory: Lungs have equal breath sounds bilaterally, clear to auscultation and percussion. No rales, rhonchi or wheezes noted. No increased work of breathing, no retractions or nasal flaring. Abdomen/GI: Soft, non-tender, with normal bowel sounds. No distension or tympany. No guarding or rebound. No evidence of tenderness throughout. Skin: Warm, dry with normal turgor. Normal color with no rashes, no lesions, and no evidence of cellulitis. MS/ Extremity: Pulses equal, no cyanosis. Neurovascular intact. Full, normal range of motion. Neuro: Awake and alert, GCS 15, oriented to person, place, time, and situation. Motor strength 5/5 in all extremities. Sensory grossly intact. Cerebellar exam normal. Normal gait. [facility] 14:25 14:25 Abdomen Pelvis Wo Con+CT.RAD.BRZ ordered. EDMS EDMS 14:26 11:12 Neuro: Orientation: Not oriented to place, time, situation, Mentation: is normal, [facility] Motor: is normal, Sensation: is normal, Gait: is steady, [facility]
[2023-08-02 15:56] VITALS: O2SAT 99
[2023-08-02 16:19] VITALS: BP 155/70; TEMP 98.1
--- NOTE | 2023-08-03 11:02 | EKG ---
Test Date: 2023-08-02 Test Time: 12:26:23 [employer] Mechanical Technician: TL MEASUREMENT RESULTS: Intervals: Rate: 91 FL: 188 QRSD: 64 QT: 356 QTc: 437 [place]: P: 47 FL: 188 QRS: -11 T: 69 INTERPRETIVE STATEMENTS: Normal sinus rhythm Normal ECG Compared to ECG 04/29/2023 16:52:46 Myocardial infarct finding no longer present Electronically Signed On 08-03-23 10:59:41 CDT by Mark Salinas
== END 2023-08-02 15:41 | disposition home or self-care (01) ==
LOC: ER 11:01
DX: R30.0 Dysuria (principal); R10.30 Lower abdominal pain, unspecified; I10 Essential (primary) hypertension; F03.90 Unspecified dementia, unspecified severity, without behavioral disturbance, psychotic disturbance, mood disturbance, and anxiety
CPT/HCPCS: 96365; 93005; 85025; 81001; 36415; 84484; 83690; 80053; 83880; 74176; 71045; 51702; 96375; 99285; J0360; J2270; J2405